=== PATIENT | male | born 1955 | race African-American/Black ===

== ENCOUNTER 2017-01-01 19:10 | Inpatient (IN) | payer BC ==
[~2017-01-01] VITALS: Ht 177.8 cm; Wt 73.0 kg
[2017-01-01 19:10] VITALS: BP_SYST 120
[2017-01-01] MEDS ORDERED: NACL 0.9% 1,000 ML IV SCH ×2 (19:14→23:45)
[2017-01-01] MEDS ORDERED: TACR1CAP PO (19:28)
[2017-01-01] MEDS ORDERED: COR25 PO (19:29)
[2017-01-01] MEDS ORDERED: ACETAMINOPHEN 500 MG TABLET PO ONE (19:30)
[2017-01-01] MEDS ORDERED: PRED5TAB PO (19:30)
[2017-01-01] MEDS ORDERED: MYCO500T PO (19:30)
[2017-01-01] MEDS ORDERED: VALS160T2 PO (19:31)
[2017-01-01] MEDS ORDERED: CALC0.258 PO (19:31)
[2017-01-01] MEDS ORDERED: UBID50TA3 PO (19:31)
[2017-01-01] MEDS ORDERED: FAMO20TA8 PO (19:32)
[2017-01-01] MEDS ORDERED: L.RH1CAP PO (19:32)
[2017-01-01] MEDS ORDERED: INSU100V SUBCUT (19:36)
[2017-01-01] MEDS ORDERED: ASPI81TA2 PO (19:37)
[2017-01-01] MEDS ORDERED: MULT PO (19:39)
[2017-01-01] MEDS ORDERED: ASCO500T20 PO (19:40)
[2017-01-01] MEDS ORDERED: CHOL500052 PO (19:41)
[2017-01-01] MEDS ORDERED: CHOL100053 PO (19:41)
[2017-01-01 19:56] LABS: INR 1.3 (0.80-1.20); PROTHROMBIN TIME 14.3 SECS (9.5-12.5)
[2017-01-01 20:04] LABS: CALCIUM 8.8 mg/dL (8.4-11.0); CHLORIDE 100 mmol/L (98-107); CREATININE 2.03 mg/dL (0.55-1.30); GLUCOSE 151 mg/dL (70-99); SODIUM SERUM 130 mmol/L (136-145); UREA NITROGEN, BLOOD 28 mg/dL (8-21)
[2017-01-01 20:05] LABS: EOSINOPHILS % (AUTO) 0.1 % (0.0-4.0); HEMATOCRIT 27.3 % (36-54); HEMOGLOBIN 8.7 g/dL (14.0-18.0); LYMPHOCYTES # (AUTO) 0.4 K/uL (1.0-5.5); LYMPHOCYTES % (AUTO) 15.5 % (20.5-51.5); MEAN CORPUSCULAR HEMOGLOBIN 27 pg (27-31); MEAN CORPUSCULAR HGB CONC 32 % (32-36); MEAN CORPUSCULAR VOLUME 84 fL (79.0-98.0); MONOCYTES # (AUTO) 0.1 K/uL (0.0-1.0); MONOCYTES % (AUTO) 3.6 % (1.7-9.3); NEUTROPHILS # (AUTO) 2.3 K/uL (1.8-7.7); NEUTROPHILS % (AUTO) 80.8 % (40.0-70.0); PLATELET COUNT (AUTO) 157 K/uL (130-430); RED BLOOD CELL COUNT(AUTO) 3.23 MIL/uL (4.2-6.2); RED CELL DISTRIBUTION WIDTH 18.1 % (9.0-15.0); WHITE BLOOD COUNT (AUTO) 2.8 K/uL (4.8-10.8)
[2017-01-01 20:09] LABS: ALANINE AMINOTRANSFERASE 26 U/L (12-78); ALBUMIN 2.1 g/dL (3.4-4.8); ASPARTATE AMINOTRANSFERASE 31 U/L (10-37); TOTAL BILIRUBIN 0.3 mg/dL (0.0-1.0); TOTAL PROTEIN, SERUM 7.3 g/dL (6.4-8.3)
[2017-01-01 20:15] LABS: GFR AFRICAN AMERICAN 43 mL/min (>90)
[2017-01-01 20:16] LABS: ANION GAP < 3 (5-15)
[2017-01-01] MEDS ORDERED: NS 500 ML IV ONE (21:30)
[2017-01-01] MEDS ORDERED: CALC-886 PO (22:02)
[2017-01-01] MEDS ORDERED: MAGNESIUM PO (22:04)
[2017-01-01] MEDS ORDERED: PROTEIN PO (22:04)
[2017-01-01] MEDS ORDERED: CEPH500C2 PO (22:05)
[2017-01-01] MEDS ORDERED: WARF1TAB2 PO (22:05)
[2017-01-01] MEDS ORDERED: OMEG300C3 PO (22:05)
[2017-01-01] MEDS ORDERED: cefTRIAXone 2 GM VIAL ONE (22:23)
[2017-01-01 23:05] VITALS: BP_SYST 108
[2017-01-01] MEDS ORDERED: ACETAMINOPHEN 325 MG TABLET PO PRN (23:45)
[2017-01-02] MEDS ORDERED: PIPERACILLIN/TAZOBACTAM 3.375 GM/VIAL (ZOSYN) IV ONE (00:11)
[2017-01-02] MEDS: PIPERACILLIN/TAZO 3.375/DEX-IS 50 ML IV SCH ×2 (00:18→05:32)
[2017-01-02 00:58] VITALS: BP_SYST 108
[2017-01-02] MEDS ORDERED: DEXTROSE 50% JECT 50 ML DISP.SYRIN ONE (06:26)
[2017-01-02] MEDS ORDERED: DEXTROSE 50% JECT 50 ML DISP.SYRIN IVP ONE (06:30)
[2017-01-02] MEDS ORDERED: NS 500 ML IV ONE (07:30)
[2017-01-02 08:00] VITALS: BP_SYST 116
[2017-01-02 08:28] LABS: BASOPHILS % (AUTO) 0.5 % (0.0-2.0); EOSINOPHILS % (AUTO) 0.1 % (0.0-4.0); HEMOGLOBIN 8.4 g/dL (14.0-18.0); LYMPHOCYTES # (AUTO) 0.4 K/uL (1.0-5.5); LYMPHOCYTES % (AUTO) 17.6 % (20.5-51.5); MEAN CORPUSCULAR HEMOGLOBIN 27 pg (27-31); MEAN CORPUSCULAR HGB CONC 33 % (32-36); MEAN CORPUSCULAR VOLUME 84 fL (79.0-98.0); MONOCYTES # (AUTO) 0.1 K/uL (0.0-1.0); MONOCYTES % (AUTO) 5.1 % (1.7-9.3); NEUTROPHILS # (AUTO) 1.8 K/uL (1.8-7.7); NEUTROPHILS % (AUTO) 76.7 % (40.0-70.0); PLATELET COUNT (AUTO) 125 K/uL (130-430); RED CELL DISTRIBUTION WIDTH 18.2 % (9.0-15.0); WHITE BLOOD COUNT (AUTO) 2.3 K/uL (4.8-10.8)
[2017-01-02 08:38] LABS: INR 1.4 (0.80-1.20); PROTHROMBIN TIME 15.3 SECS (9.5-12.5)
[2017-01-02 08:44] LABS: ALBUMIN 1.7 g/dL (3.4-4.8); CREATININE 1.93 mg/dL (0.55-1.30); POTASSIUM 4.2 mmol/L (3.5-5.1); TOTAL BILIRUBIN 0.3 mg/dL (0.0-1.0); TOTAL PROTEIN, SERUM 6.3 g/dL (6.4-8.3)
[2017-01-02] MEDS ORDERED: PROTEIN PO SCH (09:00)
[2017-01-02] MEDS ORDERED: MAGNESIUM PO SCH (09:00)
[2017-01-02] MEDS ORDERED: NON-FORMULARY MEDICATION (Omega-3 Fatty Acids (Fish Oil) 300 MG) PO SCH (09:00)
[2017-01-02] MEDS ORDERED: WARFARIN SODIUM 1 MG TABLET PO SCH ×2 (09:00→18:00)
[2017-01-02] MEDS ORDERED: NON-FORMULARY MEDICATION (Ubidecarenone (Coq10) 100 MG) PO SCH (09:00)
[2017-01-02] MEDS ORDERED: LACTOBACILLUS RHAMNOSUS GG 1 CAP CAPSULE PO SCH (09:00)
[2017-01-02] MEDS: PREDNISONE 20 MG TABLET PO SCH (09:08)
[2017-01-02] MEDS: CALCITRIOL 0.25 MCG CAPSULE PO SCH (09:09)
[2017-01-02] MEDS: VALSARTAN 160 MG TABLET (DIOVAN) PO SCH (09:09)
[2017-01-02] MEDS: ASCORBIC ACID 500 MG TABLET PO SCH (09:10)
[2017-01-02] MEDS: FAMOTIDINE 20 MG TABLET PO SCH (09:11)
[2017-01-02] MEDS: CARVEDILOL 25 MG TABLET (COREG) PO SCH ×2 (09:11→20:50)
[2017-01-02] MEDS: MULTIVITAMINS TAB 1 TABLET PO SCH (09:11)
[2017-01-02] MEDS: ASPIRIN 81 MG TAB.CHEW PO SCH (09:11)
[2017-01-02 09:27] LABS: BILIRUBIN,URINE NEGATIVE (NEGATIVE); BLOOD, URINE NEGATIVE (NEGATIVE); CLARITY/URINE CLEAR (CLEAR); COLOR,URINE YELLOW (YELLOW); GLUCOSE,URINE NEGATIVE (NEGATIVE); KETONES,URINE NEGATIVE (NEGATIVE); LEUKOCYTE ESTERASE ,URINE NEGATIVE (NEGATIVE); NITRITE, URINE NEGATIVE (NEGATIVE); PH,URINE 6.5 (5.0-8.0); PROTEIN URINE TRACE (NEGATIVE); UROBILINOGEN,URINE 0.2 (0.2-1.0)
[2017-01-02] MEDS: MYCOPHENOLATE MOFETIL 250 MG CAPSULE PO SCH ×2 (09:29→20:51)
[2017-01-02] MEDS: D5/0.45 NS 1,000 ML IV SCH ×2 (09:33→20:49)
[2017-01-02 12:00] VITALS: BP_SYST 96
[2017-01-02 16:00] VITALS: BP_SYST 94
[2017-01-02] MEDS: TACROLIMUS ANHYDROUS 1 MG CAPSULE (PROGRAF) PO SCH ×2 (17:03→20:50)
[2017-01-02] MEDS: INSULIN REGULAR, HUMAN 100 UNITS/ML, 10 ML VIAL (novoLIN R) SUBCUT PRN ×2 (17:08→20:56)
[2017-01-02 20:00] VITALS: BP_SYST 99
[2017-01-02] MEDS: metroNIDAZOLE 500 MG TABLET PO SCH (20:49)
[2017-01-02] MEDS: DOXYCYCLINE HYCLATE 100 MG CAPSULE PO SCH (20:49)
[2017-01-02] MEDS: CEFEPIME 1 GM in D5W 50 ML IV SCH (20:49)
[2017-01-02 23:42] VITALS: BP_SYST 109
[2017-01-02] MEDS: NACL 0.9% 1,000 ML IV SCH (23:44)
[2017-01-03 04:17] VITALS: BP_SYST 146
[2017-01-03] MEDS: INSULIN REGULAR, HUMAN 100 UNITS/ML, 10 ML VIAL (novoLIN R) SUBCUT PRN ×3 (06:30→17:33)
[2017-01-03 07:15] LABS: HEMOGLOBIN 7.9 g/dL (14.0-18.0); RED CELL DISTRIBUTION WIDTH 18.3 % (9.0-15.0)
[2017-01-03 07:28] LABS: HEMATOCRIT 24.5 % (36-54); MEAN CORPUSCULAR HEMOGLOBIN 27 pg (27-31); MEAN CORPUSCULAR HGB CONC 32 % (32-36); MEAN CORPUSCULAR VOLUME 84 fL (79.0-98.0); PLATELET COUNT (AUTO) 125 K/uL (130-430); RED BLOOD CELL COUNT(AUTO) 2.92 MIL/uL (4.2-6.2); WHITE BLOOD COUNT (AUTO) 2.2 K/uL (4.8-10.8)
[2017-01-03 07:29] LABS: CALCIUM 8.1 mg/dL (8.4-11.0); CREATININE 1.71 mg/dL (0.55-1.30); POTASSIUM 4.3 mmol/L (3.5-5.1)
[2017-01-03 07:32] LABS: INR 1.3 (0.80-1.20); PROTHROMBIN TIME 14.5 SECS (9.5-12.5)
[2017-01-03 08:30] VITALS: BP_SYST 148
[2017-01-03 08:39] LABS: BAND % (MANUAL) 17 % (0-6); BASOPHILS % (MANUAL) 0 % (0-2); EOSINOPHILS % (MANUAL) 1 % (0-7); LYMPHOCYTES % (MANUAL) 17 % (20-46); MONOCYTES % (MANUAL) 4 % (0-11)
[2017-01-03] MEDS: PREDNISONE 20 MG TABLET PO SCH (08:59)
[2017-01-03] MEDS: LACTOBACILLUS RHAMNOSUS GG 1 CAP CAPSULE PO SCH ×2 (09:00→20:48)
[2017-01-03] MEDS: CALCITRIOL 0.25 MCG CAPSULE PO SCH (09:00)
[2017-01-03] MEDS: DOXYCYCLINE HYCLATE 100 MG CAPSULE PO SCH ×2 (09:00→21:15)
[2017-01-03] MEDS: CALCIUM CARBONATE/VITAMIN D3 1 TAB TABLET PO SCH (09:01)
[2017-01-03] MEDS: VALSARTAN 160 MG TABLET (DIOVAN) PO SCH (09:02)
[2017-01-03] MEDS: CHOLECALCIFEROL (VITAMIN D3) 2,000 UNIT TABLET PO SCH ×3 (09:03→20:48)
[2017-01-03] MEDS: FAMOTIDINE 20 MG TABLET PO SCH (09:04)
[2017-01-03] MEDS: metroNIDAZOLE 500 MG TABLET PO SCH ×3 (09:04→20:48)
[2017-01-03] MEDS: CARVEDILOL 25 MG TABLET (COREG) PO SCH ×2 (09:04→20:51)
[2017-01-03] MEDS: MULTIVITAMINS TAB 1 TABLET PO SCH (09:04)
[2017-01-03] MEDS: ASPIRIN 81 MG TAB.CHEW PO SCH (09:04)
[2017-01-03] MEDS: ASCORBIC ACID 500 MG TABLET PO SCH (09:04)
[2017-01-03] MEDS: TACROLIMUS ANHYDROUS 1 MG CAPSULE (PROGRAF) PO SCH ×4 (09:05→20:49)
[2017-01-03] MEDS: MYCOPHENOLATE MOFETIL 250 MG CAPSULE PO SCH ×2 (09:05→20:49)
[2017-01-03] MEDS: CEFEPIME 1 GM in D5W 50 ML IV SCH ×2 (09:06→20:53)
[2017-01-03] MEDS: NACL 0.9% 1,000 ML IV SCH (09:50)
[2017-01-03] MEDS ORDERED: INSULIN ASPART 100 UNITS/ML, 10 ML VIAL SUBCUT ONE (12:15)
[2017-01-03 12:32] VITALS: BP_SYST 139
[2017-01-03 16:16] VITALS: BP_SYST 150
[2017-01-03] MEDS: WARFARIN SODIUM 2 MG TABLET PO SCH (17:34)
[2017-01-03] MEDS: INSULIN ASPART 100 UNITS/ML, 10 ML VIAL (NovoLOG) SUBCUT PRN (20:55)
[2017-01-04 00:03] VITALS: BP_SYST 164
[2017-01-04] MEDS: NACL 0.9% 1,000 ML IV SCH ×3 (01:31→14:52)
[2017-01-04 03:56] VITALS: BP_SYST 168
[2017-01-04] MEDS ORDERED: cloNIDine HCL 0.1 MG TABLET PO PRN (05:00)
[2017-01-04] MEDS: INSULIN ASPART 100 UNITS/ML, 10 ML VIAL SUBCUT SCH ×3 (06:20→17:27)
[2017-01-04] MEDS: INSULIN ASPART 100 UNITS/ML, 10 ML VIAL (NovoLOG) SUBCUT PRN ×4 (06:23→21:17)
[2017-01-04 06:58] LABS: BASOPHILS % (AUTO) 0.2 % (0.0-2.0); EOSINOPHILS % (AUTO) 0.3 % (0.0-4.0); HEMATOCRIT 25.7 % (36-54); HEMOGLOBIN 8.2 g/dL (14.0-18.0); LYMPHOCYTES # (AUTO) 0.5 K/uL (1.0-5.5); LYMPHOCYTES % (AUTO) 20.1 % (20.5-51.5); MEAN CORPUSCULAR HEMOGLOBIN 27 pg (27-31); MEAN CORPUSCULAR HGB CONC 32 % (32-36); MEAN CORPUSCULAR VOLUME 84 fL (79.0-98.0); MONOCYTES # (AUTO) 0.2 K/uL (0.0-1.0); MONOCYTES % (AUTO) 6.8 % (1.7-9.3); NEUTROPHILS % (AUTO) 72.6 % (40.0-70.0); PLATELET COUNT (AUTO) 146 K/uL (130-430); RED BLOOD CELL COUNT(AUTO) 3.06 MIL/uL (4.2-6.2); RED CELL DISTRIBUTION WIDTH 17.8 % (9.0-15.0); WHITE BLOOD COUNT (AUTO) 2.7 K/uL (4.8-10.8)
[2017-01-04 07:15] LABS: CALCIUM 8.6 mg/dL (8.4-11.0); CREATININE 1.38 mg/dL (0.55-1.30); POTASSIUM 4.2 mmol/L (3.5-5.1); THYROID STIMULATING HORMONE 1.87 uIu/mL (0.34-4.82)
[2017-01-04 08:00] VITALS: BP_SYST 122
[2017-01-04 08:01] LABS: IRON (SERUM) 86 mcg/dL (59-158); TOTAL IRON BIND. CAPACITY 94 ug/dL (250-450)
[2017-01-04] MEDS: TACROLIMUS ANHYDROUS 1 MG CAPSULE (PROGRAF) PO SCH ×4 (10:30→21:17)
[2017-01-04] MEDS: CEFEPIME 1 GM in D5W 50 ML IV SCH ×2 (10:30→21:17)
[2017-01-04] MEDS: MYCOPHENOLATE MOFETIL 250 MG CAPSULE PO SCH ×2 (10:30→21:18)
[2017-01-04] MEDS: CHOLECALCIFEROL (VITAMIN D3) 2,000 UNIT TABLET PO SCH ×2 (10:31→21:19)
[2017-01-04] MEDS: VALSARTAN 160 MG TABLET (DIOVAN) PO SCH (10:32)
[2017-01-04] MEDS: metroNIDAZOLE 500 MG TABLET PO SCH ×3 (10:32→21:18)
[2017-01-04] MEDS: LACTOBACILLUS RHAMNOSUS GG 1 CAP CAPSULE PO SCH ×2 (10:32→21:19)
[2017-01-04] MEDS: CARVEDILOL 25 MG TABLET (COREG) PO SCH ×2 (10:33→21:20)
[2017-01-04] MEDS: CALCIUM CARBONATE/VITAMIN D3 1 TAB TABLET PO SCH (10:34)
[2017-01-04] MEDS: MULTIVITAMINS TAB 1 TABLET PO SCH (10:34)
[2017-01-04] MEDS: ASCORBIC ACID 500 MG TABLET PO SCH (10:34)
[2017-01-04] MEDS: ASPIRIN 81 MG TAB.CHEW PO SCH (10:34)
[2017-01-04] MEDS: DOXYCYCLINE HYCLATE 100 MG CAPSULE PO SCH ×2 (10:34→21:19)
[2017-01-04] MEDS: FAMOTIDINE 20 MG TABLET PO SCH (10:35)
[2017-01-04] MEDS: PREDNISONE 20 MG TABLET PO SCH (10:35)
[2017-01-04] MEDS: CALCITRIOL 0.25 MCG CAPSULE PO SCH (11:44)
[2017-01-04 12:16] VITALS: BP_SYST 152
[2017-01-04 16:02] VITALS: BP_SYST 147
[2017-01-04] MEDS: WARFARIN SODIUM 2 MG TABLET PO SCH (17:26)
[2017-01-04 19:45] VITALS: BP_SYST 154
[2017-01-05] MEDS: NACL 0.9% 1,000 ML IV SCH ×3 (00:11→11:29)
[2017-01-05 00:34] VITALS: BP_SYST 139
[2017-01-05 04:00] VITALS: BP_SYST 143
[2017-01-05] MEDS: INSULIN ASPART 100 UNITS/ML, 10 ML VIAL SUBCUT SCH ×3 (06:23→17:00)
[2017-01-05 07:10] LABS: CALCIUM 8.7 mg/dL (8.4-11.0); CREATININE 1.35 mg/dL (0.55-1.30); POTASSIUM 4.5 mmol/L (3.5-5.1)
[2017-01-05 07:12] LABS: INR 1.3 (0.80-1.20); PROTHROMBIN TIME 14.5 SECS (9.5-12.5)
[2017-01-05 07:22] LABS: HEMATOCRIT 25.1 % (36-54); HEMOGLOBIN 8.3 g/dL (14.0-18.0); MEAN CORPUSCULAR HEMOGLOBIN 28 pg (27-31); MEAN CORPUSCULAR HGB CONC 33 % (32-36); MEAN CORPUSCULAR VOLUME 84 fL (79.0-98.0); PLATELET COUNT (AUTO) 135 K/uL (130-430); RED BLOOD CELL COUNT(AUTO) 2.98 MIL/uL (4.2-6.2); RED CELL DISTRIBUTION WIDTH 18.1 % (9.0-15.0); WHITE BLOOD COUNT (AUTO) 2.8 K/uL (4.8-10.8)
[2017-01-05 08:17] LABS: BAND % (MANUAL) 14 % (0-6); BASOPHILS % (MANUAL) 0 % (0-2); EOSINOPHILS % (MANUAL) 0 % (0-7); LYMPHOCYTES % (MANUAL) 29 % (20-46); MONOCYTES % (MANUAL) 4 % (0-11)
[2017-01-05] MEDS: CEFEPIME 1 GM in D5W 50 ML IV SCH (08:21)
[2017-01-05] MEDS: ASPIRIN 81 MG TAB.CHEW PO SCH (08:22)
[2017-01-05] MEDS: ASCORBIC ACID 500 MG TABLET PO SCH (08:22)
[2017-01-05] MEDS: LACTOBACILLUS RHAMNOSUS GG 1 CAP CAPSULE PO SCH (08:22)
[2017-01-05] MEDS: DOXYCYCLINE HYCLATE 100 MG CAPSULE PO SCH (08:22)
[2017-01-05] MEDS: CARVEDILOL 25 MG TABLET (COREG) PO SCH (08:22)
[2017-01-05] MEDS: FAMOTIDINE 20 MG TABLET PO SCH (08:22)
[2017-01-05] MEDS: VALSARTAN 160 MG TABLET (DIOVAN) PO SCH (08:22)
[2017-01-05] MEDS: MYCOPHENOLATE MOFETIL 250 MG CAPSULE PO SCH (08:23)
[2017-01-05] MEDS: MULTIVITAMINS TAB 1 TABLET PO SCH (08:23)
[2017-01-05] MEDS: metroNIDAZOLE 500 MG TABLET PO SCH ×2 (08:23→14:03)
[2017-01-05] MEDS: TACROLIMUS ANHYDROUS 1 MG CAPSULE (PROGRAF) PO SCH ×3 (08:23→17:16)
[2017-01-05] MEDS: PREDNISONE 20 MG TABLET PO SCH (08:23)
[2017-01-05] MEDS: CHOLECALCIFEROL (VITAMIN D3) 2,000 UNIT TABLET PO SCH (08:23)
[2017-01-05] MEDS: CALCIUM CARBONATE/VITAMIN D3 1 TAB TABLET PO SCH (09:21)
[2017-01-05] MEDS: CALCITRIOL 0.25 MCG CAPSULE PO SCH (09:21)
[2017-01-05 09:30] VITALS: BP_SYST 151
[2017-01-05] MEDS: INSULIN ASPART 100 UNITS/ML, 10 ML VIAL (NovoLOG) SUBCUT PRN (11:29)
[2017-01-05 11:48] VITALS: BP_SYST 148
[2017-01-05 15:25] VITALS: BP_SYST 144
[2017-01-05 16:47] VITALS: BP_SYST 144
[2017-01-05] MEDS ORDERED: METR500T PO (16:59)
[2017-01-05] MEDS ORDERED: EPOETIN ALFA 3,000 UNITS/ML VIAL SUBCUT SCH (17:00)
[2017-01-05] MEDS ORDERED: WARFARIN SODIUM 3 MG TABLET PO SCH (18:00)
== END 2017-01-05 18:00 | disposition home or self-care (01) | DRG 371 ==
LOC: SED 19:10 → STU 22:01
PROVIDERS: ADMIT Internal Medicine; ATTEND Internal Medicine
DX: A04.7 Enterocolitis due to Clostridium difficile (principal); E43 Unspecified severe protein-calorie malnutrition; N18.6 End stage renal disease; Z94.0 Kidney transplant status; I12.0 Hypertensive chronic kidney disease with stage 5 chronic kidney disease or end stage renal disease; L97.419 Non-pressure chronic ulcer of right heel and midfoot with unspecified severity; L97.429 Non-pressure chronic ulcer of left heel and midfoot with unspecified severity; L03.116 Cellulitis of left lower limb; L03.115 Cellulitis of right lower limb; D69.6 Thrombocytopenia, unspecified; D64.9 Anemia, unspecified; E11.649 Type 2 diabetes mellitus with hypoglycemia without coma; E11.22 Type 2 diabetes mellitus with diabetic chronic kidney disease; E11.621 Type 2 diabetes mellitus with foot ulcer; K21.9 Gastro-esophageal reflux disease without esophagitis; M72.9 Fibroblastic disorder, unspecified; Z79.899 Other long term (current) drug therapy; Z79.82 Long term (current) use of aspirin; Z79.4 Long term (current) use of insulin; Z68.23 Body mass index [BMI] 23.0-23.9, adult
CPT/HCPCS: 36415; 71010; 80048; 80053; 81003; 82150-TC; 82272; 82607; 82728; 82746; 82962; 83036; 83540-TC; 83550-TC; 83605; 84443-TC; 85007; 85025; 85027; 85610-TC; 85651-TC; 85730-TC; 86140; 86480; 86635; 87040-TC; 87070-TC; 87081; 87230-TC; 93005; 96365; 97116-GP; 97530-GP; 99285; J0692; J0696; J0885; J1815; J2543; J7030; J7040; J7060; J7507; J7512; J7517

== ENCOUNTER 2017-02-20 16:48 | Inpatient (IN) | payer BC ==
[~2017-02-20] VITALS: Ht 180.3 cm; Wt 69.9 kg
[2017-02-20 16:48] VITALS: BP_SYST 107
[~2017-02-20 16:48] MED LIST: ASCO500T20 PO; ASPI81TA2 PO; CALC-886 PO; CALC0.258 PO; CHOL500052 PO; COR25 PO; FAMO20TA8 PO; INSU100V SUBCUT; L.RH1CAP PO; MAGNESIUM PO; METR500T PO; MULT PO; MYCO500T PO; OMEG300C3 PO; PROTEIN PO; TACR1CAP PO; UBID50TA3 PO; VALS160T2 PO; WARF1TAB2 PO
[2017-02-20 17:49] LABS: HEMOGLOBIN 9.2 g/dL (14.0-18.0); MEAN CORPUSCULAR HEMOGLOBIN 28 pg (27-31); MEAN CORPUSCULAR HGB CONC 33 % (32-36); MEAN CORPUSCULAR VOLUME 86 fL (79.0-98.0); RED BLOOD CELL COUNT(AUTO) 3.26 MIL/uL (4.2-6.2); RED CELL DISTRIBUTION WIDTH 18.1 % (9.0-15.0); WHITE BLOOD COUNT (AUTO) 4.7 K/uL (4.8-10.8)
[2017-02-20 18:07] LABS: PLATELET COUNT (AUTO) 62 K/uL (130-430)
[2017-02-20 18:11] LABS: CALCIUM 10.2 mg/dL (8.4-11.0); CREATININE 6.76 mg/dL (0.55-1.30); POTASSIUM 5.3 mmol/L (3.5-5.1)
[2017-02-20 18:13] LABS: INR 1.1 (0.80-1.20); PROTHROMBIN TIME 12.3 SECS (9.5-12.5)
[2017-02-20 18:16] LABS: ALBUMIN 2.5 g/dL (3.4-4.8); TOTAL BILIRUBIN 0.4 mg/dL (0.0-1.0); TOTAL PROTEIN, SERUM 9.2 g/dL (6.4-8.3)
[2017-02-20 18:27] LABS: ATYPICAL LYMPHOCYTES % 0 % (0-0); BAND % (MANUAL) 12 % (0-6); BASOPHILS % (MANUAL) 0 % (0-2); EOSINOPHILS % (MANUAL) 12 % (0-7); LYMPHOCYTES % (MANUAL) 16 % (20-46); MONOCYTES % (MANUAL) 7 % (0-11)
[2017-02-20] MEDS ORDERED: CALCIUM CHLORIDE 1 GM/10ML VIAL (13.6 mEq Ca++/VIAL) IVP ONE (18:30)
[2017-02-20] MEDS ORDERED: DEXTROSE 50% JECT 50 ML DISP.SYRIN IVP ONE (18:30)
[2017-02-20] MEDS ORDERED: SODIUM POLYSTYRENE SULFONATE 15 GM/60 ML UDBTL PO ONE (18:30)
[2017-02-20] MEDS ORDERED: SODIUM BICARBONATE 8.4% JECT 50 MEQ/50 ML SYRINGE IVP ONE (18:30)
[2017-02-20] MEDS ORDERED: INSULIN REGULAR, HUMAN 10 UNITS/0.1 ML INJ IVP ONE (18:30)
[2017-02-20] MEDS ORDERED: NACL 0.9% 1,000 ML IV ONE (18:30)
[2017-02-20] MEDS ORDERED: cefTRIAXone 1 GM IVPB PREMIX 50 ML IV ONE (18:45)
[2017-02-20 19:47] VITALS: BP_SYST 128
[2017-02-20 19:48] VITALS: BP_SYST 128
[2017-02-20] MEDS ORDERED: PROTEIN PO SCH (21:00)
[2017-02-20] MEDS ORDERED: TACROLIMUS ANHYDROUS 1 MG CAPSULE (PROGRAF) PO SCH (21:00)
[2017-02-20] MEDS ORDERED: ONDANSETRON HCL 4 MG/2 ML VIAL IVP PRN (21:00)
[2017-02-20] MEDS ORDERED: NACL 0.9% 1,000 ML IV SCH (21:00)
[2017-02-20] MEDS ORDERED: CHOLECALCIFEROL 5000 UNIT PO SCH (21:00)
[2017-02-20] MEDS ORDERED: metroNIDAZOLE 500 MG TABLET PO SCH (21:00)
[2017-02-20] MEDS ORDERED: NON-FORMULARY MEDICATION (Lactobacillus Rhamnosus Gg (Probiotic) 1 EACH) PO SCH (21:00)
[2017-02-20] MEDS ORDERED: methylPREDNISolone SOD SUCC/PF 62.5 MG/ML VIAL IVP ONE (21:00)
[2017-02-20] MEDS ORDERED: MYCOPHENOLATE MOFETIL 250 MG CAPSULE PO SCH (21:00)
[2017-02-20] MEDS ORDERED: MAGNESIUM PO SCH (21:00)
[2017-02-20] MEDS ORDERED: D5W 1,000 ML IV PRN ×2 (21:21→21:36)
[2017-02-20] MEDS ORDERED: DEXTROSE 50% JECT 50 ML DISP.SYRIN IVP PRN ×4 (21:30→21:45)
[2017-02-20] MEDS ORDERED: GLUCOSE 15 GM GEL (in 37.5 GM TUBE) PO PRN ×4 (21:30→21:45)
[2017-02-20] MEDS ORDERED: DEXTROSE 50% JECT 50 ML DISP.SYRIN ONE (21:32)
[2017-02-20] MEDS ORDERED: TAMSULOSIN HCL 0.4 MG CAP PO ONE (23:00)
[2017-02-21] VITALS (9 sets, daily range): BP systolic 132–182
[2017-02-21 01:59] LABS: BILIRUBIN,URINE NEGATIVE (NEGATIVE); BLOOD, URINE NEGATIVE (NEGATIVE); CLARITY/URINE CLEAR (CLEAR); COLOR,URINE YELLOW (YELLOW); GLUCOSE,URINE 3+ (NEGATIVE); KETONES,URINE NEGATIVE (NEGATIVE); LEUKOCYTE ESTERASE ,URINE NEGATIVE (NEGATIVE); NITRITE, URINE NEGATIVE (NEGATIVE); PH,URINE 5.5 (5.0-8.0); PROTEIN URINE TRACE (NEGATIVE); UROBILINOGEN,URINE 0.2 (0.2-1.0)
[2017-02-21 02:14] LABS: BACTERIA,URINE FEW /HPF (None Seen); MUCUS,URINE None Seen /LPF (None Seen); RBC,URINE 0-3 /HPF (0-3); WBC,URINE 0-3 /HPF (0-3)
[2017-02-21] MEDS: methylPREDNISolone SOD SUCC/PF 62.5 MG/ML VIAL IVP SCH ×3 (05:24→22:40)
[2017-02-21] MEDS: INSULIN REGULAR, HUMAN 100 UNITS/ML, 10 ML VIAL (novoLIN R) SUBCUT PRN ×2 (05:34→11:23)
[2017-02-21 06:26] LABS: BASOPHILS % (AUTO) 0.7 % (0.0-2.0); EOSINOPHILS % (AUTO) 0.1 % (0.0-4.0); HEMATOCRIT 26.1 % (36-54); HEMOGLOBIN 8.5 g/dL (14.0-18.0); LYMPHOCYTES # (AUTO) 0.3 K/uL (1.0-5.5); MEAN CORPUSCULAR HEMOGLOBIN 28 pg (27-31); MEAN CORPUSCULAR HGB CONC 33 % (32-36); MEAN CORPUSCULAR VOLUME 87 fL (79.0-98.0); MONOCYTES # (AUTO) 0.1 K/uL (0.0-1.0); MONOCYTES % (AUTO) 3.9 % (1.7-9.3); NEUTROPHILS # (AUTO) 2.3 K/uL (1.8-7.7); NEUTROPHILS % (AUTO) 84.3 % (40.0-70.0); PLATELET COUNT (AUTO) 61 K/uL (130-430); RED BLOOD CELL COUNT(AUTO) 3.01 MIL/uL (4.2-6.2); RED CELL DISTRIBUTION WIDTH 17.8 % (9.0-15.0); WHITE BLOOD COUNT (AUTO) 2.7 K/uL (4.8-10.8)
[2017-02-21 07:43] LABS: CALCIUM 9.6 mg/dL (8.4-11.0); CREATININE 6.52 mg/dL (0.55-1.30)
[2017-02-21 07:45] LABS: POTASSIUM 6.5 mmol/L (3.5-5.1)
[2017-02-21] MEDS ORDERED: VITAMIN D3 PO SCH (09:00)
[2017-02-21] MEDS ORDERED: [UNRECOGNIZED DRUG - OTHER] PO SCH (09:00)
[2017-02-21] MEDS ORDERED: ETHAMBUTOL HCL 100 MG TABLET PO SCH (09:00)
[2017-02-21] MEDS ORDERED: NON-FORMULARY MEDICATION (Omega-3 Fatty Acids (Fish Oil) 300 MG) PO SCH (09:00)
[2017-02-21] MEDS ORDERED: CALCIUM CARBONATE PO SCH (09:00)
[2017-02-21] MEDS ORDERED: NON-FORMULARY MEDICATION (Ubidecarenone (Coq10) 100 MG) PO SCH (09:00)
[2017-02-21] MEDS: MULTIVITAMINS TAB 1 TABLET PO SCH (09:20)
[2017-02-21] MEDS: FAMOTIDINE 20 MG TABLET PO SCH (09:20)
[2017-02-21] MEDS: ASCORBIC ACID 500 MG TABLET PO SCH (09:20)
[2017-02-21] MEDS: AZITHROMYCIN 250 MG TABLET PO SCH (09:20)
[2017-02-21] MEDS: CALCITRIOL 0.25 MCG CAPSULE PO SCH (09:20)
[2017-02-21] MEDS: ETHAMBUTOL 400 MG PO SCH ×3 (09:29→21:08)
[2017-02-21] MEDS: MYCOPHENOLATE MOFETIL 250 MG CAPSULE PO SCH ×3 (10:30→21:13)
[2017-02-21] MEDS ORDERED: SODIUM POLYSTYRENE SULFONATE 15 GM/60 ML UDBTL PO ONE (10:30)
[2017-02-21] MEDS: TACROLIMUS ANHYDROUS 1 MG CAPSULE (PROGRAF) PO ONE ×2 (11:08→14:16)
[2017-02-21] MEDS: INSULIN ASPART 100 UNITS/ML, 10 ML VIAL (NovoLOG) SUBCUT PRN ×2 (17:03→21:38)
[2017-02-21 20:35] LABS: CALCIUM 9.7 mg/dL (8.4-11.0)
[2017-02-21 20:36] LABS: CREATININE 6.93 mg/dL (0.55-1.30); POTASSIUM 5.8 mmol/L (3.5-5.1)
[2017-02-21] MEDS: CHOLECALCIFEROL (VITAMIN D3) 2,000 UNIT TABLET PO SCH (21:07)
[2017-02-21] MEDS: LACTOBACILLUS RHAMNOSUS GG 1 CAP CAPSULE PO SCH (21:08)
[2017-02-21] MEDS: TACROLIMUS ANHYDROUS 1 MG CAPSULE (PROGRAF) PO SCH (21:08)
[2017-02-22 03:55] VITALS: BP_SYST 125
[2017-02-22] MEDS: methylPREDNISolone SOD SUCC/PF 62.5 MG/ML VIAL IVP SCH ×3 (06:22→21:46)
[2017-02-22] MEDS: INSULIN ASPART 100 UNITS/ML, 10 ML VIAL (NovoLOG) SUBCUT PRN ×4 (06:27→21:49)
[2017-02-22 06:28] LABS: INR 1.2 (0.80-1.20); PROTHROMBIN TIME 12.5 SECS (9.5-12.5)
[2017-02-22 06:36] LABS: ALBUMIN 2.3 g/dL (3.4-4.8); CALCIUM 9.8 mg/dL (8.4-11.0); CREATININE 6.73 mg/dL (0.55-1.30); POTASSIUM 5.4 mmol/L (3.5-5.1); TOTAL BILIRUBIN 0.3 mg/dL (0.0-1.0); TOTAL PROTEIN, SERUM 8.5 g/dL (6.4-8.3)
[2017-02-22 07:17] LABS: HEMATOCRIT 28.2 % (36-54); HEMOGLOBIN 8.9 g/dL (14.0-18.0); MEAN CORPUSCULAR HEMOGLOBIN 27 pg (27-31); MEAN CORPUSCULAR HGB CONC 32 % (32-36); MEAN CORPUSCULAR VOLUME 86 fL (79.0-98.0); PLATELET COUNT (AUTO) 97 K/uL (130-430); RED BLOOD CELL COUNT(AUTO) 3.29 MIL/uL (4.2-6.2); RED CELL DISTRIBUTION WIDTH 17.9 % (9.0-15.0); WHITE BLOOD COUNT (AUTO) 5.1 K/uL (4.8-10.8)
[2017-02-22 08:12] VITALS: BP_SYST 170
[2017-02-22] MEDS: CALCITRIOL 0.25 MCG CAPSULE PO SCH (09:09)
[2017-02-22] MEDS: CHOLECALCIFEROL (VITAMIN D3) 2,000 UNIT TABLET PO SCH ×2 (09:09→21:46)
[2017-02-22] MEDS: ASCORBIC ACID 500 MG TABLET PO SCH (09:10)
[2017-02-22] MEDS: AZITHROMYCIN 250 MG TABLET PO SCH (09:10)
[2017-02-22] MEDS: MULTIVITAMINS TAB 1 TABLET PO SCH (09:10)
[2017-02-22] MEDS: LACTOBACILLUS RHAMNOSUS GG 1 CAP CAPSULE PO SCH ×2 (09:10→21:47)
[2017-02-22] MEDS: FAMOTIDINE 20 MG TABLET PO SCH (09:10)
[2017-02-22] MEDS: MYCOPHENOLATE MOFETIL 250 MG CAPSULE PO SCH ×2 (09:11→21:36)
[2017-02-22] MEDS: TACROLIMUS ANHYDROUS 1 MG CAPSULE (PROGRAF) PO SCH ×2 (09:11→21:37)
[2017-02-22] MEDS: ETHAMBUTOL 400 MG PO SCH ×3 (09:14→21:47)
[2017-02-22 09:43] LABS: BAND % (MANUAL) 12 % (0-6); LYMPHOCYTES % (MANUAL) 2 % (20-46)
[2017-02-22 09:44] LABS: BASOPHILS % (MANUAL) 0 % (0-2); EOSINOPHILS % (MANUAL) 0 % (0-7); METAMYELOCYTES % 1 % (0-0); MONOCYTES % (MANUAL) 8 % (0-11)
[2017-02-22 11:33] VITALS: BP_SYST 175
[2017-02-22] MEDS ORDERED: INSULIN ASPART 100 UNITS/ML, 10 ML VIAL SUBCUT SCH (17:00)
[2017-02-22 20:19] VITALS: BP_SYST 172
== END 2017-02-22 22:40 | disposition short-term general hospital (02) | DRG 698 ==
LOC: SED 16:48 → STU 18:41
PROVIDERS: ADMIT Internal Medicine; ATTEND Internal Medicine
DX: T86.11 Kidney transplant rejection (principal); E43 Unspecified severe protein-calorie malnutrition; N18.6 End stage renal disease; N17.9 Acute kidney failure, unspecified; I12.0 Hypertensive chronic kidney disease with stage 5 chronic kidney disease or end stage renal disease; D61.818 Other pancytopenia; A31.0 Pulmonary mycobacterial infection; E87.1 Hypo-osmolality and hyponatremia; N12 Tubulo-interstitial nephritis, not specified as acute or chronic; R62.7 Adult failure to thrive; D69.6 Thrombocytopenia, unspecified; D64.9 Anemia, unspecified; E87.5 Hyperkalemia; E11.22 Type 2 diabetes mellitus with diabetic chronic kidney disease; E11.649 Type 2 diabetes mellitus with hypoglycemia without coma; Y83.0 Surgical operation with transplant of whole organ as the cause of abnormal reaction of the patient, or of later complication, without mention of misadventure at the time of the procedure; Z79.01 Long term (current) use of anticoagulants; Z79.82 Long term (current) use of aspirin; Z79.899 Other long term (current) drug therapy; Z68.25 Body mass index [BMI] 25.0-25.9, adult; Z87.891 Personal history of nicotine dependence; Y93.89 Activity, other specified; Y92.89 Other specified places as the place of occurrence of the external cause; Y99.8 Other external cause status
CPT/HCPCS: 36415; 71010; 80048; 80053; 81000-TC; 82962; 83605; 83880; 84484; 85007; 85025; 85027; 85610-TC; 85651-TC; 85730-TC; 87040-TC; 87081; 93005; 96365; 96375; 99285; J0696; J1815; J2930; J7030; J7507; J7517; Q0144

== ENCOUNTER 2017-03-22 14:13 | Inpatient (IN) | payer BC ==
[~2017-03-22] VITALS: Ht 177.8 cm; Wt 69.9 kg
[2017-03-22 14:13] VITALS: BP_SYST 144
[2017-03-22 14:46] LABS: HEMOGLOBIN 7.1 g/dL (14.0-18.0); MEAN CORPUSCULAR HEMOGLOBIN 28 pg (27-31); MEAN CORPUSCULAR HGB CONC 33 % (32-36); MEAN CORPUSCULAR VOLUME 86 fL (79.0-98.0); PLATELET COUNT (AUTO) 85 K/uL (130-430); RED BLOOD CELL COUNT(AUTO) 2.51 MIL/uL (4.2-6.2); RED CELL DISTRIBUTION WIDTH 15.3 % (9.0-15.0)
[2017-03-22 14:50] LABS: HEMATOCRIT 21.4 % (36-54)
[2017-03-22 14:53] LABS: CALCIUM 8.5 mg/dL (8.4-11.0); CREATININE 6.51 mg/dL (0.55-1.30); POTASSIUM 4.3 mmol/L (3.5-5.1)
[2017-03-22 15:00] LABS: INR 1.1 (0.80-1.20); PROTHROMBIN TIME 12.3 SECS (9.5-12.5)
[2017-03-22 15:13] LABS: ALBUMIN 2.4 g/dL (3.4-4.8); TOTAL BILIRUBIN 0.3 mg/dL (0.0-1.0); TOTAL PROTEIN, SERUM 7.3 g/dL (6.4-8.3)
[2017-03-22] MEDS ORDERED: NIFE-2 PO (15:21)
[2017-03-22 15:27] LABS: BAND % (MANUAL) 5 % (0-6); BASOPHILS % (MANUAL) 0 % (0-2); EOSINOPHILS % (MANUAL) 0 % (0-7); LYMPHOCYTES % (MANUAL) 12 % (20-46); MONOCYTES % (MANUAL) 1 % (0-11)
[2017-03-22] MEDS ORDERED: PIPERACILLIN/TAZO 3.375 GM in NS 50 ML IV ONE (15:45)
[2017-03-22] MEDS ORDERED: PIPERACILLIN/TAZOBACTAM 3.375 GM/VIAL (ZOSYN) IV ONE (16:07)
[2017-03-22 16:29] VITALS: BP_SYST 139
[2017-03-22] MEDS ORDERED: AZIT500T3 PO (17:21)
[2017-03-22] MEDS ORDERED: MYC150 PO (17:21)
[2017-03-22] MEDS ORDERED: [UNRECOGNIZED DRUG - CODE] PO (17:21)
[2017-03-22] MEDS ORDERED: SODI325T PO (17:21)
[2017-03-22] MEDS ORDERED: PRED10TA PO (17:21)
[2017-03-22] MEDS ORDERED: [UNRECOGNIZED DRUG - OTHER] PO (17:23)
[2017-03-22] MEDS ORDERED: NACL 0.9% 1,000 ML IV SCH (18:30)
[2017-03-22 19:00] VITALS: BP_SYST 149
[2017-03-22 20:00] VITALS: BP_SYST 149
[2017-03-22] MEDS: LACTOBACILLUS RHAMNOSUS GG 1 CAP CAPSULE PO SCH (20:59)
[2017-03-22] MEDS: CARVEDILOL 25 MG TABLET (COREG) PO SCH (20:59)
[2017-03-22] MEDS: TACROLIMUS ANHYDROUS 1 MG CAPSULE (PROGRAF) PO SCH (21:00)
[2017-03-22] MEDS: ETHAMBUTOL 400 MG PO SCH (21:00)
[2017-03-22] MEDS ORDERED: SODIUM BICARBONATE 325 MG TABLET PO SCH (21:00)
[2017-03-22] MEDS: INSULIN REGULAR, HUMAN 100 UNITS/ML, 10 ML VIAL (novoLIN R) SUBCUT PRN (21:03)
[2017-03-22] MEDS ORDERED: INSULIN REGULAR, HUMAN 100 UNITS/ML, 10 ML VIAL SUBCUT ONE (21:45)
[2017-03-22 22:07] LABS: BILIRUBIN,URINE NEGATIVE (NEGATIVE); BLOOD, URINE NEGATIVE (NEGATIVE); CLARITY/URINE CLEAR (CLEAR); COLOR,URINE YELLOW (YELLOW); GLUCOSE,URINE 3+ (NEGATIVE); KETONES,URINE NEGATIVE (NEGATIVE); LEUKOCYTE ESTERASE ,URINE NEGATIVE (NEGATIVE); NITRITE, URINE NEGATIVE (NEGATIVE); PROTEIN URINE TRACE (NEGATIVE); UROBILINOGEN,URINE 0.2 (0.2-1.0)
[2017-03-22 22:16] LABS: BACTERIA,URINE FEW /HPF (None Seen); MUCUS,URINE None Seen /LPF (None Seen); RBC,URINE 0-3 /HPF (0-3); WBC,URINE NONE SEEN /HPF (0-3)
[2017-03-23 01:14] VITALS: BP_SYST 132
[2017-03-23] MEDS: INSULIN REGULAR, HUMAN 100 UNITS/ML, 10 ML VIAL (novoLIN R) SUBCUT PRN ×4 (07:02→21:41)
[2017-03-23 07:45] VITALS: BP_SYST 149
[2017-03-23] MEDS: NIFEDIPINE 30 MG TAB.ER.24 PO SCH (08:45)
[2017-03-23] MEDS: FAMOTIDINE 20 MG TABLET PO SCH (08:46)
[2017-03-23] MEDS: CHOLECALCIFEROL (VITAMIN D3) 2,000 UNIT TABLET PO SCH (08:46)
[2017-03-23] MEDS: CARVEDILOL 25 MG TABLET (COREG) PO SCH ×2 (08:46→21:37)
[2017-03-23] MEDS: ASCORBIC ACID 500 MG TABLET PO SCH (08:46)
[2017-03-23] MEDS: ETHAMBUTOL 400 MG PO SCH ×2 (08:46→14:43)
[2017-03-23] MEDS: AZITHROMYCIN 250 MG TABLET PO SCH (08:46)
[2017-03-23] MEDS: LACTOBACILLUS RHAMNOSUS GG 1 CAP CAPSULE PO SCH ×2 (08:47→21:36)
[2017-03-23] MEDS: TACROLIMUS ANHYDROUS 1 MG CAPSULE (PROGRAF) PO SCH ×2 (08:47→16:45)
[2017-03-23] MEDS: CALCITRIOL 0.25 MCG CAPSULE PO SCH (09:14)
[2017-03-23 10:30] VITALS: BP_SYST 142
[2017-03-23 11:47] LABS: HEMOGLOBIN 9.5 g/dL (14.0-18.0); LYMPHOCYTES # (AUTO) 0.3 K/uL (1.0-5.5); MONOCYTES # (AUTO) 0.2 K/uL (0.0-1.0); NEUTROPHILS # (AUTO) 1.5 K/uL (1.8-7.7)
[2017-03-23 11:49] LABS: CALCIUM 8.4 mg/dL (8.4-11.0); CREATININE 6.6 mg/dL (0.55-1.30); POTASSIUM 4.3 mmol/L (3.5-5.1)
[2017-03-23 11:55] LABS: BASOPHILS % (AUTO) 2.4 % (0.0-2.0); EOSINOPHILS % (AUTO) 1.1 % (0.0-4.0); HEMATOCRIT 28.4 % (36-54); LYMPHOCYTES % (AUTO) 15.2 % (20.5-51.5); MEAN CORPUSCULAR HEMOGLOBIN 28 pg (27-31); MEAN CORPUSCULAR HGB CONC 34 % (32-36); MEAN CORPUSCULAR VOLUME 84 fL (79.0-98.0); MONOCYTES % (AUTO) 9.7 % (1.7-9.3); NEUTROPHILS % (AUTO) 71.6 % (40.0-70.0); RED BLOOD CELL COUNT(AUTO) 3.36 MIL/uL (4.2-6.2); RED CELL DISTRIBUTION WIDTH 15.2 % (9.0-15.0)
[2017-03-23 12:08] LABS: IRON (SERUM) 61 mcg/dL (59-158); TOTAL IRON BIND. CAPACITY 113 ug/dL (250-450)
[2017-03-23 12:18] VITALS: BP_SYST 115
[2017-03-23 13:09] LABS: RETICULOCYTE COUNT 0.7 % (0.5-1.5)
[2017-03-23 13:20] LABS: PLATELET COUNT (AUTO) 62 K/uL (130-430)
[2017-03-23 16:53] VITALS: BP_SYST 130
[2017-03-23 20:05] VITALS: BP_SYST 127
[2017-03-24 00:28] VITALS: BP_SYST 121
[2017-03-24 03:12] VITALS: BP_SYST 119
[2017-03-24 06:55] LABS: BASOPHILS % (AUTO) 0.3 % (0.0-2.0); EOSINOPHILS % (AUTO) 0.2 % (0.0-4.0); HEMATOCRIT 31.2 % (36-54); HEMOGLOBIN 10.5 g/dL (14.0-18.0); LYMPHOCYTES # (AUTO) 0.7 K/uL (1.0-5.5); LYMPHOCYTES % (AUTO) 18.6 % (20.5-51.5); MEAN CORPUSCULAR HEMOGLOBIN 29 pg (27-31); MEAN CORPUSCULAR HGB CONC 34 % (32-36); MEAN CORPUSCULAR VOLUME 85 fL (79.0-98.0); MONOCYTES # (AUTO) 0.4 K/uL (0.0-1.0); MONOCYTES % (AUTO) 11.4 % (1.7-9.3); NEUTROPHILS # (AUTO) 2.4 K/uL (1.8-7.7); NEUTROPHILS % (AUTO) 69.5 % (40.0-70.0); RED BLOOD CELL COUNT(AUTO) 3.67 MIL/uL (4.2-6.2); RED CELL DISTRIBUTION WIDTH 15.1 % (9.0-15.0); WHITE BLOOD COUNT (AUTO) 3.5 K/uL (4.8-10.8)
[2017-03-24 07:40] LABS: PLATELET COUNT (AUTO) 69 K/uL (130-430)
[2017-03-24 08:00] VITALS: BP_SYST 125
[2017-03-24] MEDS: TACROLIMUS ANHYDROUS 1 MG CAPSULE (PROGRAF) PO SCH ×2 (09:00→17:02)
[2017-03-24] MEDS: LACTOBACILLUS RHAMNOSUS GG 1 CAP CAPSULE PO SCH ×2 (09:01→21:45)
[2017-03-24] MEDS: NIFEDIPINE 30 MG TAB.ER.24 PO SCH (09:01)
[2017-03-24] MEDS: ETHAMBUTOL 400 MG PO SCH ×3 (09:02→21:45)
[2017-03-24] MEDS: AZITHROMYCIN 250 MG TABLET PO SCH (09:02)
[2017-03-24] MEDS: FAMOTIDINE 20 MG TABLET PO SCH (09:02)
[2017-03-24] MEDS: CHOLECALCIFEROL (VITAMIN D3) 2,000 UNIT TABLET PO SCH (09:02)
[2017-03-24] MEDS: CARVEDILOL 25 MG TABLET (COREG) PO SCH ×2 (09:02→21:46)
[2017-03-24] MEDS: CALCITRIOL 0.25 MCG CAPSULE PO SCH (09:05)
[2017-03-24] MEDS: ASCORBIC ACID 500 MG TABLET PO SCH (09:05)
[2017-03-24] MEDS: INSULIN REGULAR, HUMAN 100 UNITS/ML, 10 ML VIAL (novoLIN R) SUBCUT PRN (11:42)
[2017-03-24 11:43] VITALS: BP_SYST 118
[2017-03-24] MEDS ORDERED: SODIUM BICARBONATE 650 MG TABLET PO ONE (12:15)
[2017-03-24 16:23] VITALS: BP_SYST 118
[2017-03-24 20:00] VITALS: BP_SYST 134
[2017-03-24] MEDS: SODIUM BICARBONATE 650 MG TABLET PO SCH (21:45)
[2017-03-25 03:09] VITALS: BP_SYST 119
[2017-03-25 07:11] LABS: BASOPHILS % (AUTO) 0.5 % (0.0-2.0); EOSINOPHILS % (AUTO) 0.6 % (0.0-4.0); HEMATOCRIT 29.5 % (36-54); HEMOGLOBIN 9.7 g/dL (14.0-18.0); LYMPHOCYTES # (AUTO) 0.5 K/uL (1.0-5.5); LYMPHOCYTES % (AUTO) 18.3 % (20.5-51.5); MEAN CORPUSCULAR HEMOGLOBIN 28 pg (27-31); MEAN CORPUSCULAR HGB CONC 33 % (32-36); MEAN CORPUSCULAR VOLUME 86 fL (79.0-98.0); MONOCYTES # (AUTO) 0.4 K/uL (0.0-1.0); MONOCYTES % (AUTO) 13.1 % (1.7-9.3); NEUTROPHILS # (AUTO) 1.8 K/uL (1.8-7.7); NEUTROPHILS % (AUTO) 67.5 % (40.0-70.0); RED BLOOD CELL COUNT(AUTO) 3.43 MIL/uL (4.2-6.2); WHITE BLOOD COUNT (AUTO) 2.7 K/uL (4.8-10.8)
[2017-03-25 07:21] LABS: ALBUMIN 2.2 g/dL (3.4-4.8); CALCIUM 8.9 mg/dL (8.4-11.0); CREATININE 6.95 mg/dL (0.55-1.30); POTASSIUM 5.1 mmol/L (3.5-5.1); TOTAL BILIRUBIN 0.4 mg/dL (0.0-1.0); TOTAL PROTEIN, SERUM 7.1 g/dL (6.4-8.3)
[2017-03-25 08:02] VITALS: BP_SYST 140
[2017-03-25 08:13] LABS: PLATELET COUNT (AUTO) 58 K/uL (130-430)
[2017-03-25] MEDS: ETHAMBUTOL 400 MG PO SCH ×3 (08:20→21:54)
[2017-03-25] MEDS: TACROLIMUS ANHYDROUS 1 MG CAPSULE (PROGRAF) PO SCH ×2 (08:31→17:40)
[2017-03-25] MEDS: SODIUM BICARBONATE 650 MG TABLET PO SCH ×2 (08:32→21:55)
[2017-03-25] MEDS: CHOLECALCIFEROL (VITAMIN D3) 2,000 UNIT TABLET PO SCH (08:32)
[2017-03-25] MEDS: ASCORBIC ACID 500 MG TABLET PO SCH (08:33)
[2017-03-25] MEDS: AZITHROMYCIN 250 MG TABLET PO SCH (08:33)
[2017-03-25] MEDS: NIFEDIPINE 30 MG TAB.ER.24 PO SCH (08:33)
[2017-03-25] MEDS: FAMOTIDINE 20 MG TABLET PO SCH (08:33)
[2017-03-25] MEDS: LACTOBACILLUS RHAMNOSUS GG 1 CAP CAPSULE PO SCH ×2 (08:33→21:54)
[2017-03-25] MEDS: CARVEDILOL 25 MG TABLET (COREG) PO SCH ×2 (08:34→21:53)
[2017-03-25] MEDS: CALCITRIOL 0.25 MCG CAPSULE PO SCH (08:35)
[2017-03-25] MEDS: INSULIN REGULAR, HUMAN 100 UNITS/ML, 10 ML VIAL (novoLIN R) SUBCUT PRN ×3 (11:02→21:52)
[2017-03-25 12:00] VITALS: BP_SYST 113
[2017-03-25 17:09] VITALS: BP_SYST 110
[2017-03-25 19:00] VITALS: BP_SYST 117
[2017-03-25 20:00] VITALS: BP_SYST 117
[2017-03-25] MEDS: MEGESTROL ACETATE 400 MG/10 ML UDC PO SCH (21:54)
[2017-03-26] VITALS (7 sets, daily range): BP systolic 101–122
[2017-03-26 08:20] LABS: HEMATOCRIT 28.7 % (36-54); HEMOGLOBIN 9.3 g/dL (14.0-18.0); MEAN CORPUSCULAR HEMOGLOBIN 28 pg (27-31); MEAN CORPUSCULAR HGB CONC 33 % (32-36); MEAN CORPUSCULAR VOLUME 85 fL (79.0-98.0); PLATELET COUNT (AUTO) 83 K/uL (130-430); RED BLOOD CELL COUNT(AUTO) 3.38 MIL/uL (4.2-6.2); RED CELL DISTRIBUTION WIDTH 14.7 % (9.0-15.0); WHITE BLOOD COUNT (AUTO) 2.5 K/uL (4.8-10.8)
[2017-03-26] MEDS: CHOLECALCIFEROL (VITAMIN D3) 2,000 UNIT TABLET PO SCH (09:20)
[2017-03-26] MEDS: CARVEDILOL 25 MG TABLET (COREG) PO SCH ×2 (09:21→21:00)
[2017-03-26] MEDS: NIFEDIPINE 30 MG TAB.ER.24 PO SCH (09:21)
[2017-03-26] MEDS: ASCORBIC ACID 500 MG TABLET PO SCH (09:21)
[2017-03-26] MEDS: AZITHROMYCIN 250 MG TABLET PO SCH (09:21)
[2017-03-26] MEDS: SODIUM BICARBONATE 650 MG TABLET PO SCH ×2 (09:21→21:10)
[2017-03-26] MEDS: ETHAMBUTOL 400 MG PO SCH ×3 (09:22→21:09)
[2017-03-26] MEDS: LACTOBACILLUS RHAMNOSUS GG 1 CAP CAPSULE PO SCH ×2 (09:22→21:09)
[2017-03-26] MEDS: MEGESTROL ACETATE 400 MG/10 ML UDC PO SCH ×2 (09:22→21:09)
[2017-03-26] MEDS: FAMOTIDINE 20 MG TABLET PO SCH (09:22)
[2017-03-26] MEDS: CALCITRIOL 0.25 MCG CAPSULE PO SCH (09:22)
[2017-03-26] MEDS: TACROLIMUS ANHYDROUS 1 MG CAPSULE (PROGRAF) PO SCH ×2 (09:24→16:39)
[2017-03-26 10:08] LABS: BAND % (MANUAL) 15 % (0-6); BASOPHILS % (MANUAL) 0 % (0-2); EOSINOPHILS % (MANUAL) 3 % (0-7); LYMPHOCYTES % (MANUAL) 23 % (20-46); MONOCYTES % (MANUAL) 7 % (0-11)
[2017-03-26] MEDS: INSULIN REGULAR, HUMAN 100 UNITS/ML, 10 ML VIAL (novoLIN R) SUBCUT PRN ×3 (12:22→21:16)
[2017-03-27 00:10] VITALS: BP_SYST 130
[2017-03-27 03:23] VITALS: BP_SYST 129
[2017-03-27] MEDS: INSULIN REGULAR, HUMAN 100 UNITS/ML, 10 ML VIAL (novoLIN R) SUBCUT PRN ×3 (06:49→21:16)
[2017-03-27 07:19] LABS: LYMPHOCYTES # (AUTO) 0.4 K/uL (1.0-5.5); MEAN CORPUSCULAR VOLUME 86 fL (79.0-98.0); MONOCYTES # (AUTO) 0.4 K/uL (0.0-1.0); NEUTROPHILS # (AUTO) 1.7 K/uL (1.8-7.7); NEUTROPHILS % (AUTO) 65.3 % (40.0-70.0); WHITE BLOOD COUNT (AUTO) 2.5 K/uL (4.8-10.8)
[2017-03-27 07:34] LABS: BASOPHILS % (AUTO) 0.8 % (0.0-2.0); EOSINOPHILS % (AUTO) 0.9 % (0.0-4.0); HEMATOCRIT 27.6 % (36-54); LYMPHOCYTES % (AUTO) 16.7 % (20.5-51.5); MEAN CORPUSCULAR HEMOGLOBIN 28 pg (27-31); MEAN CORPUSCULAR HGB CONC 33 % (32-36); MONOCYTES % (AUTO) 16.3 % (1.7-9.3); RED BLOOD CELL COUNT(AUTO) 3.22 MIL/uL (4.2-6.2); RED CELL DISTRIBUTION WIDTH 14.3 % (9.0-15.0)
[2017-03-27 07:42] LABS: CALCIUM 9.2 mg/dL (8.4-11.0); POTASSIUM 5.4 mmol/L (3.5-5.1); TOTAL BILIRUBIN 0.3 mg/dL (0.0-1.0); TOTAL PROTEIN, SERUM 6.9 g/dL (6.4-8.3)
[2017-03-27 08:12] VITALS: BP_SYST 148
[2017-03-27 08:13] LABS: CREATININE 8.38 mg/dL (0.55-1.30)
[2017-03-27 08:30] LABS: PLATELET COUNT (AUTO) 87 K/uL (130-430)
[2017-03-27] MEDS: MEGESTROL ACETATE 400 MG/10 ML UDC PO SCH ×2 (10:03→21:12)
[2017-03-27] MEDS: AZITHROMYCIN 250 MG TABLET PO SCH (10:04)
[2017-03-27] MEDS: SODIUM BICARBONATE 650 MG TABLET PO SCH ×2 (10:04→21:12)
[2017-03-27] MEDS: TACROLIMUS ANHYDROUS 1 MG CAPSULE (PROGRAF) PO SCH ×2 (10:04→17:44)
[2017-03-27] MEDS: ETHAMBUTOL 400 MG PO SCH ×3 (10:04→21:12)
[2017-03-27] MEDS: ASCORBIC ACID 500 MG TABLET PO SCH (10:04)
[2017-03-27] MEDS: CALCITRIOL 0.25 MCG CAPSULE PO SCH (10:04)
[2017-03-27] MEDS: LACTOBACILLUS RHAMNOSUS GG 1 CAP CAPSULE PO SCH ×2 (10:04→21:12)
[2017-03-27] MEDS: FAMOTIDINE 20 MG TABLET PO SCH (10:05)
[2017-03-27] MEDS: CHOLECALCIFEROL (VITAMIN D3) 2,000 UNIT TABLET PO SCH (10:05)
[2017-03-27] MEDS: NIFEDIPINE 30 MG TAB.ER.24 PO SCH (10:06)
[2017-03-27] MEDS: CARVEDILOL 25 MG TABLET (COREG) PO SCH ×2 (10:06→21:00)
[2017-03-27 12:00] VITALS: BP_SYST 149
[2017-03-27 16:37] VITALS: BP_SYST 119
[2017-03-27 19:30] VITALS: BP_SYST 104
[2017-03-28 00:42] VITALS: BP_SYST 112
[2017-03-28 03:49] VITALS: BP_SYST 115
[2017-03-28 05:17] LABS: FOLATE (FOLIC ACID) 6.3 ng/mL (>3.0)
[2017-03-28 06:35] LABS: HEMATOCRIT 27.8 % (36-54); HEMOGLOBIN 9.5 g/dL (14.0-18.0); MEAN CORPUSCULAR HEMOGLOBIN 29 pg (27-31); MEAN CORPUSCULAR HGB CONC 34 % (32-36); MEAN CORPUSCULAR VOLUME 85 fL (79.0-98.0); PLATELET COUNT (AUTO) 131 K/uL (130-430); RED BLOOD CELL COUNT(AUTO) 3.29 MIL/uL (4.2-6.2); RED CELL DISTRIBUTION WIDTH 14.7 % (9.0-15.0); WHITE BLOOD COUNT (AUTO) 2.4 K/uL (4.8-10.8)
[2017-03-28 06:41] LABS: CALCIUM 9.1 mg/dL (8.4-11.0); POTASSIUM 5.4 mmol/L (3.5-5.1)
[2017-03-28 07:07] LABS: CREATININE 8.47 mg/dL (0.55-1.30)
[2017-03-28 08:00] LABS: BAND % (MANUAL) 11 % (0-6); BASOPHILS % (MANUAL) 0 % (0-2); EOSINOPHILS % (MANUAL) 0 % (0-7); LYMPHOCYTES % (MANUAL) 27 % (20-46); MONOCYTES % (MANUAL) 9 % (0-11)
[2017-03-28 08:08] VITALS: BP_SYST 119
[2017-03-28] MEDS: MEGESTROL ACETATE 400 MG/10 ML UDC PO SCH (08:09)
[2017-03-28] MEDS: ETHAMBUTOL 400 MG PO SCH ×2 (08:10→14:09)
[2017-03-28] MEDS: LACTOBACILLUS RHAMNOSUS GG 1 CAP CAPSULE PO SCH (08:10)
[2017-03-28] MEDS: SODIUM BICARBONATE 650 MG TABLET PO SCH (08:10)
[2017-03-28] MEDS: TACROLIMUS ANHYDROUS 1 MG CAPSULE (PROGRAF) PO SCH (08:10)
[2017-03-28] MEDS: CHOLECALCIFEROL (VITAMIN D3) 2,000 UNIT TABLET PO SCH (08:10)
[2017-03-28] MEDS: NIFEDIPINE 30 MG TAB.ER.24 PO SCH (08:11)
[2017-03-28] MEDS: FAMOTIDINE 20 MG TABLET PO SCH (08:11)
[2017-03-28] MEDS: AZITHROMYCIN 250 MG TABLET PO SCH (08:11)
[2017-03-28] MEDS: ASCORBIC ACID 500 MG TABLET PO SCH (08:11)
[2017-03-28] MEDS: CARVEDILOL 25 MG TABLET (COREG) PO SCH (08:12)
[2017-03-28] MEDS ORDERED: SODIUM POLYSTYRENE SULFONATE 15 GM/60 ML UDBTL PO ONE (08:15)
[2017-03-28] MEDS: CALCITRIOL 0.25 MCG CAPSULE PO SCH (08:22)
[2017-03-28] MEDS ORDERED: ACETAMINOPHEN 325 MG TABLET PO ONE (10:00)
[2017-03-28] MEDS ORDERED: KETOROLAC TROMETHAMINE 10 MG TABLET (TORADOL) PO ONE (12:00)
[2017-03-28 12:13] VITALS: BP_SYST 100
[2017-03-28 13:34] LABS: BILIRUBIN,URINE NEGATIVE (NEGATIVE); BLOOD, URINE NEGATIVE (NEGATIVE); CLARITY/URINE CLEAR (CLEAR); COLOR,URINE YELLOW (YELLOW); GLUCOSE,URINE NEGATIVE (NEGATIVE); KETONES,URINE NEGATIVE (NEGATIVE); LEUKOCYTE ESTERASE ,URINE NEGATIVE (NEGATIVE); NITRITE, URINE NEGATIVE (NEGATIVE); PROTEIN URINE 2+ (NEGATIVE); UROBILINOGEN,URINE 0.2 (0.2-1.0)
[2017-03-28 13:41] LABS: BACTERIA,URINE FEW /HPF (None Seen); MUCUS,URINE None Seen /LPF (None Seen); RBC,URINE 0-3 /HPF (0-3); WBC,URINE 0-3 /HPF (0-3)
[2017-03-28 15:57] VITALS: BP_SYST 105
[2017-03-28 16:46] VITALS: BP_SYST 106
== END 2017-03-28 16:30 | disposition home health service (06) | DRG 867 ==
LOC: SED 14:13 → STU 16:10 → SMU 03-25 15:13
PROVIDERS: ADMIT Internal Medicine; ATTEND Internal Medicine
PROC: 30233N1 Transfusion of Nonautologous Red Blood Cells into Peripheral Vein, Percutaneous Approach (ICD-10-PCS; principal; 2017-03-23)
DX: A31.2 Disseminated mycobacterium avium-intracellulare complex (DMAC) (principal); A41.9 Sepsis, unspecified organism; E43 Unspecified severe protein-calorie malnutrition; N18.6 End stage renal disease; N17.9 Acute kidney failure, unspecified; D61.818 Other pancytopenia; T86.11 Kidney transplant rejection; E87.5 Hyperkalemia; I12.9 Hypertensive chronic kidney disease with stage 1 through stage 4 chronic kidney disease, or unspecified chronic kidney disease; E11.22 Type 2 diabetes mellitus with diabetic chronic kidney disease; D89.9 Disorder involving the immune mechanism, unspecified; E11.51 Type 2 diabetes mellitus with diabetic peripheral angiopathy without gangrene; D63.8 Anemia in other chronic diseases classified elsewhere; Y83.0 Surgical operation with transplant of whole organ as the cause of abnormal reaction of the patient, or of later complication, without mention of misadventure at the time of the procedure; Y92.89 Other specified places as the place of occurrence of the external cause; Y93.89 Activity, other specified; Y99.8 Other external cause status; Z68.22 Body mass index [BMI] 22.0-22.9, adult; Z87.891 Personal history of nicotine dependence; Z79.899 Other long term (current) drug therapy; Z79.2 Long term (current) use of antibiotics; Z79.52 Long term (current) use of systemic steroids; Z86.718 Personal history of other venous thrombosis and embolism
CPT/HCPCS: 36415; 71010; 80048; 80053; 81000-TC; 82150-TC; 82272; 82607; 82728; 82746; 82962; 83540-TC; 83550-TC; 83605; 83690-TC; 84484; 85007; 85025; 85027; 85044-TC; 85610-TC; 85730-TC; 86886; 86900; 86901; 86920; 86945-TC; 87040-TC; 87230-TC; 93005; 96365; 96379; 97110-GP; 97116-GP; 97530-GP; 99285; J1815; J2543; J7040; J7507; P9021; Q0144

== ENCOUNTER 2017-03-29 10:57 | Inpatient (IN) | payer BC ==
[~2017-03-29] VITALS: Ht 180.3 cm; Wt 66.5 kg
[~2017-03-29 10:57] MED LIST changes: -ASPI81TA2 PO; +AZIT500T3 PO; -METR500T PO; -MULT PO; +MYC150 PO; -MYCO500T PO; +NIFE-2 PO; -OMEG300C3 PO; +PRED10TA PO; +SODI325T PO; -VALS160T2 PO; -WARF1TAB2 PO; +[UNRECOGNIZED DRUG - CODE] PO; +[UNRECOGNIZED DRUG - OTHER] PO
[2017-03-29 11:00] VITALS: BP_SYST 126
[2017-03-29] MEDS ORDERED: NACL 0.9% 1,000 ML IV SCH (11:01)
[2017-03-29] MEDS ORDERED: ACETAMINOPHEN 325 MG TABLET PO ONE (11:15)
[2017-03-29] MEDS ORDERED: PIPERACILLIN/TAZO 3.38 GM in D5W 50 ML IV ONE (11:15)
[2017-03-29] MEDS ORDERED: VANCOMYCIN HCL 1,000 MG in D5W 250 ML IV ONE (11:15)
[2017-03-29] MEDS ORDERED: VANCOMYCIN HCL 1000 MG/VIAL IV ONE (11:17)
[2017-03-29] MEDS ORDERED: PIPERACILLIN/TAZOBACTAM 3.375 GM/VIAL (ZOSYN) IV ONE (11:18)
[2017-03-29 11:37] LABS: HEMATOCRIT 26.5 % (36-54); HEMOGLOBIN 8.9 g/dL (14.0-18.0); MEAN CORPUSCULAR HEMOGLOBIN 28 pg (27-31); MEAN CORPUSCULAR HGB CONC 33 % (32-36); MEAN CORPUSCULAR VOLUME 85 fL (79.0-98.0); PLATELET COUNT (AUTO) 106 K/uL (130-430); RED BLOOD CELL COUNT(AUTO) 3.13 MIL/uL (4.2-6.2); RED CELL DISTRIBUTION WIDTH 14.6 % (9.0-15.0)
[2017-03-29 11:39] LABS: POTASSIUM 5.7 mmol/L (3.5-5.1)
[2017-03-29 11:40] LABS: WHITE BLOOD COUNT (AUTO) 1.7 K/uL (4.8-10.8)
[2017-03-29 11:41] LABS: INR 1.2 (0.80-1.20); PROTHROMBIN TIME 13.5 SECS (9.5-12.5)
[2017-03-29 11:44] LABS: CREATININE 9.98 mg/dL (0.55-1.30)
[2017-03-29 11:47] LABS: TOTAL BILIRUBIN 0.5 mg/dL (0.0-1.0)
[2017-03-29 11:48] LABS: TOTAL PROTEIN, SERUM 6.8 g/dL (6.4-8.3)
[2017-03-29 12:05] LABS: BASOPHILS % (MANUAL) 0 % (0-2); EOSINOPHILS % (MANUAL) 0 % (0-7); LYMPHOCYTES % (MANUAL) 26 % (20-46); MONOCYTES % (MANUAL) 7 % (0-11)
[2017-03-29 12:27] LABS: BILIRUBIN,URINE NEGATIVE (NEGATIVE); BLOOD, URINE NEGATIVE (NEGATIVE); CLARITY/URINE CLEAR (CLEAR); COLOR,URINE YELLOW (YELLOW); GLUCOSE,URINE NEGATIVE (NEGATIVE); KETONES,URINE NEGATIVE (NEGATIVE); LEUKOCYTE ESTERASE ,URINE NEGATIVE (NEGATIVE); NITRITE, URINE NEGATIVE (NEGATIVE); PROTEIN URINE 2+ (NEGATIVE); UROBILINOGEN,URINE 0.2 (0.2-1.0)
[2017-03-29] MEDS ORDERED: SODIUM POLYSTYRENE SULFONATE 15 GM/60 ML UDBTL RC ONE (12:30)
[2017-03-29] MEDS ORDERED: CALCIUM GLUCONATE 1 GM/10 ML VIAL IVP ONE (12:30)
[2017-03-29 12:31] LABS: BACTERIA,URINE FEW /HPF (None Seen); RBC,URINE 0-3 /HPF (0-3); URINE AMORPHOUS URATE 1+ /HPF (None Seen); WBC,URINE 0-3 /HPF (0-3)
[2017-03-29 13:35] VITALS: BP_SYST 101
[2017-03-29] MEDS: ETHAMBUTOL 400 MG PO SCH ×2 (15:38→22:04)
[2017-03-29 16:43] VITALS: BP_SYST 115
[2017-03-29] MEDS ORDERED: NS 500 ML IV ONE (17:00)
[2017-03-29] MEDS: NACL 0.9% 1,000 ML IV SCH (18:11)
[2017-03-29] MEDS: ACETAMINOPHEN 325 MG TABLET PO PRN (18:17)
[2017-03-29] MEDS: MEROPENEM 500 MG in NS 50 ML IV SCH (18:22)
[2017-03-29] MEDS: MICAFUNGIN SODIUM 100 MG in NS 100 ML IV SCH (19:27)
[2017-03-29 20:50] VITALS: BP_SYST 125
[2017-03-29 21:00] VITALS: BP_SYST 125
[2017-03-29] MEDS ORDERED: MAGNESIUM PO SCH (21:00)
[2017-03-29] MEDS ORDERED: CHOLECALCIFEROL 5000 UNIT PO SCH (21:00)
[2017-03-29] MEDS ORDERED: PROTEIN PO SCH (21:00)
[2017-03-29] MEDS: CARVEDILOL 25 MG TABLET (COREG) PO SCH (22:04)
[2017-03-29] MEDS: SODIUM BICARBONATE 325 MG TABLET PO SCH (22:05)
[2017-03-29] MEDS: TACROLIMUS ANHYDROUS 1 MG CAPSULE (PROGRAF) PO SCH (22:05)
[2017-03-30] VITALS (8 sets, daily range): BP systolic 112–153
[2017-03-30] MEDS: NACL 0.9% 1,000 ML IV SCH ×2 (00:24→08:54)
[2017-03-30 05:19] LABS: HEPATITIS A AB, IgM Negative (Negative); HEPATITIS B CORE AB, IgM Negative (Negative); HEPATITIS B SURFACE AG Negative (Negative)
[2017-03-30] MEDS: ACETAMINOPHEN 325 MG TABLET PO PRN (05:27)
[2017-03-30] MEDS: MEROPENEM 500 MG in NS 50 ML IV SCH ×2 (05:28→16:44)
[2017-03-30] MEDS: INSULIN REGULAR, HUMAN 100 UNITS/ML, 10 ML VIAL (novoLIN R) SUBCUT PRN ×4 (06:36→21:36)
[2017-03-30 07:07] LABS: BASOPHILS % (AUTO) 0.3 % (0.0-2.0); EOSINOPHILS % (AUTO) 0.7 % (0.0-4.0); HEMATOCRIT 24.7 % (36-54); HEMOGLOBIN 8.2 g/dL (14.0-18.0); LYMPHOCYTES # (AUTO) 0.1 K/uL (1.0-5.5); LYMPHOCYTES % (AUTO) 12.1 % (20.5-51.5); MEAN CORPUSCULAR HEMOGLOBIN 28 pg (27-31); MEAN CORPUSCULAR HGB CONC 33 % (32-36); MEAN CORPUSCULAR VOLUME 85 fL (79.0-98.0); MONOCYTES # (AUTO) 0.1 K/uL (0.0-1.0); MONOCYTES % (AUTO) 8.3 % (1.7-9.3); NEUTROPHILS % (AUTO) 78.6 % (40.0-70.0); PLATELET COUNT (AUTO) 74 K/uL (130-430); RED BLOOD CELL COUNT(AUTO) 2.92 MIL/uL (4.2-6.2); RED CELL DISTRIBUTION WIDTH 14.9 % (9.0-15.0)
[2017-03-30 07:18] LABS: CALCIUM 8.6 mg/dL (8.4-11.0); PHOSPHORUS 8.6 mg/dL (2.7-4.5); POTASSIUM 5.3 mmol/L (3.5-5.1)
[2017-03-30 07:23] LABS: CREATININE 9.85 mg/dL (0.55-1.30)
[2017-03-30 07:25] LABS: WHITE BLOOD COUNT (AUTO) 1.2 K/uL (4.8-10.8)
[2017-03-30 07:34] LABS: INR 1.3 (0.80-1.20)
[2017-03-30] MEDS: LACTOBACILLUS RHAMNOSUS GG 1 CAP CAPSULE PO SCH (08:51)
[2017-03-30] MEDS: PREDNISONE 10 MG TABLET PO SCH (08:51)
[2017-03-30] MEDS: FAMOTIDINE 20 MG TABLET PO SCH (08:51)
[2017-03-30] MEDS: ASCORBIC ACID 500 MG TABLET PO SCH (08:51)
[2017-03-30] MEDS: AZITHROMYCIN 250 MG TABLET PO SCH (08:51)
[2017-03-30] MEDS: TACROLIMUS ANHYDROUS 1 MG CAPSULE (PROGRAF) PO SCH (08:52)
[2017-03-30] MEDS: ETHAMBUTOL 400 MG PO SCH ×3 (08:52→21:24)
[2017-03-30] MEDS: CALCITRIOL 0.25 MCG CAPSULE PO SCH (08:52)
[2017-03-30] MEDS: SODIUM BICARBONATE 325 MG TABLET PO SCH ×2 (08:52→21:24)
[2017-03-30] MEDS: NIFEDIPINE 30 MG TAB.ER.24 PO SCH (08:53)
[2017-03-30] MEDS: CARVEDILOL 25 MG TABLET (COREG) PO SCH ×2 (08:54→21:25)
[2017-03-30] MEDS ORDERED: [UNRECOGNIZED DRUG - OTHER] PO SCH (09:00)
[2017-03-30] MEDS ORDERED: NON-FORMULARY MEDICATION (Ubidecarenone (Coq10) 100 MG) PO SCH (09:00)
[2017-03-30] MEDS ORDERED: NON-FORMULARY MEDICATION (Lactobacillus Rhamnosus Gg (Probiotic) 1 EACH) PO SCH (09:00)
[2017-03-30] MEDS ORDERED: CALCIUM CARBONATE/VITAMIN D3 1 TAB TABLET PO SCH (09:00)
[2017-03-30] MEDS ORDERED: HEPARIN SODIUM,PORCINE 5000 UNITS/ML VIAL ONE ×2 (10:58→11:20)
[2017-03-30] MEDS: SEVELAMER HCL 800 MG TABLET PO SCH ×2 (12:00→17:29)
[2017-03-30] MEDS: EPOETIN ALFA 3,000 UNITS/ML VIAL SUBCUT SCH ×2 (16:45→19:23)
[2017-03-30] MEDS: FILGRASTIM 480 MCG/VIAL SUBCUT SCH ×2 (16:45→19:24)
[2017-03-30] MEDS: MICAFUNGIN SODIUM 100 MG in NS 100 ML IV SCH (19:24)
[2017-03-31 04:27] VITALS: BP_SYST 116
[2017-03-31] MEDS: MEROPENEM 500 MG in NS 50 ML IV SCH ×2 (05:40→17:24)
[2017-03-31 07:07] LABS: BASOPHILS % (AUTO) 0.3 % (0.0-2.0); EOSINOPHILS % (AUTO) 0.2 % (0.0-4.0); HEMOGLOBIN 8.3 g/dL (14.0-18.0); LYMPHOCYTES # (AUTO) 0.2 K/uL (1.0-5.5); LYMPHOCYTES % (AUTO) 8.7 % (20.5-51.5); MEAN CORPUSCULAR HEMOGLOBIN 28 pg (27-31); MEAN CORPUSCULAR HGB CONC 33 % (32-36); MEAN CORPUSCULAR VOLUME 85 fL (79.0-98.0); MONOCYTES # (AUTO) 0.1 K/uL (0.0-1.0); MONOCYTES % (AUTO) 4.6 % (1.7-9.3); NEUTROPHILS # (AUTO) 1.7 K/uL (1.8-7.7); NEUTROPHILS % (AUTO) 86.2 % (40.0-70.0); PLATELET COUNT (AUTO) 80 K/uL (130-430); RED BLOOD CELL COUNT(AUTO) 2.94 MIL/uL (4.2-6.2)
[2017-03-31 07:14] LABS: CALCIUM 8.8 mg/dL (8.4-11.0); CREATININE 5.83 mg/dL (0.55-1.30); POTASSIUM 3.7 mmol/L (3.5-5.1)
[2017-03-31 08:00] VITALS: BP_SYST 129
[2017-03-31] MEDS: CALCITRIOL 0.25 MCG CAPSULE PO SCH (08:09)
[2017-03-31] MEDS: LACTOBACILLUS RHAMNOSUS GG 1 CAP CAPSULE PO SCH (08:09)
[2017-03-31] MEDS: ETHAMBUTOL 400 MG PO SCH ×3 (08:09→22:47)
[2017-03-31] MEDS: AZITHROMYCIN 250 MG TABLET PO SCH (08:10)
[2017-03-31] MEDS: PREDNISONE 10 MG TABLET PO SCH (08:10)
[2017-03-31] MEDS: SEVELAMER HCL 800 MG TABLET PO SCH ×3 (08:10→17:22)
[2017-03-31] MEDS: FAMOTIDINE 20 MG TABLET PO SCH (08:10)
[2017-03-31] MEDS: ASCORBIC ACID 500 MG TABLET PO SCH (08:10)
[2017-03-31] MEDS: NIFEDIPINE 30 MG TAB.ER.24 PO SCH (08:10)
[2017-03-31] MEDS: SODIUM BICARBONATE 325 MG TABLET PO SCH ×2 (08:11→22:47)
[2017-03-31] MEDS: ACETAMINOPHEN 325 MG TABLET PO PRN (08:11)
[2017-03-31] MEDS: CARVEDILOL 25 MG TABLET (COREG) PO SCH ×2 (08:12→22:48)
[2017-03-31] MEDS: INSULIN REGULAR, HUMAN 100 UNITS/ML, 10 ML VIAL (novoLIN R) SUBCUT PRN ×3 (11:36→22:55)
[2017-03-31 12:34] VITALS: BP_SYST 116
[2017-03-31 16:12] VITALS: BP_SYST 113
[2017-03-31] MEDS: FILGRASTIM 480 MCG/VIAL SUBCUT SCH (17:23)
[2017-03-31] MEDS: MICAFUNGIN SODIUM 100 MG in NS 100 ML IV SCH (18:11)
[2017-03-31 20:00] VITALS: BP_SYST 126
[2017-04-01 00:24] VITALS: BP_SYST 125
[2017-04-01] MEDS ORDERED: DIPHENHYDRAMINE HCL 50 MG CAPSULE PO ONE (03:00)
[2017-04-01 04:10] VITALS: BP_SYST 134
[2017-04-01] MEDS: ACETAMINOPHEN 325 MG TABLET PO PRN ×2 (04:11→11:06)
[2017-04-01] MEDS: INSULIN REGULAR, HUMAN 100 UNITS/ML, 10 ML VIAL (novoLIN R) SUBCUT PRN ×2 (06:13→21:49)
[2017-04-01 07:04] LABS: HEMATOCRIT 24.7 % (36-54); HEMOGLOBIN 8.2 g/dL (14.0-18.0); MEAN CORPUSCULAR HEMOGLOBIN 28 pg (27-31); MEAN CORPUSCULAR HGB CONC 33 % (32-36); MEAN CORPUSCULAR VOLUME 85 fL (79.0-98.0); PLATELET COUNT (AUTO) 68 K/uL (130-430); RED BLOOD CELL COUNT(AUTO) 2.92 MIL/uL (4.2-6.2); RED CELL DISTRIBUTION WIDTH 14.7 % (9.0-15.0)
[2017-04-01 07:06] LABS: CALCIUM 9.3 mg/dL (8.4-11.0); CREATININE 4.76 mg/dL (0.55-1.30); POTASSIUM 3.4 mmol/L (3.5-5.1)
[2017-04-01 07:55] LABS: WHITE BLOOD COUNT (AUTO) 2.5 K/uL (4.8-10.8)
[2017-04-01 08:13] VITALS: BP_SYST 111
[2017-04-01] MEDS: SODIUM BICARBONATE 325 MG TABLET PO SCH (09:09)
[2017-04-01] MEDS: LACTOBACILLUS RHAMNOSUS GG 1 CAP CAPSULE PO SCH (09:10)
[2017-04-01] MEDS: AZITHROMYCIN 250 MG TABLET PO SCH (09:10)
[2017-04-01] MEDS: SEVELAMER HCL 800 MG TABLET PO SCH ×3 (09:10→17:38)
[2017-04-01] MEDS: CARVEDILOL 25 MG TABLET (COREG) PO SCH ×2 (09:10→21:00)
[2017-04-01] MEDS: PREDNISONE 10 MG TABLET PO SCH (09:11)
[2017-04-01] MEDS: CALCITRIOL 0.25 MCG CAPSULE PO SCH (09:11)
[2017-04-01] MEDS: FAMOTIDINE 20 MG TABLET PO SCH (09:11)
[2017-04-01] MEDS: ASCORBIC ACID 500 MG TABLET PO SCH (09:11)
[2017-04-01] MEDS: NIFEDIPINE 30 MG TAB.ER.24 PO SCH (09:13)
[2017-04-01] MEDS: ETHAMBUTOL 400 MG PO SCH (09:14)
[2017-04-01 10:31] LABS: ATYPICAL LYMPHOCYTES % 0 % (0-0); BAND % (MANUAL) 14 % (0-6); BASOPHILS % (MANUAL) 0 % (0-2); EOSINOPHILS % (MANUAL) 2 % (0-7); LYMPHOCYTES % (MANUAL) 10 % (20-46); MONOCYTES % (MANUAL) 10 % (0-11)
[2017-04-01 13:14] VITALS: BP_SYST 130
[2017-04-01] MEDS: MICAFUNGIN SODIUM 100 MG in NS 100 ML IV SCH (17:37)
[2017-04-01] MEDS: FILGRASTIM 480 MCG/VIAL SUBCUT SCH (17:38)
[2017-04-01 18:43] VITALS: BP_SYST 102
[2017-04-01 19:22] VITALS: BP_SYST 107
[2017-04-01] MEDS: DIPHENHYDRAMINE HCL/ZINC ACET 28.3 GM CREAM.GM. TP SCH (21:00)
[2017-04-01] MEDS: CEFEPIME 1 GM in D5W 50 ML IV SCH (21:39)
[2017-04-02] VITALS (7 sets, daily range): BP systolic 97–131
[2017-04-02] MEDS: INSULIN REGULAR, HUMAN 100 UNITS/ML, 10 ML VIAL (novoLIN R) SUBCUT PRN ×3 (06:11→21:11)
[2017-04-02] MEDS: ACETAMINOPHEN 325 MG TABLET PO PRN ×2 (06:15→13:48)
[2017-04-02 07:20] LABS: CALCIUM 10.1 mg/dL (8.4-11.0); CREATININE 6.01 mg/dL (0.55-1.30); POTASSIUM 4.3 mmol/L (3.5-5.1)
[2017-04-02 07:28] LABS: HEMATOCRIT 26.8 % (36-54); HEMOGLOBIN 8.9 g/dL (14.0-18.0); MEAN CORPUSCULAR HEMOGLOBIN 28 pg (27-31); MEAN CORPUSCULAR HGB CONC 33 % (32-36); MEAN CORPUSCULAR VOLUME 85 fL (79.0-98.0); PLATELET COUNT (AUTO) 62 K/uL (130-430); RED BLOOD CELL COUNT(AUTO) 3.17 MIL/uL (4.2-6.2); RED CELL DISTRIBUTION WIDTH 14.7 % (9.0-15.0)
[2017-04-02 07:31] LABS: WHITE BLOOD COUNT (AUTO) 2.9 K/uL (4.8-10.8)
[2017-04-02] MEDS: PREDNISONE 10 MG TABLET PO SCH (09:08)
[2017-04-02] MEDS: SEVELAMER HCL 800 MG TABLET PO SCH ×3 (09:08→17:09)
[2017-04-02] MEDS: AZITHROMYCIN 250 MG TABLET PO SCH (09:08)
[2017-04-02] MEDS: FAMOTIDINE 20 MG TABLET PO SCH (09:08)
[2017-04-02] MEDS: LACTOBACILLUS RHAMNOSUS GG 1 CAP CAPSULE PO SCH (09:09)
[2017-04-02] MEDS: ASCORBIC ACID 500 MG TABLET PO SCH (09:09)
[2017-04-02] MEDS: CEFEPIME 1 GM in D5W 50 ML IV SCH ×2 (09:26→21:07)
[2017-04-02] MEDS: DIPHENHYDRAMINE HCL/ZINC ACET 28.3 GM CREAM.GM. TP SCH ×3 (09:27→21:07)
[2017-04-02 10:54] LABS: BAND % (MANUAL) 10 % (0-6)
[2017-04-02 10:55] LABS: ATYPICAL LYMPHOCYTES % 0 % (0-0); BASOPHILS % (MANUAL) 0 % (0-2); EOSINOPHILS % (MANUAL) 2 % (0-7); LYMPHOCYTES % (MANUAL) 18 % (20-46); METAMYELOCYTES % 2 % (0-0); MONOCYTES % (MANUAL) 10 % (0-11); MYELOCYTES % 2 % (0-0)
[2017-04-02] MEDS: CARVEDILOL 25 MG TABLET (COREG) PO SCH ×2 (13:40→21:00)
[2017-04-02] MEDS: NIFEDIPINE 30 MG TAB.ER.24 PO SCH (13:40)
[2017-04-02] MEDS: CALCITRIOL 0.25 MCG CAPSULE PO SCH (13:48)
[2017-04-02] MEDS: EPOETIN ALFA 3,000 UNITS/ML VIAL SUBCUT SCH (17:16)
[2017-04-02] MEDS: MICAFUNGIN SODIUM 100 MG in NS 100 ML IV SCH (17:16)
[2017-04-02 20:58] LABS: HEPATITIS B CORE AB, TOTAL Positive (NEGATIVE)
[2017-04-02] MEDS: TACROLIMUS ANHYDROUS 1 MG CAPSULE (PROGRAF) PO SCH (21:07)
[2017-04-02] MEDS: methylPREDNISolone SOD SUCC 40 MG/ML VIAL IVP SCH (21:07)
[2017-04-02] MEDS: metroNIDAZOLE 250 mg/NS 50 ML IV SCH (22:42)
[2017-04-03 00:01] VITALS: BP_SYST 111
[2017-04-03 04:00] VITALS: BP_SYST 115
[2017-04-03] MEDS: metroNIDAZOLE 250 mg/NS 50 ML IV SCH ×3 (06:04→22:40)
[2017-04-03] MEDS: INSULIN REGULAR, HUMAN 100 UNITS/ML, 10 ML VIAL (novoLIN R) SUBCUT PRN ×4 (06:08→20:41)
[2017-04-03 06:45] LABS: CALCIUM 10.5 mg/dL (8.4-11.0); CREATININE 5.12 mg/dL (0.55-1.30); POTASSIUM 3.9 mmol/L (3.5-5.1)
[2017-04-03] MEDS: SEVELAMER HCL 800 MG TABLET PO SCH ×3 (08:18→17:10)
[2017-04-03] MEDS: ASCORBIC ACID 500 MG TABLET PO SCH (08:18)
[2017-04-03] MEDS: methylPREDNISolone SOD SUCC 40 MG/ML VIAL IVP SCH ×2 (08:18→21:41)
[2017-04-03] MEDS: CALCITRIOL 0.25 MCG CAPSULE PO SCH (08:18)
[2017-04-03] MEDS: LACTOBACILLUS RHAMNOSUS GG 1 CAP CAPSULE PO SCH (08:18)
[2017-04-03] MEDS: FAMOTIDINE 20 MG TABLET PO SCH (08:19)
[2017-04-03] MEDS: AZITHROMYCIN 250 MG TABLET PO SCH (08:19)
[2017-04-03] MEDS: DIPHENHYDRAMINE HCL/ZINC ACET 28.3 GM CREAM.GM. TP SCH ×3 (08:19→20:36)
[2017-04-03] MEDS: CEFEPIME 1 GM in D5W 50 ML IV SCH ×2 (08:19→21:41)
[2017-04-03] MEDS: NIFEDIPINE 30 MG TAB.ER.24 PO SCH (08:20)
[2017-04-03] MEDS: TACROLIMUS ANHYDROUS 1 MG CAPSULE (PROGRAF) PO SCH ×2 (08:20→20:37)
[2017-04-03] MEDS: CARVEDILOL 25 MG TABLET (COREG) PO SCH ×2 (08:21→20:36)
[2017-04-03 09:35] LABS: HEMATOCRIT 27.5 % (36-54); MEAN CORPUSCULAR HEMOGLOBIN 28 pg (27-31); MEAN CORPUSCULAR HGB CONC 33 % (32-36); MEAN CORPUSCULAR VOLUME 85 fL (79.0-98.0); RED BLOOD CELL COUNT(AUTO) 3.25 MIL/uL (4.2-6.2); RED CELL DISTRIBUTION WIDTH 15.2 % (9.0-15.0); WHITE BLOOD COUNT (AUTO) 3.4 K/uL (4.8-10.8)
[2017-04-03 10:15] LABS: PLATELET COUNT (AUTO) 39 K/uL (130-430)
[2017-04-03 11:58] LABS: ATYPICAL LYMPHOCYTES % 4 % (0-0); BAND % (MANUAL) 17 % (0-6); BASOPHILS % (MANUAL) 0 % (0-2); EOSINOPHILS % (MANUAL) 1 % (0-7); LYMPHOCYTES % (MANUAL) 13 % (20-46); MONOCYTES % (MANUAL) 6 % (0-11)
[2017-04-03 11:59] LABS: MYELOCYTES % 1 % (0-0)
[2017-04-03 13:49] VITALS: BP_SYST 129
[2017-04-03] MEDS: MICAFUNGIN SODIUM 100 MG in NS 100 ML IV SCH (17:10)
[2017-04-03 17:19] VITALS: BP_SYST 162
[2017-04-03 19:35] VITALS: BP_SYST 130
[2017-04-03 20:00] VITALS: BP_SYST 177
[2017-04-04] VITALS (7 sets, daily range): BP systolic 143–177
[2017-04-04] MEDS: metroNIDAZOLE 250 mg/NS 50 ML IV SCH (05:22)
[2017-04-04] MEDS: INSULIN REGULAR, HUMAN 100 UNITS/ML, 10 ML VIAL (novoLIN R) SUBCUT PRN ×4 (06:12→23:17)
[2017-04-04 07:17] LABS: BASOPHILS % (AUTO) 0.5 % (0.0-2.0); EOSINOPHILS % (AUTO) 1.2 % (0.0-4.0); HEMOGLOBIN 8.9 g/dL (14.0-18.0); LYMPHOCYTES # (AUTO) 0.4 K/uL (1.0-5.5); LYMPHOCYTES % (AUTO) 12.5 % (20.5-51.5); MEAN CORPUSCULAR HEMOGLOBIN 28 pg (27-31); MEAN CORPUSCULAR HGB CONC 33 % (32-36); MEAN CORPUSCULAR VOLUME 85 fL (79.0-98.0); MONOCYTES # (AUTO) 0.2 K/uL (0.0-1.0); MONOCYTES % (AUTO) 7.5 % (1.7-9.3); NEUTROPHILS # (AUTO) 2.5 K/uL (1.8-7.7); RED BLOOD CELL COUNT(AUTO) 3.16 MIL/uL (4.2-6.2); RED CELL DISTRIBUTION WIDTH 14.9 % (9.0-15.0); WHITE BLOOD COUNT (AUTO) 3.1 K/uL (4.8-10.8)
[2017-04-04 07:39] LABS: PLATELET COUNT (AUTO) 39 K/uL (130-430)
[2017-04-04 07:40] LABS: NEUTROPHILS % (AUTO) 78.3 % (40.0-70.0)
[2017-04-04] MEDS: CARVEDILOL 25 MG TABLET (COREG) PO SCH ×2 (09:00→23:09)
[2017-04-04] MEDS: NIFEDIPINE 30 MG TAB.ER.24 PO SCH (09:00)
[2017-04-04] MEDS: LACTOBACILLUS RHAMNOSUS GG 1 CAP CAPSULE PO SCH (09:18)
[2017-04-04] MEDS: ASCORBIC ACID 500 MG TABLET PO SCH (09:18)
[2017-04-04] MEDS: FAMOTIDINE 20 MG TABLET PO SCH (09:18)
[2017-04-04] MEDS: SEVELAMER HCL 800 MG TABLET PO SCH ×3 (09:18→18:56)
[2017-04-04] MEDS: methylPREDNISolone SOD SUCC 40 MG/ML VIAL IVP SCH ×2 (09:18→23:14)
[2017-04-04] MEDS: CALCITRIOL 0.25 MCG CAPSULE PO SCH (09:19)
[2017-04-04] MEDS: TACROLIMUS ANHYDROUS 1 MG CAPSULE (PROGRAF) PO SCH ×2 (09:19→23:10)
[2017-04-04] MEDS: CEFEPIME 1 GM in D5W 50 ML IV SCH (09:19)
[2017-04-04] MEDS: DIPHENHYDRAMINE HCL/ZINC ACET 28.3 GM CREAM.GM. TP SCH ×3 (09:19→21:00)
[2017-04-04] MEDS ORDERED: AZITHROMYCIN 500 MG in NS 250 ML IV SCH (12:00)
[2017-04-04] MEDS: EPOETIN ALFA 3,000 UNITS/ML VIAL SUBCUT SCH (16:12)
[2017-04-04] MEDS: ACETAMINOPHEN 325 MG TABLET PO PRN (17:11)
[2017-04-04] MEDS ORDERED: DIPHENHYDRAMINE HCL 25 MG CAPSULE PO PRN (18:15)
[2017-04-04] MEDS ORDERED: DIPHENHYDRAMINE HCL 25 MG CAPSULE ONE (18:29)
[2017-04-05 06:00] VITALS: BP_SYST 184
[2017-04-05] MEDS: INSULIN REGULAR, HUMAN 100 UNITS/ML, 10 ML VIAL (novoLIN R) SUBCUT PRN ×2 (06:41→21:36)
[2017-04-05 07:57] LABS: BASOPHILS % (AUTO) 0.8 % (0.0-2.0); EOSINOPHILS % (AUTO) 0.1 % (0.0-4.0); HEMATOCRIT 28.5 % (36-54); LYMPHOCYTES # (AUTO) 0.3 K/uL (1.0-5.5); LYMPHOCYTES % (AUTO) 11.9 % (20.5-51.5); MEAN CORPUSCULAR HEMOGLOBIN 27 pg (27-31); MEAN CORPUSCULAR HGB CONC 32 % (32-36); MEAN CORPUSCULAR VOLUME 86 fL (79.0-98.0); MONOCYTES # (AUTO) 0.3 K/uL (0.0-1.0); MONOCYTES % (AUTO) 9.3 % (1.7-9.3); NEUTROPHILS # (AUTO) 2.2 K/uL (1.8-7.7); RED BLOOD CELL COUNT(AUTO) 3.31 MIL/uL (4.2-6.2); RED CELL DISTRIBUTION WIDTH 15.4 % (9.0-15.0); WHITE BLOOD COUNT (AUTO) 2.8 K/uL (4.8-10.8)
[2017-04-05 08:00] VITALS: BP_SYST 178
[2017-04-05] MEDS: SEVELAMER HCL 800 MG TABLET PO SCH ×3 (08:00→17:21)
[2017-04-05 08:23] LABS: PLATELET COUNT (AUTO) 32 K/uL (130-430)
[2017-04-05] MEDS: CARVEDILOL 25 MG TABLET (COREG) PO SCH ×3 (08:42→21:33)
[2017-04-05] MEDS: FAMOTIDINE 20 MG TABLET PO SCH (08:42)
[2017-04-05] MEDS: LACTOBACILLUS RHAMNOSUS GG 1 CAP CAPSULE PO SCH (08:42)
[2017-04-05] MEDS: CALCITRIOL 0.25 MCG CAPSULE PO SCH (08:43)
[2017-04-05] MEDS: NIFEDIPINE 30 MG TAB.ER.24 PO SCH ×2 (08:43→11:16)
[2017-04-05] MEDS: TACROLIMUS ANHYDROUS 1 MG CAPSULE (PROGRAF) PO SCH ×2 (08:43→21:33)
[2017-04-05] MEDS: ASCORBIC ACID 500 MG TABLET PO SCH (08:43)
[2017-04-05] MEDS: AZITHROMYCIN 250 MG TABLET PO SCH (08:43)
[2017-04-05] MEDS: methylPREDNISolone SOD SUCC 40 MG/ML VIAL IVP SCH ×2 (08:53→21:54)
[2017-04-05] MEDS: DIPHENHYDRAMINE HCL/ZINC ACET 28.3 GM CREAM.GM. TP SCH ×3 (08:55→21:33)
[2017-04-05 11:30] LABS: INR 1.2 (0.80-1.20); PROTHROMBIN TIME 13.3 SECS (9.5-12.5)
[2017-04-05 11:50] LABS: NEUTROPHILS % (AUTO) 77.9 % (40.0-70.0)
[2017-04-05 12:02] VITALS: BP_SYST 177
[2017-04-05] MEDS: 0.45% NACL 1,000 ML IV SCH (15:30)
[2017-04-05 16:04] VITALS: BP_SYST 194
[2017-04-05 18:47] LABS: BILIRUBIN,URINE NEGATIVE (NEGATIVE); CLARITY/URINE CLEAR (CLEAR); COLOR,URINE YELLOW (YELLOW); GLUCOSE,URINE 2+ (NEGATIVE); KETONES,URINE NEGATIVE (NEGATIVE); LEUKOCYTE ESTERASE ,URINE NEGATIVE (NEGATIVE); NITRITE, URINE NEGATIVE (NEGATIVE); PROTEIN URINE 2+ (NEGATIVE); UROBILINOGEN,URINE 0.2 (0.2-1.0)
[2017-04-05 18:56] LABS: BLOOD, URINE TRACE (NEGATIVE)
[2017-04-05 18:57] LABS: BACTERIA,URINE FEW /HPF (None Seen); RBC,URINE 0-3 /HPF (0-3); WBC,URINE NONE SEEN /HPF (0-3)
[2017-04-05 18:58] LABS: MUCUS,URINE None Seen /LPF (None Seen)
[2017-04-05 19:35] VITALS: BP_SYST 186
[2017-04-05 23:40] VITALS: BP_SYST 186
[2017-04-06] VITALS (7 sets, daily range): BP systolic 118–180
[2017-04-06] MEDS: INSULIN REGULAR, HUMAN 100 UNITS/ML, 10 ML VIAL (novoLIN R) SUBCUT PRN ×3 (06:29→16:36)
[2017-04-06] MEDS: NIFEDIPINE 30 MG TAB.ER.24 PO SCH (06:55)
[2017-04-06 07:21] LABS: CALCIUM 9.7 mg/dL (8.4-11.0); CREATININE 5.57 mg/dL (0.55-1.30); PHOSPHORUS 6.4 mg/dL (2.7-4.5); POTASSIUM 3.9 mmol/L (3.5-5.1)
[2017-04-06] MEDS: SEVELAMER HCL 800 MG TABLET PO SCH ×3 (08:00→18:06)
[2017-04-06 08:07] LABS: BASOPHILS % (AUTO) 0.3 % (0.0-2.0); EOSINOPHILS % (AUTO) 0.1 % (0.0-4.0); HEMATOCRIT 27.1 % (36-54); HEMOGLOBIN 8.9 g/dL (14.0-18.0); LYMPHOCYTES # (AUTO) 0.5 K/uL (1.0-5.5); LYMPHOCYTES % (AUTO) 17.4 % (20.5-51.5); MEAN CORPUSCULAR HEMOGLOBIN 28 pg (27-31); MEAN CORPUSCULAR HGB CONC 33 % (32-36); MEAN CORPUSCULAR VOLUME 85 fL (79.0-98.0); MONOCYTES # (AUTO) 0.3 K/uL (0.0-1.0); MONOCYTES % (AUTO) 9.2 % (1.7-9.3); NEUTROPHILS # (AUTO) 2.3 K/uL (1.8-7.7); PLATELET COUNT (AUTO) 56 K/uL (130-430); RED BLOOD CELL COUNT(AUTO) 3.19 MIL/uL (4.2-6.2); RED CELL DISTRIBUTION WIDTH 15.4 % (9.0-15.0); WHITE BLOOD COUNT (AUTO) 3.1 K/uL (4.8-10.8)
[2017-04-06] MEDS: DIPHENHYDRAMINE HCL/ZINC ACET 28.3 GM CREAM.GM. TP SCH ×3 (09:00→23:59)
[2017-04-06] MEDS ORDERED: hydrALAZINE HCL 20 MG/ML VIAL IVP ONE (10:00)
[2017-04-06] MEDS: CARVEDILOL 25 MG TABLET (COREG) PO SCH ×2 (11:15→23:58)
[2017-04-06] MEDS: CALCITRIOL 0.25 MCG CAPSULE PO SCH (11:15)
[2017-04-06] MEDS: TACROLIMUS ANHYDROUS 1 MG CAPSULE (PROGRAF) PO SCH ×2 (11:15→23:57)
[2017-04-06] MEDS: LACTOBACILLUS RHAMNOSUS GG 1 CAP CAPSULE PO SCH (11:16)
[2017-04-06] MEDS: AZITHROMYCIN 250 MG TABLET PO SCH (11:16)
[2017-04-06] MEDS: ASCORBIC ACID 500 MG TABLET PO SCH (11:16)
[2017-04-06] MEDS: FAMOTIDINE 20 MG TABLET PO SCH (11:16)
[2017-04-06] MEDS: methylPREDNISolone SOD SUCC 40 MG/ML VIAL IVP SCH ×2 (12:08→21:14)
[2017-04-06] MEDS ORDERED: COMMUNICATION ORDER XX ONE (15:15)
[2017-04-06] MEDS ORDERED: ALTEPLASE 2 MG VIAL MC ONE (15:30)
[2017-04-06] MEDS: 0.45% NACL 1,000 ML IV SCH (18:06)
[2017-04-06] MEDS: EPOETIN ALFA 3,000 UNITS/ML VIAL SUBCUT SCH (18:06)
[2017-04-06] MEDS ORDERED: TEMAZEPAM 15 MG CAPSULE PO PRN (22:30)
[2017-04-07] VITALS: BP_SYST 141
[2017-04-07 05:10] VITALS: BP_SYST 153
[2017-04-07] MEDS: INSULIN REGULAR, HUMAN 100 UNITS/ML, 10 ML VIAL (novoLIN R) SUBCUT PRN ×4 (05:39→22:31)
[2017-04-07 07:41] LABS: BASOPHILS % (AUTO) 0.1 % (0.0-2.0); HEMATOCRIT 26.9 % (36-54); MONOCYTES # (AUTO) 0.2 K/uL (0.0-1.0); WHITE BLOOD COUNT (AUTO) 3.1 K/uL (4.8-10.8)
[2017-04-07 07:42] VITALS: BP_SYST 146
[2017-04-07 07:43] LABS: CALCIUM 8.5 mg/dL (8.4-11.0); CREATININE 3.32 mg/dL (0.55-1.30); POTASSIUM 3.2 mmol/L (3.5-5.1)
[2017-04-07 08:23] LABS: EOSINOPHILS % (AUTO) 0.2 % (0.0-4.0); HEMOGLOBIN 8.9 g/dL (14.0-18.0); LYMPHOCYTES # (AUTO) 0.5 K/uL (1.0-5.5); LYMPHOCYTES % (AUTO) 17.6 % (20.5-51.5); MEAN CORPUSCULAR HEMOGLOBIN 28 pg (27-31); MEAN CORPUSCULAR HGB CONC 33 % (32-36); MEAN CORPUSCULAR VOLUME 83 fL (79.0-98.0); MONOCYTES % (AUTO) 5.6 % (1.7-9.3); NEUTROPHILS # (AUTO) 2.4 K/uL (1.8-7.7); NEUTROPHILS % (AUTO) 76.5 % (40.0-70.0); PLATELET COUNT (AUTO) 59 K/uL (130-430); RED BLOOD CELL COUNT(AUTO) 3.24 MIL/uL (4.2-6.2); RED CELL DISTRIBUTION WIDTH 15.4 % (9.0-15.0)
[2017-04-07] MEDS: ASCORBIC ACID 500 MG TABLET PO SCH (08:53)
[2017-04-07] MEDS: CALCITRIOL 0.25 MCG CAPSULE PO SCH (08:53)
[2017-04-07] MEDS: SEVELAMER HCL 800 MG TABLET PO SCH ×3 (08:53→17:24)
[2017-04-07] MEDS: FAMOTIDINE 20 MG TABLET PO SCH (08:53)
[2017-04-07] MEDS: LACTOBACILLUS RHAMNOSUS GG 1 CAP CAPSULE PO SCH (08:54)
[2017-04-07] MEDS: TACROLIMUS ANHYDROUS 1 MG CAPSULE (PROGRAF) PO SCH ×2 (08:55→22:08)
[2017-04-07] MEDS: NIFEDIPINE 30 MG TAB.ER.24 PO SCH (08:56)
[2017-04-07] MEDS: methylPREDNISolone SOD SUCC 40 MG/ML VIAL IVP SCH ×2 (08:57→22:08)
[2017-04-07] MEDS: CARVEDILOL 25 MG TABLET (COREG) PO SCH ×2 (08:59→22:19)
[2017-04-07] MEDS: AZITHROMYCIN 250 MG TABLET PO SCH (09:00)
[2017-04-07] MEDS: DIPHENHYDRAMINE HCL/ZINC ACET 28.3 GM CREAM.GM. TP SCH ×3 (09:00→22:27)
[2017-04-07] MEDS ORDERED: POTASSIUM CHLORIDE 20 MEQ TAB.PRT.SR PO ONE (11:15)
[2017-04-07 12:41] VITALS: BP_SYST 93
[2017-04-07] MEDS: 0.45% NACL 1,000 ML IV SCH (14:48)
[2017-04-07 16:53] VITALS: BP_SYST 98
[2017-04-07 20:47] VITALS: BP_SYST 144
[2017-04-08 00:09] VITALS: BP_SYST 149
[2017-04-08 04:00] VITALS: BP_SYST 150
[2017-04-08] MEDS: 0.45% NACL 1,000 ML IV SCH (06:29)
[2017-04-08] MEDS: INSULIN REGULAR, HUMAN 100 UNITS/ML, 10 ML VIAL (novoLIN R) SUBCUT PRN ×2 (06:39→12:34)
[2017-04-08 08:17] LABS: CREATININE 4.37 mg/dL (0.55-1.30); POTASSIUM 3.7 mmol/L (3.5-5.1)
[2017-04-08] MEDS: CARVEDILOL 25 MG TABLET (COREG) PO SCH ×2 (09:00→20:24)
[2017-04-08] MEDS: NIFEDIPINE 30 MG TAB.ER.24 PO SCH (09:00)
[2017-04-08] MEDS: methylPREDNISolone SOD SUCC 40 MG/ML VIAL IVP SCH ×2 (10:45→20:24)
[2017-04-08] MEDS: CALCITRIOL 0.25 MCG CAPSULE PO SCH (10:46)
[2017-04-08] MEDS: ASCORBIC ACID 500 MG TABLET PO SCH (10:46)
[2017-04-08] MEDS: AZITHROMYCIN 250 MG TABLET PO SCH (10:46)
[2017-04-08] MEDS: LACTOBACILLUS RHAMNOSUS GG 1 CAP CAPSULE PO SCH (10:46)
[2017-04-08] MEDS: FAMOTIDINE 20 MG TABLET PO SCH (10:46)
[2017-04-08] MEDS: DIPHENHYDRAMINE HCL/ZINC ACET 28.3 GM CREAM.GM. TP SCH ×2 (10:48→17:53)
[2017-04-08] MEDS: TACROLIMUS ANHYDROUS 1 MG CAPSULE (PROGRAF) PO SCH (10:48)
[2017-04-08] MEDS: SEVELAMER HCL 800 MG TABLET PO SCH ×3 (11:57→17:56)
[2017-04-08 12:16] VITALS: BP_SYST 178
[2017-04-08] MEDS ORDERED: HEPARIN SODIUM, PORCINE 10,000 UNITS/ 10 ML VIAL IV ONE (13:45)
[2017-04-08 16:00] VITALS: BP_SYST 141
[2017-04-08] MEDS ORDERED: INSULIN ASPART 100 UNITS/ML, 10 ML VIAL SUBCUT SCH (17:00)
[2017-04-08] MEDS ORDERED: INSULIN ASPART 100 UNITS/ML, 10 ML VIAL (NovoLOG) SUBCUT PRN (17:00)
[2017-04-08 19:54] VITALS: BP_SYST 173
[2017-04-08 20:00] VITALS: BP_SYST 173
[2017-04-09 12:07] LABS: TACROLIMUS (FK506) 4.2 ng/mL (2.0-20.0)
== END 2017-04-08 21:30 | disposition home health service (06) | DRG 698 ==
LOC: SED 10:57 → STU 12:37
PROVIDERS: ADMIT Internal Medicine; ATTEND Internal Medicine
PROC: 02HV33Z Insertion of Infusion Device into Superior Vena Cava, Percutaneous Approach (ICD-10-PCS; principal; 2017-03-30)
PROC: B548ZZA Ultrasonography of Superior Vena Cava, Guidance (ICD-10-PCS; 2017-03-30)
PROC: 5A1D60Z (ICD-10-PCS; 2017-03-30)
DX: T86.12 Kidney transplant failure (principal); N18.6 End stage renal disease; G93.49 Other encephalopathy; N17.9 Acute kidney failure, unspecified; D61.818 Other pancytopenia; B37.0 Candidal stomatitis; N39.0 Urinary tract infection, site not specified; L97.409 Non-pressure chronic ulcer of unspecified heel and midfoot with unspecified severity; I12.0 Hypertensive chronic kidney disease with stage 5 chronic kidney disease or end stage renal disease; A31.2 Disseminated mycobacterium avium-intracellulare complex (DMAC); E87.1 Hypo-osmolality and hyponatremia; E87.6 Hypokalemia; E87.5 Hyperkalemia; D63.8 Anemia in other chronic diseases classified elsewhere; E11.22 Type 2 diabetes mellitus with diabetic chronic kidney disease; Y83.0 Surgical operation with transplant of whole organ as the cause of abnormal reaction of the patient, or of later complication, without mention of misadventure at the time of the procedure; Z79.899 Other long term (current) drug therapy; Z79.2 Long term (current) use of antibiotics; Z79.52 Long term (current) use of systemic steroids; Y92.89 Other specified places as the place of occurrence of the external cause; Y93.89 Activity, other specified; Y99.8 Other external cause status
CPT/HCPCS: 36415; 71010; 76937; 80048; 80053; 80074; 80197; 81000-TC; 82962; 83605; 83735-TC; 84100-TC; 84484; 85007; 85025; 85027; 85610-TC; 85730-TC; 86480; 86704; 86706; 87040-TC; 87081; 87086; 87340; 90935; 90937; 93005; 96365; 96367; 96375; 97110-GP; 97116-GP; 97530-GP; 99285; C1751; J0360; J0456; J0610; J0692; J0885; J1030; J1442; J1644; J1815; J2185; J2248; J2543; J2997; J3370; J3490; J7030; J7050; J7060; J7507; J7512; Q0144; Q0163

== ENCOUNTER 2017-04-11 23:34 | Emergency (ER) | payer BC ==
[~2017-04-11] VITALS: Ht 177.8 cm; Wt 74.8 kg
[2017-04-11 23:36] VITALS: BP_SYST 145
[2017-04-11] MEDS ORDERED: NACL 0.9% 1,000 ML IV ONE (23:45)
[2017-04-12 00:20] LABS: HEMATOCRIT 26.9 % (36-54); HEMOGLOBIN 8.7 g/dL (14.0-18.0); MEAN CORPUSCULAR HEMOGLOBIN 28 pg (27-31); MEAN CORPUSCULAR HGB CONC 32 % (32-36); MEAN CORPUSCULAR VOLUME 87 fL (79.0-98.0); PLATELET COUNT (AUTO) 81 K/uL (130-430); RED BLOOD CELL COUNT(AUTO) 3.08 MIL/uL (4.2-6.2); RED CELL DISTRIBUTION WIDTH 16.4 % (9.0-15.0); WHITE BLOOD COUNT (AUTO) 6.8 K/uL (4.8-10.8)
[2017-04-12 00:30] LABS: CALCIUM 8.1 mg/dL (8.4-11.0); CREATININE 4.71 mg/dL (0.55-1.30); POTASSIUM 3.5 mmol/L (3.5-5.1)
[2017-04-12 00:35] LABS: ALBUMIN 2.1 g/dL (3.4-4.8); TOTAL BILIRUBIN 0.8 mg/dL (0.0-1.0); TOTAL PROTEIN, SERUM 6.8 g/dL (6.4-8.3)
[2017-04-12 01:29] LABS: BAND % (MANUAL) 11 % (0-6); BASOPHILS % (MANUAL) 0 % (0-2); EOSINOPHILS % (MANUAL) 0 % (0-7); LYMPHOCYTES % (MANUAL) 3 % (20-46); MONOCYTES % (MANUAL) 2 % (0-11)
[2017-04-12 01:30] LABS: METAMYELOCYTES % 1 % (0-0)
[2017-04-12] MEDS ORDERED: cefTRIAXone 1 GM VIAL IM ONE (02:15)
[2017-04-12 02:35] VITALS: BP_SYST 162
== END 2017-04-12 02:35 | disposition home or self-care (01) ==
LOC: SED 23:34
DX: R62.7 Adult failure to thrive (principal); I12.0 Hypertensive chronic kidney disease with stage 5 chronic kidney disease or end stage renal disease; E11.22 Type 2 diabetes mellitus with diabetic chronic kidney disease; N18.6 End stage renal disease; Z99.2 Dependence on renal dialysis; Z94.0 Kidney transplant status; Z79.4 Long term (current) use of insulin; Z79.899 Other long term (current) drug therapy
CPT/HCPCS: 36415; 71010; 80053; 83605; 85007; 85027; 87040-TC; 93005; 99285

== ENCOUNTER 2017-04-29 01:06 | Inpatient (IN) | payer BC ==
[~2017-04-29] VITALS: Ht 177.8 cm; Wt 68.0 kg
[2017-04-29 01:10] VITALS: BP_SYST 131
[2017-04-29] MEDS ORDERED: NACL 0.9% 1,000 ML IV ONE (02:30)
[2017-04-29 02:59] LABS: HEMATOCRIT 30.4 % (36-54)
[2017-04-29 03:12] LABS: HEMOGLOBIN 9.9 g/dL (14.0-18.0); MEAN CORPUSCULAR HEMOGLOBIN 28 pg (27-31); MEAN CORPUSCULAR HGB CONC 33 % (32-36); MEAN CORPUSCULAR VOLUME 87 fL (79.0-98.0); PLATELET COUNT (AUTO) 73 K/uL (130-430); RED BLOOD CELL COUNT(AUTO) 3.51 MIL/uL (4.2-6.2); RED CELL DISTRIBUTION WIDTH 16.8 % (9.0-15.0); WHITE BLOOD COUNT (AUTO) 7.3 K/uL (4.8-10.8)
[2017-04-29 03:17] LABS: CALCIUM 11.7 mg/dL (8.4-11.0); CREATININE 6.09 mg/dL (0.55-1.30); POTASSIUM 4.3 mmol/L (3.5-5.1)
[2017-04-29 03:21] LABS: ALBUMIN 1.8 g/dL (3.4-4.8); TOTAL BILIRUBIN 0.7 mg/dL (0.0-1.0); TOTAL PROTEIN, SERUM 6.7 g/dL (6.4-8.3)
[2017-04-29 03:22] LABS: INR 1.3 (0.80-1.20); PROTHROMBIN TIME 13.8 SECS (9.5-12.5)
[2017-04-29] MEDS ORDERED: INSULIN REGULAR, HUMAN 10 UNITS/0.1 ML INJ SUBCUT ONE (03:30)
[2017-04-29] MEDS ORDERED: LORazepam 2 MG/ML VIAL (FOR ER USE) IM ONE (04:15)
[2017-04-29 04:23] LABS: BAND % (MANUAL) 21 % (0-6); BASOPHILS % (MANUAL) 0 % (0-2); EOSINOPHILS % (MANUAL) 0 % (0-7); LYMPHOCYTES % (MANUAL) 5 % (20-46); MONOCYTES % (MANUAL) 5 % (0-11)
[2017-04-29] MEDS ORDERED: CALC215T2 PO (04:28)
[2017-04-29] MEDS ORDERED: INSU100I24 SQ (04:28)
[2017-04-29] MEDS ORDERED: VITD2000 PO (04:28)
[2017-04-29] MEDS ORDERED: INSU100V9 SUBCUT (04:28)
[2017-04-29] MEDS ORDERED: L.RH1CAP PO (04:28)
[2017-04-29] MEDS ORDERED: KETAMINE HCL 500 MG/10 ML VIAL IM ONE (04:45)
[2017-04-29] MEDS ORDERED: ONDANSETRON HCL 4 MG/2 ML VIAL IM ONE (04:45)
[2017-04-29] MEDS ORDERED: NS 500 ML IV ONE (05:30)
[2017-04-29 06:42] LABS: HEMATOCRIT 30.1 % (36-54); HEMOGLOBIN 9.5 g/dL (14.0-18.0); MEAN CORPUSCULAR HEMOGLOBIN 28 pg (27-31); MEAN CORPUSCULAR HGB CONC 32 % (32-36); MEAN CORPUSCULAR VOLUME 87 fL (79.0-98.0); PLATELET COUNT (AUTO) 75 K/uL (130-430); RED BLOOD CELL COUNT(AUTO) 3.44 MIL/uL (4.2-6.2); RED CELL DISTRIBUTION WIDTH 16.9 % (9.0-15.0)
[2017-04-29 06:47] LABS: POTASSIUM 4.4 mmol/L (3.5-5.1)
[2017-04-29 06:48] LABS: CALCIUM 11.7 mg/dL (8.4-11.0)
[2017-04-29 06:54] LABS: BAND % (MANUAL) 17 % (0-6); BASOPHILS % (MANUAL) 0 % (0-2); EOSINOPHILS % (MANUAL) 0 % (0-7); LYMPHOCYTES % (MANUAL) 7 % (20-46); MONOCYTES % (MANUAL) 6 % (0-11)
[2017-04-29 07:25] VITALS: BP_SYST 137
[2017-04-29 07:44] VITALS: BP_SYST 137
[2017-04-29] MEDS ORDERED: INSULIN REGULAR, HUMAN 100 UNITS/ML, 10 ML VIAL (novoLIN R) SUBCUT PRN (08:15)
[2017-04-29] MEDS ORDERED: DEXTROSE 50%-WATER 50 ML DISP.SYRIN IVP PRN ×2 (08:30)
[2017-04-29] MEDS ORDERED: GLUCOSE 15 GM GEL (in 37.5 GM TUBE) PO PRN ×2 (08:30)
[2017-04-29] MEDS: TACROLIMUS ANHYDROUS 1 MG CAPSULE (PROGRAF) PO SCH ×4 (09:00→21:00)
[2017-04-29] MEDS: NIFEDIPINE 30 MG TAB.ER.24 PO SCH (09:00)
[2017-04-29] MEDS: LACTOBACILLUS RHAMNOSUS GG 1 CAP CAPSULE PO SCH (09:00)
[2017-04-29] MEDS: ASCORBIC ACID 500 MG TABLET PO SCH (09:00)
[2017-04-29] MEDS: AZITHROMYCIN 250 MG TABLET PO SCH (09:00)
[2017-04-29] MEDS: FAMOTIDINE 20 MG TABLET PO SCH (09:00)
[2017-04-29] MEDS ORDERED: MAGNESIUM PO SCH (09:00)
[2017-04-29] MEDS: ETHAMBUTOL 400 MG PO SCH ×3 (09:00→21:00)
[2017-04-29] MEDS ORDERED: PROTEIN PO SCH (09:00)
[2017-04-29] MEDS ORDERED: PREDNISONE 5 MG TABLET PO SCH (09:00)
[2017-04-29] MEDS: NACL 0.9% 1,000 ML IV SCH ×2 (11:19→22:48)
[2017-04-29] MEDS ORDERED: AMIKACIN SULFATE 1,000 MG in D5W 100 ML IV SCH (12:30)
[2017-04-29 14:55] VITALS: BP_SYST 141
[2017-04-29] MEDS: SODIUM BICARBONATE 325 MG TABLET PO SCH ×2 (15:00→21:00)
[2017-04-29] MEDS ORDERED: HYDROCORTISONE SOD SUCC 100 MG/2 ML VIAL IVP ONE (16:30)
[2017-04-29] MEDS ORDERED: AMIKACIN SULFATE 1,000 MG in D5W 100 ML IV PRN (17:00)
[2017-04-29 17:14] VITALS: BP_SYST 160
[2017-04-29] MEDS: INSULIN ASPART 100 UNITS/ML, 10 ML VIAL (NovoLOG) SUBCUT PRN ×2 (18:37→22:56)
[2017-04-29 20:00] VITALS: BP_SYST 178
[2017-04-29] MEDS ORDERED: INSULIN DEGLUDEC 100 UNIT SQ SCH (21:00)
[2017-04-29] MEDS: HYDROCORTISONE SOD SUCC 100 MG/2 ML VIAL IVP SCH (22:49)
[2017-04-29] MEDS: HEPARIN SODIUM,PORCINE 5000 UNITS/ML VIAL SUBCUT SCH (22:58)
[2017-04-30 01:01] VITALS: BP_SYST 134
[2017-04-30 04:00] VITALS: BP_SYST 142
[2017-04-30 06:04] LABS: BASOPHILS % (AUTO) 0.2 % (0.0-2.0); EOSINOPHILS % (AUTO) 0.7 % (0.0-4.0); HEMATOCRIT 26.4 % (36-54); HEMOGLOBIN 8.8 g/dL (14.0-18.0); LYMPHOCYTES # (AUTO) 0.2 K/uL (1.0-5.5); LYMPHOCYTES % (AUTO) 7.1 % (20.5-51.5); MEAN CORPUSCULAR HEMOGLOBIN 29 pg (27-31); MEAN CORPUSCULAR HGB CONC 33 % (32-36); MEAN CORPUSCULAR VOLUME 87 fL (79.0-98.0); MONOCYTES # (AUTO) 0.2 K/uL (0.0-1.0); MONOCYTES % (AUTO) 6.9 % (1.7-9.3); NEUTROPHILS % (AUTO) 85.1 % (40.0-70.0); RED BLOOD CELL COUNT(AUTO) 3.04 MIL/uL (4.2-6.2); RED CELL DISTRIBUTION WIDTH 16.5 % (9.0-15.0); WHITE BLOOD COUNT (AUTO) 3.4 K/uL (4.8-10.8)
[2017-04-30 06:05] LABS: CALCIUM 10.2 mg/dL (8.4-11.0); CREATININE 3.9 mg/dL (0.55-1.30); POTASSIUM 3.4 mmol/L (3.5-5.1)
[2017-04-30] MEDS: HYDROCORTISONE SOD SUCC 100 MG/2 ML VIAL IVP SCH ×3 (06:49→17:00)
[2017-04-30 08:09] VITALS: BP_SYST 157
[2017-04-30] MEDS ORDERED: EPOETIN ALFA 3,000 UNITS/ML VIAL SUBCUT SCH (09:00)
[2017-04-30] MEDS: VITAMIN B COMPLEX 1 CAP/TAB PO SCH (09:26)
[2017-04-30] MEDS: LACTOBACILLUS RHAMNOSUS GG 1 CAP CAPSULE PO SCH (09:26)
[2017-04-30] MEDS: FAMOTIDINE 20 MG TABLET PO SCH (09:26)
[2017-04-30] MEDS: AZITHROMYCIN 250 MG TABLET PO SCH (09:26)
[2017-04-30] MEDS: ASCORBIC ACID 500 MG TABLET PO SCH (09:26)
[2017-04-30] MEDS: NIFEDIPINE 30 MG TAB.ER.24 PO SCH (09:26)
[2017-04-30] MEDS: ETHAMBUTOL 400 MG PO SCH ×3 (09:27→22:23)
[2017-04-30] MEDS: TACROLIMUS ANHYDROUS 1 MG CAPSULE (PROGRAF) PO SCH ×4 (09:30→22:26)
[2017-04-30] MEDS: SODIUM BICARBONATE 325 MG TABLET PO SCH ×3 (09:32→22:23)
[2017-04-30] MEDS: HEPARIN SODIUM,PORCINE 5000 UNITS/ML VIAL SUBCUT SCH ×2 (09:35→22:30)
[2017-04-30 10:09] LABS: PLATELET COUNT (AUTO) 63 K/uL (130-430)
[2017-04-30 12:50] VITALS: BP_SYST 155
[2017-04-30] MEDS: NACL 0.9% 1,000 ML IV SCH (13:42)
[2017-04-30 16:40] VITALS: BP_SYST 145
[2017-04-30] MEDS: INSULIN ASPART 100 UNITS/ML, 10 ML VIAL (NovoLOG) SUBCUT PRN ×2 (17:12→22:20)
[2017-05-01 00:47] VITALS: BP_SYST 136
[2017-05-01] MEDS: NACL 0.9% 1,000 ML IV SCH (03:12)
[2017-05-01 04:14] VITALS: BP_SYST 119
[2017-05-01] MEDS: HYDROCORTISONE SOD SUCC 100 MG/2 ML VIAL IVP SCH ×2 (06:25→17:01)
[2017-05-01 07:56] VITALS: BP_SYST 160
[2017-05-01 08:25] LABS: HEMATOCRIT 26.5 % (36-54); HEMOGLOBIN 8.7 g/dL (14.0-18.0); MEAN CORPUSCULAR HEMOGLOBIN 28 pg (27-31); MEAN CORPUSCULAR HGB CONC 33 % (32-36); MEAN CORPUSCULAR VOLUME 87 fL (79.0-98.0); PLATELET COUNT (AUTO) 80 K/uL (130-430); RED BLOOD CELL COUNT(AUTO) 3.06 MIL/uL (4.2-6.2)
[2017-05-01 08:37] LABS: WHITE BLOOD COUNT (AUTO) 3.5 K/uL (4.8-10.8)
[2017-05-01 08:39] LABS: CALCIUM 10.7 mg/dL (8.4-11.0); CREATININE 5.07 mg/dL (0.55-1.30)
[2017-05-01 08:46] LABS: POTASSIUM 2.9 mmol/L (3.5-5.1)
[2017-05-01] MEDS: NIFEDIPINE 30 MG TAB.ER.24 PO SCH ×2 (09:00→22:06)
[2017-05-01] MEDS: VITAMIN B COMPLEX 1 CAP/TAB PO SCH (09:23)
[2017-05-01] MEDS: FAMOTIDINE 20 MG TABLET PO SCH (09:23)
[2017-05-01] MEDS: ASCORBIC ACID 500 MG TABLET PO SCH (09:23)
[2017-05-01] MEDS: ETHAMBUTOL 400 MG PO SCH ×3 (09:23→21:42)
[2017-05-01] MEDS: AZITHROMYCIN 250 MG TABLET PO SCH (09:23)
[2017-05-01] MEDS: LACTOBACILLUS RHAMNOSUS GG 1 CAP CAPSULE PO SCH (09:24)
[2017-05-01] MEDS: SODIUM BICARBONATE 325 MG TABLET PO SCH ×3 (09:31→21:00)
[2017-05-01] MEDS: TACROLIMUS ANHYDROUS 1 MG CAPSULE (PROGRAF) PO SCH ×4 (09:31→21:44)
[2017-05-01] MEDS: HEPARIN SODIUM,PORCINE 5000 UNITS/ML VIAL SUBCUT SCH ×2 (09:35→21:42)
[2017-05-01] MEDS ORDERED: KCL 40 mEq in 100 mL (PREMIX) 100 ML IV ONE (09:45)
[2017-05-01 10:34] LABS: BAND % (MANUAL) 2 % (0-6)
[2017-05-01 10:35] LABS: ATYPICAL LYMPHOCYTES % 0 % (0-0); BASOPHILS % (MANUAL) 0 % (0-2); EOSINOPHILS % (MANUAL) 0 % (0-7); LYMPHOCYTES % (MANUAL) 10 % (20-46); MONOCYTES % (MANUAL) 10 % (0-11)
[2017-05-01 11:44] LABS: PTH, INTACT 26 pg/mL (15-65)
[2017-05-01 12:04] VITALS: BP_SYST 169
[2017-05-01 16:25] VITALS: BP_SYST 194
[2017-05-01] MEDS ORDERED: EPOETIN ALFA 4,000 UNITS/ML VIAL SUBCUT SCH (17:00)
[2017-05-01] MEDS: INSULIN ASPART 100 UNITS/ML, 10 ML VIAL (NovoLOG) SUBCUT PRN ×2 (17:00→22:27)
[2017-05-01 20:00] VITALS: BP_SYST 171
[2017-05-01] MEDS ORDERED: AMIKACIN SULFATE 1000 MG/4 ML VIAL ONE (21:43)
[2017-05-02 00:07] VITALS: BP_SYST 168
[2017-05-02 01:16] VITALS: BP_SYST 158
[2017-05-02] MEDS: NACL 0.9% 1,000 ML IV SCH ×2 (01:34→14:14)
[2017-05-02 04:46] VITALS: BP_SYST 174
[2017-05-02] MEDS: HYDROCORTISONE SOD SUCC 100 MG/2 ML VIAL IVP SCH ×2 (05:55→17:12)
[2017-05-02 07:46] LABS: BASOPHILS % (AUTO) 0.3 % (0.0-2.0); EOSINOPHILS % (AUTO) 1.1 % (0.0-4.0); HEMATOCRIT 29.8 % (36-54); HEMOGLOBIN 9.7 g/dL (14.0-18.0); LYMPHOCYTES # (AUTO) 0.3 K/uL (1.0-5.5); LYMPHOCYTES % (AUTO) 9.4 % (20.5-51.5); MEAN CORPUSCULAR HEMOGLOBIN 28 pg (27-31); MEAN CORPUSCULAR HGB CONC 33 % (32-36); MEAN CORPUSCULAR VOLUME 87 fL (79.0-98.0); MONOCYTES # (AUTO) 0.3 K/uL (0.0-1.0); MONOCYTES % (AUTO) 9.3 % (1.7-9.3); NEUTROPHILS # (AUTO) 2.6 K/uL (1.8-7.7); NEUTROPHILS % (AUTO) 79.9 % (40.0-70.0); RED BLOOD CELL COUNT(AUTO) 3.42 MIL/uL (4.2-6.2); RED CELL DISTRIBUTION WIDTH 17.4 % (9.0-15.0); WHITE BLOOD COUNT (AUTO) 3.2 K/uL (4.8-10.8)
[2017-05-02 08:08] LABS: CALCIUM 9.7 mg/dL (8.4-11.0); CREATININE 3.68 mg/dL (0.55-1.30); POTASSIUM 3.1 mmol/L (3.5-5.1)
[2017-05-02 09:00] VITALS: BP_SYST 152
[2017-05-02] MEDS ORDERED: NIFEDIPINE 90 MG TABLET.SA (PROCARDIA XL 90 MG) PO SCH (09:00)
[2017-05-02] MEDS: VITAMIN B COMPLEX 1 CAP/TAB PO SCH (09:36)
[2017-05-02] MEDS: ETHAMBUTOL 400 MG PO SCH ×2 (09:37→14:08)
[2017-05-02] MEDS: ASCORBIC ACID 500 MG TABLET PO SCH (09:37)
[2017-05-02] MEDS: AZITHROMYCIN 250 MG TABLET PO SCH (09:37)
[2017-05-02] MEDS: FAMOTIDINE 20 MG TABLET PO SCH (09:37)
[2017-05-02] MEDS: LACTOBACILLUS RHAMNOSUS GG 1 CAP CAPSULE PO SCH (09:37)
[2017-05-02] MEDS: SODIUM BICARBONATE 325 MG TABLET PO SCH ×2 (09:38→14:08)
[2017-05-02] MEDS: TACROLIMUS ANHYDROUS 1 MG CAPSULE (PROGRAF) PO SCH ×3 (09:38→17:13)
[2017-05-02] MEDS: HEPARIN SODIUM,PORCINE 5000 UNITS/ML VIAL SUBCUT SCH (09:41)
[2017-05-02 10:40] LABS: PLATELET COUNT (AUTO) 87 K/uL (130-430)
[2017-05-02 16:10] VITALS: BP_SYST 155
[2017-05-02 18:17] VITALS: BP_SYST 155
[2017-05-04 05:23] LABS: PTH RELATED PEPTIDE <1.1 pmol/L (.)
== END 2017-05-02 19:10 | DRG 637 ==
LOC: SED 01:06 → STU 06:59 → SMU 05-01 11:29
PROVIDERS: ADMIT Internal Medicine; ATTEND Internal Medicine
PROC: 5A1D60Z (ICD-10-PCS; principal; 2017-05-01)
DX: E11.65 Type 2 diabetes mellitus with hyperglycemia (principal); N18.6 End stage renal disease; G93.41 Metabolic encephalopathy; E43 Unspecified severe protein-calorie malnutrition; J15.8 Pneumonia due to other specified bacteria; I12.0 Hypertensive chronic kidney disease with stage 5 chronic kidney disease or end stage renal disease; A31.2 Disseminated mycobacterium avium-intracellulare complex (DMAC); L97.429 Non-pressure chronic ulcer of left heel and midfoot with unspecified severity; L97.419 Non-pressure chronic ulcer of right heel and midfoot with unspecified severity; T86.11 Kidney transplant rejection; D63.1 Anemia in chronic kidney disease; D70.9 Neutropenia, unspecified; F39 Unspecified mood [affective] disorder; D75.9 Disease of blood and blood-forming organs, unspecified; E11.22 Type 2 diabetes mellitus with diabetic chronic kidney disease; E87.5 Hyperkalemia; E86.0 Dehydration; D69.6 Thrombocytopenia, unspecified; E11.621 Type 2 diabetes mellitus with foot ulcer; E83.52 Hypercalcemia; E11.42 Type 2 diabetes mellitus with diabetic polyneuropathy; Y83.0 Surgical operation with transplant of whole organ as the cause of abnormal reaction of the patient, or of later complication, without mention of misadventure at the time of the procedure; Z99.2 Dependence on renal dialysis; Z79.899 Other long term (current) drug therapy; Z79.52 Long term (current) use of systemic steroids; Z91.19 Patient's noncompliance with other medical treatment and regimen; Z68.21 Body mass index [BMI] 21.0-21.9, adult
CPT/HCPCS: 36415; 70450-TC; 71010; 80048; 80053; 82306; 82310-TC; 82607; 82962; 83519; 83921; 83970; 84443-TC; 85007; 85025; 85027; 85610-TC; 85730-TC; 87081; 90935; 90937; 96372; 97110-GP; 97116-GP; 97530-GP; 99291; C1751; J0278; J0885; J1644; J1720; J1815; J2060; J2405; J3480; J7030; J7060; J7507; Q0144

== ENCOUNTER 2017-06-08 15:13 | Inpatient (IN) | payer BC, OTHER ==
[~2017-06-08] VITALS: Ht 180.3 cm; Wt 56.8 kg
[~2017-06-08 15:13] MED LIST changes: -CALC-886 PO; +CALC215T2 PO; -CHOL500052 PO; +INSU100I24 SQ; +INSU100V9 SUBCUT; -UBID50TA3 PO; +VITD2000 PO
[2017-06-08 15:26] VITALS: BP_SYST 89
--- NOTE | 2017-06-08 15:44 | NUR ---
Placed in room 06. Placed on cardiac rn, blood pressure machine and pulse oximeter. To gown for exam. Side rails up.
--- NOTE | 2017-06-08 15:50 | NUR ---
PT PRESENTS TO ED FROM HOME C/O GEN.WEAKNESS. PT H/O ESRD,DM,HTN AND IS AMBULATED. PT HAS NO ACUTE RESP DISTRESS NOTED. INITIAL ASSESS SLIGHT BRADYCARDIA. PT'S HR IMPROVED AFTER MONITOR ON GURNEY.WILL CONTINUE TO MONITOR. PT DENIES CP OR SOB.
--- NOTE | 2017-06-08 16:00 | NUR ---
ER at bedside examining patient.
[2017-06-08 16:09] LABS: BASOPHILS % (AUTO) 0.7 % (0.0-2.0); EOSINOPHILS % (AUTO) 1.1 % (0.0-4.0); HEMATOCRIT 28.3 % (36-54); HEMOGLOBIN 9.1 g/dL (14.0-18.0); LYMPHOCYTES # (AUTO) 0.4 K/uL (1.0-5.5); LYMPHOCYTES % (AUTO) 9.1 % (20.5-51.5); MEAN CORPUSCULAR HEMOGLOBIN 28 pg (27-31); MEAN CORPUSCULAR HGB CONC 32 % (32-36); MEAN CORPUSCULAR VOLUME 88 fL (79.0-98.0); MONOCYTES # (AUTO) 0.3 K/uL (0.0-1.0); MONOCYTES % (AUTO) 5.8 % (1.7-9.3); NEUTROPHILS # (AUTO) 3.7 K/uL (1.8-7.7); NEUTROPHILS % (AUTO) 83.3 % (40.0-70.0); RED BLOOD CELL COUNT(AUTO) 3.22 MIL/uL (4.2-6.2); WHITE BLOOD COUNT (AUTO) 4.4 K/uL (4.8-10.8)
--- NOTE | 2017-06-08 16:30 | NUR ---
# 24 gauge angiocath placed to RH. Use of asceptic technique. Opsite placed over site. Blood return noted. Blood for lab drawn from Flushed with 10 cc of normal saline. No evidence of infiltration noted. Patient tolerated well.
[2017-06-08 16:36] LABS: INR 1.2 (0.80-1.20)
[2017-06-08 16:47] LABS: PLATELET COUNT (AUTO) 57 K/uL (130-430)
--- NOTE | 2017-06-08 17:00 | NUR ---
CONTINUINING TO MONITOR NO ACUTE DISTRESS NOTED.
[2017-06-08 17:02] LABS: CALCIUM 10.3 mg/dL (8.4-11.0); CREATININE 6.69 mg/dL (0.55-1.30); POTASSIUM 4.5 mmol/L (3.5-5.1)
[2017-06-08 17:07] LABS: ALBUMIN 1.8 g/dL (3.4-4.8); TOTAL BILIRUBIN 0.4 mg/dL (0.0-1.0)
--- NOTE | 2017-06-08 17:40 | NUR ---
Patient will be admitted to care of . Admitted to TELEMETRY unit. Will go to room 101A. Belongings list completed. Summary report printed. Report will be given at bedside.
--- NOTE | 2017-06-08 17:50 | NUR ---
ADMISSION NOTE Received patient from ER via juni, received report from connie GARCIA. Patient admitted with diagnosis of elevated troponin. Patient oriented to hospital routine, call light, toileting and safety-patient verbalized understanding.
--- NOTE | 2017-06-08 17:55 | NUR ---
Note undone in EDM - 06/08/17 at 2007 by MATTI PT PRESENTS TO ED FROM HOME C/O GEN.WEAKNESS. PT H/O ESRD,DM,HTN AND IS AMBULATED. PT HAS NO ACUTE RESP DISTRESS NOTED. INITIAL ASSESS SLIGHT BRADYCARDIA. PT'S HR IMPROVED AFTER MONITOR ON GUAJIT.WILL CONTINUE TO MONITOR. PT DENIES CP OR SOB.
[2017-06-08 18:00] VITALS: BP_SYST 137
[2017-06-08] MEDS ORDERED: FLU VACC QS 2017-18(36MOS+)/PF 0.5 ML/SYR SYRINGE I.M. PRN (18:15)
--- NOTE | 2017-06-08 18:59 | NUR ---
1800- PT IN BED AWAKE, SLIGHTLY DROWSY, REFUSING TO ANSWER QUESTION BUT AT BEDSIDE. REFUSED TO CHECK HIS O2 SAT. HAS BOWEL MOVEMENT, CLEANED AND MAKE COMFORTABLE IN BED. ORIENTED TO CALL LIGHT USE. 1810- PICTURE TAKEN ON THE RIGHT HEEL. TRIED TO MEASURE WOUNDS BUT PT IS REFUSING. COVERED WITH FOAM DRESSING. 1830- IN BED, DINNER TRAY AT BEDSIDE. TRYING TO FEED PT. PT AND REFUSES FLU SHOT AT THIS TIME. ALL NEEDS MEET. WILL ENDORSE
--- NOTE | 2017-06-08 19:10 | NUR ---
PM Notes Patient on bed awake, alert with confusion and verbally responsive noted. No sign of respiratory distress and no complain of pain noted. Saline Lock on right hand gauge 24 is intact with no sign of infiltration noted. Will continue to monitor. Call light within reach.
[2017-06-08] MEDS ORDERED: INSULIN DEGLUDEC 100 UNIT SQ SCH (21:00)
[2017-06-08] MEDS ORDERED: INSULIN GLARGINE 100 UNITS/ML 10 ML VIAL SUBCUT SCH (21:00)
[2017-06-08] MEDS ORDERED: INSULIN ASPART 100 UNITS/ML, 10 ML VIAL (NovoLOG) SUBCUT PRN (21:45)
--- NOTE | 2017-06-08 22:05 | NUR ---
Rounds Notes Patient on bed sleeping noted. No sign of respiratory distress and no complain of pain or discomfort noted. Will continue to monitor. Call light within reach.
[2017-06-08] MEDS: CARVEDILOL 25 MG TABLET (COREG) PO SCH (23:25)
[2017-06-09] VITALS (7 sets, daily range): BP systolic 108–163
[2017-06-09] MEDS ORDERED: hydrALAZINE HCL 25 MG TABLET PO PRN
--- NOTE | 2017-06-09 00:12 | NUR ---
Rounds Notes Patient on bed sleeping covered with blanket noted. No sign of respiratory distress and no complain of pain or discomfort noted. Will continue to monitor. Call light within reach.
--- NOTE | 2017-06-09 02:06 | NUR ---
Rounds Notes Patient on bed sleeping covered with blankets noted. No sign of respiratory distress and no complain of pain or discomfort noted. Will continue to monitor. Call light within reach.
--- NOTE | 2017-06-09 04:01 | NUR ---
Rounds Notes Patient on bed sleeping noted. No sign of respiratory distress and no complain of pain noted. Will continue to monitor. Call light within reach.
--- NOTE | 2017-06-09 05:28 | NUR ---
paged paged for Dr Munguia, dialed . s/w Geno.
--- NOTE | 2017-06-09 05:51 | NUR ---
Consultation(s) Paged Reason for consultation: Cardio Was consult called: Yes Person who was notified: [place] Consulting Physician: Dr Dominguez; Dr Raya is on-call Fish And Wildlife Warden Fish And Wildlife Warden Specialty: Cardiology Ordered By: Dr Munguia Reason for consultation: Renal Was consult called: Yes Person who was notified: [place] Consulting Physician: Dr Bansal; Dr Goode is on-call Fish And Wildlife Warden Fish And Wildlife Warden Specialty: Nephrology Ordered By: Dr Munguia
[2017-06-09] MEDS: INSULIN ASPART 100 UNITS/ML, 10 ML VIAL (NovoLOG) SUBCUT SCH ×3 (06:27→21:15)
[2017-06-09] MEDS: TACROLIMUS ANHYDROUS 1 MG CAPSULE (PROGRAF) PO SCH (06:29)
--- NOTE | 2017-06-09 06:30 | NUR ---
Closing Notes Patient on bed awake, alert and verbally responsive with no sign of respiratory distress and no complain of pain noted. No s/sx. of hypo/hyperglycemia noted. All needs attended by staff. Call light within reach.
[2017-06-09 08:51] LABS: CALCIUM 9.6 mg/dL (8.4-11.0); CREATININE 7.17 mg/dL (0.55-1.30); POTASSIUM 4.7 mmol/L (3.5-5.1)
[2017-06-09] MEDS ORDERED: LACTOBACILLUS RHAMNOSUS GG PO SCH (09:00)
[2017-06-09] MEDS ORDERED: PREDNISONE 10 MG TABLET PO SCH (09:00)
[2017-06-09] MEDS ORDERED: SODIUM BICARBONATE 325 MG TABLET PO SCH (09:00)
[2017-06-09] MEDS: VITAMIN B COMPLEX 1 CAP/TAB PO SCH (09:00)
[2017-06-09] MEDS ORDERED: NIFEDIPINE 30 MG TAB.ER.24 PO SCH (09:00)
[2017-06-09] MEDS ORDERED: COMMUNICATION ORDER XX ONE (09:00)
[2017-06-09] MEDS ORDERED: MAGNESIUM OXIDE 400 MG TABLET PO SCH (09:00)
[2017-06-09] MEDS ORDERED: TACROLIMUS ANHYDROUS 1 MG CAPSULE (PROGRAF) PO SCH (09:00)
[2017-06-09] MEDS ORDERED: ETHAMBUTOL 400 MG PO SCH (09:00)
[2017-06-09] MEDS ORDERED: FAMOTIDINE 20 MG TABLET PO SCH (09:00)
[2017-06-09] MEDS ORDERED: ASCORBIC ACID 500 MG TABLET PO SCH (09:00)
[2017-06-09] MEDS ORDERED: CALCITRIOL 0.25 MCG CAPSULE PO SCH (09:00)
[2017-06-09] MEDS: PREDNISONE 20 MG TABLET PO SCH (11:25)
[2017-06-09] MEDS: MEGESTROL ACETATE 40 MG TABLET PO SCH (11:26)
[2017-06-09] MEDS: CHOLECALCIFEROL (VITAMIN D3) 2,000 UNIT TABLET PO SCH ×2 (11:26→21:17)
[2017-06-09] MEDS: CARVEDILOL 25 MG TABLET (COREG) PO SCH ×2 (11:27→21:40)
--- NOTE | 2017-06-09 14:20 | NUR ---
refuse morning vitals 0900am
[2017-06-09] MEDS: ACETAMINOPHEN 325 MG TABLET PO PRN ×3 (15:51→17:32)
--- NOTE | 2017-06-09 19:30 | NUR ---
paged paged for Dr Munguia, dialed . s/w Sebastian.
[2017-06-09] MEDS ORDERED: HYDROcodone/ACETAMIN 5-325 MG TAB (NORCO/ VICODIN) PO ONE (19:45)
[2017-06-09] MEDS ORDERED: LORazepam 1 MG TABLET PO ONE (19:45)
--- NOTE | 2017-06-09 20:00 | NUR ---
PM Notes Received patient on bed awake, alert with confusion, unable to stay still and verbally responsive on Hemodialysis at this time with Dialysis nurse at bedside monitoring the patient noted. No sign of respiratory distress and complained of generalized body pain, paged Dr. Munguia for pain medication and anxiety medication, waiting for call back. Will continue to monitor. Call light within reach.
[2017-06-09] MEDS ORDERED: HYDROcodone/ACETAMIN 5-325 MG TAB (NORCO/ VICODIN) ONE (20:06)
[2017-06-09] MEDS ORDERED: LORazepam 1 MG TABLET ONE (20:07)
--- NOTE | 2017-06-09 20:08 | NUR ---
New Order Dr. Munguia called back and spoke to him. Reported the condition of the patient complaining of generalized body pain and unable to stay still while on Dialysis. Told Dr. Munguia that the patient has an order of pain and anxiety medication prior to dialysis. Dr. Munguia will input the order.
--- NOTE | 2017-06-09 20:47 | NUR ---
Pt. alert,confused, uncooperative,call light in reach, pt. c/o of gereralized pain, refused pt. care and to be reposition,very poor appetite, he likes nepro but solid food, pt on HD at this time, pt made aware of it. MD aware of pt very poor appetite.
[2017-06-09] MEDS: TACROLIMUS ANHYDROUS 0.5 MG CAPSULE (PROGRAF) PO SCH (21:17)
[2017-06-09] MEDS: cloNIDine HCL 0.1 MG TABLET PO PRN (21:41)
--- NOTE | 2017-06-09 22:10 | NUR ---
Rounds Notes Patient on bed, sleeping and covered him with blanket. No sign of respiratory distress and no sign of pain or discomfort noted. Will continue to monitor. Call light within reach.
[2017-06-10] VITALS (7 sets, daily range): BP systolic 91–158
--- NOTE | 2017-06-10 00:12 | NUR ---
Rounds Notes Patient on bed, sleeping noted. No sign of respiratory distress and no complain of pain noted. Elevated right heel with 1 pillow. Will continue to monitor. Call light within reach.
--- NOTE | 2017-06-10 02:06 | NUR ---
Rounds Notes Patient still sleeping noted. No sign of respiratory distress and no complain of pain noted. Will continue to monitor. Call light within reach.
[2017-06-10] MEDS: ACETAMINOPHEN 325 MG TABLET PO PRN (03:14)
--- NOTE | 2017-06-10 04:08 | NUR ---
Rounds Notes Patient on bed sleeping noted. No sign of respiratory distress and no complain of pain noted. Will continue to monitor. Call light within reach.
[2017-06-10] MEDS: TACROLIMUS ANHYDROUS 1 MG CAPSULE (PROGRAF) PO SCH ×2 (06:26→06:32)
[2017-06-10] MEDS: INSULIN ASPART 100 UNITS/ML, 10 ML VIAL (NovoLOG) SUBCUT SCH ×4 (06:30→21:25)
--- NOTE | 2017-06-10 06:47 | NUR ---
Closing Notes Patient on bed, awake, alert with confusion and verbally responsive noted. No sign of respiratory distress and no complain of pain notes. All needs attended and met by staff. Call light within reach.
--- NOTE | 2017-06-10 07:20 | NUR ---
INITIAL NOTE RECEIVED PATIENT FROM [employer] JOINTER NURSE, PATIENT RESTING IN BED, NO SIGNS OF DISTRESS NOTED, BREATHING IS EVEN AND UNLABORED, ASSESSMENT COMPLETE, PATIENT HAS IV IN RIGHT HAND, SALINE LOCK FLUSHES WELL, PATIENT HAS PERM-A-CATH ON RIGHT UPPER CHEST FOR DIALYSIS ACCESS, PER [employer] JOINTER NURSE, PATIENT HAD DIALYSIS LAST NIGHT 2.1 L REMOVED, WOUND NOTED ON RIGHT HEEL, DRESSING DRY AND INTACT, CALL [place] LEFT NEXT TO PATIENT'S HAND, BED IN LOWEST POSITION, SIDE RAILS UP, BED ALARM ON, FALL PRECAUTIONS IN PLACE, WILL CONTINUE TO MONITOR.
[2017-06-10 07:31] LABS: CALCIUM 9.9 mg/dL (8.4-11.0); CREATININE 5.48 mg/dL (0.55-1.30); POTASSIUM 3.9 mmol/L (3.5-5.1)
[2017-06-10 07:46] LABS: HEMOGLOBIN 8.9 g/dL (14.0-18.0); MEAN CORPUSCULAR HEMOGLOBIN 28 pg (27-31); MEAN CORPUSCULAR HGB CONC 33 % (32-36); PLATELET COUNT (AUTO) 66 K/uL (130-430); RED BLOOD CELL COUNT(AUTO) 3.12 MIL/uL (4.2-6.2); RED CELL DISTRIBUTION WIDTH 17.1 % (9.0-15.0); WHITE BLOOD COUNT (AUTO) 3.7 K/uL (4.8-10.8)
[2017-06-10 07:49] LABS: TOTAL IRON BIND. CAPACITY 79 ug/dL (250-450)
[2017-06-10] MEDS: PREDNISONE 20 MG TABLET PO SCH (08:11)
[2017-06-10] MEDS: CHOLECALCIFEROL (VITAMIN D3) 2,000 UNIT TABLET PO SCH ×2 (08:11→21:18)
[2017-06-10] MEDS: MEGESTROL ACETATE 40 MG TABLET PO SCH (08:11)
[2017-06-10] MEDS: VITAMIN B COMPLEX 1 CAP/TAB PO SCH (08:11)
[2017-06-10] MEDS: CARVEDILOL 25 MG TABLET (COREG) PO SCH ×2 (08:12→21:19)
[2017-06-10] MEDS: HYDROcodone/ACETAMIN 5-325 MG TAB (NORCO/ VICODIN) PO SCH (08:13)
--- NOTE | 2017-06-10 08:16 | NUR ---
MEDICATIONS PATIENT RECEIVED MORNING MEDICATIONS, PATIENT TOLERATED WELL, NO OTHER NEEDS AT THIS TIME, WILL CONTINUE TO MONITOR, FALL PRECAUTIONS IN PLACE, WILL CONTINUE TO MONITOR.
--- NOTE | 2017-06-10 08:25 | NUR ---
Nutrition Update Mark Scale 11 noted. Pt admitted for Elevated Troponin Diet: Regular diet BMI: 18 kg/m2 RD to follow per nutrition care standards.
[2017-06-10 08:29] LABS: MEAN CORPUSCULAR VOLUME 86 fL (79.0-98.0)
--- NOTE | 2017-06-10 09:20 | NUR ---
RN ROUNDS PATIENT RESTING IN BED, CURRENTLY GETTING 2D ECHO, PATIENT IN STABLE CONDITION, WILL CONTINUE TO MONITOR, FALL PRECAUTIONS IN PLACE.
[2017-06-10 11:25] LABS: BAND % (MANUAL) 15 % (0-6)
[2017-06-10 11:26] LABS: ATYPICAL LYMPHOCYTES % 0 % (0-0); BASOPHILS % (MANUAL) 0 % (0-2); EOSINOPHILS % (MANUAL) 2 % (0-7); LYMPHOCYTES % (MANUAL) 14 % (20-46); MONOCYTES % (MANUAL) 10 % (0-11)
--- NOTE | 2017-06-10 11:30 | NUR ---
RN ROUNDS PATIENT LYING IN BED, AT BESIDE, INFORMED THAT HOME MEDICATION COENZYME 100MG IS NEEDED FOR PATIENT TO HAVE IN HOSPITAL, STATED SHE WILL BRING IN MEDICATION LATER TODAY, NO OTHER NEEDS AT THIS TIME, FALL PRECAUTIONS IN PLACE, WILL CONTINUE TO MONITOR.
--- NOTE | 2017-06-10 12:47 | NUR ---
RN ROUNDS PATIENT RESTING IN BED, PATIENT JUST FINISHED LUNCH 80% FINISHED, NO SIGNS OF DISTRESS NOTED, WILL CONTINUE TO MONITOR PATIENT, FALL PRECAUTIONS IN PLACE.
--- NOTE | 2017-06-10 14:27 | NUR ---
RN ROUNDS PATIENT SITTING IN BED, SON AT BEDSIDE, NO COMPLAINTS OF PAIN OR DISCOMFORT, WILL CONTINUE TO MONITOR, FALL PRECAUTIONS IN PLACE
--- NOTE | 2017-06-10 15:09 | NUR ---
Dietitian Recommendation Recommend continuing Renal Fluid Restriction 1000ml Cardiac Mechanical Soft w/ Novasource Renal BID per MD orders. Oral supplement will provide 950 kcal and 43 gm Protein daily. Please see Nutrition Assessment for details.
--- NOTE | 2017-06-10 16:22 | NUR ---
RN ROUNDS PATIENT IN STABLE CONDITION, AT BEDSIDE, NO SIGNS OF DISTRESS NOTED, WILL CONTINUE TO MONITOR PATIENT, FALL PRECAUTIONS IN PLACE.
--- NOTE | 2017-06-10 17:35 | NUR ---
ACCUCHECK PATIENT REFUSED ACCUCHECK, WHEN ATTEMPTING TO CHECK SUGAR PATIENT GETS AGGRESSIVE, IS AT BEDSIDE, STATED WE SHOULD NOT TRY NOW BECAUSE PATIENT GETS VERY AGITATED, WILL CONTINUE TO MONITOR, FALL PRECAUTIONS IN PLACE.
[2017-06-10] MEDS ORDERED: LORazepam 1 MG TABLET PO SCH (18:00)
--- NOTE | 2017-06-10 18:44 | NUR ---
CLOSING NOTE PATIENT IS RESTING IN BED, AT BEDSIDE, PATIENT STATED HE WAS HAVING PAIN, CALLED AND HE ORDERED FOR PATIENT TO HAVE TYLENOL 650MG Q6H FOR PAIN, WILL INPUT ORDER, PATIENT IN STABLE CONDITION, NO SIGNS OF DISTRESS NOTED, BREATHING IS EVEN AND UNLABORED, ALL NEEDS MET, WILL ENDORSE PATIENT TO VIDEO NETWORK ENGINEER NURSE, BED IN LOWEST POSITION, SIDE RAILS UP, FALL PRECAUTIONS IN PLACE
[2017-06-10] MEDS ORDERED: ACETAMINOPHEN 650 MG/20.3 ML UDC PO PRN (18:45)
--- NOTE | 2017-06-10 19:26 | NUR ---
WOUND EVALUATION: Wound Consult received from Dr. Munguia. Thank you, Dr. Munguia, for the consult. Patient received in a [place] Bed with an IsoFlex STERLING mattress (low air-loss therapy initiated) awake, drowsy, does not attempt to communicate verbally, but tries to turn onto his back during assessment. Patient is unable to turn in bed independently. Mark Score is a 13. 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 Recent labs: WBC 3.7, RBC 3.12, hemoglobin 8.9, hematocrit 27.0, platelets 66, BUN 31, creatinine 5.48, GFR 14, glucose 170, PT 13.0, PTT 21.7. Intrinsic factors that delay wound healing: Diabetes Mellitus, severe Protein Malnutrition, Chronic Anemia, Chronic Encephalopathy. Extrinsic factors that delay wound healing: Decreased mobility. Microbiology: MRSA Screen results negative. Wound Assessment: 1) Right Medial Posterior Heel: Acute on chronic pressure ulcer of prior unknown stage, present on admission. Wound bed is 60% dull red tissue, 25% brown slough, 15% yellow slough. No odor, scant yellow purulent drainage. Gifty-wound pink and macerated. Measures 3.0 cm x 3.7 cm. Recommend: Cleanse wound with normal saline. Put moisture barrier cream onto periwound. Apply Venelex ointment onto wound bed. Cover with foam dressing. Wrap with Joanna wrap and secure with tape. 2) Left Medial Posterior Heel: [place] and brown discoloration, present on admission. No odor, no drainage. Gifty-wound intact. Tissue is soft. Measures 3.5 cm x 1.5 cm. Recommend: Elevate, offload and float bilateral heels with pillows lengthwise at all times. Also recommend: Reposition patient side to side only every 2 hours with pillow support, and off-load pressure areas with pillows for pressure re-distribution. Offload, elevate and float bilateral heels with Heelift Boots (Cut boots to allow heels to float freely within boots). Perform skin care and monitor skin integrity Q shift. Use moisture barrier cream on buttocks and other moisture susceptible areas QID and as needed for soiling. Maintain patient on a low air-loss mattress.
--- NOTE | 2017-06-10 19:59 | NUR ---
initial notes: pt is resting. no sign of distress. pt wakes up when seen by wound care nurse becky. wound assessment done and reposition pt. pt is confused. came in and at bedside. explained to plan of care. she verbalized understanding. stefany light in reach. lowest bed position. bed alarm on. will monitor.
[2017-06-10] MEDS: BALSAM PERU/CASTOR OIL 60 GM OINT...G. TP SCH (20:00)
[2017-06-10] MEDS ORDERED: BALSAM PERU/CASTOR OIL 60 GM OINT...G. TP PRN (20:00)
[2017-06-10] MEDS: TACROLIMUS ANHYDROUS 0.5 MG CAPSULE (PROGRAF) PO SCH (21:19)
--- NOTE | 2017-06-10 22:18 | NUR ---
notes: pt is awake. confused. no distress. wound dressing done to right heel and float both heel to pillow. reposition. call light in reach. bed alarm on. will monitor.
--- NOTE | 2017-06-11 00:31 | NUR ---
NOTES: PT IS TRANSFERRED TO BED WITH AIR MATTRESS. TOLERATE WELL. POSITION. CALL LIGHT IN REACH. BED ALARM ON. WILL MONITOR.
--- NOTE | 2017-06-11 02:03 | NUR ---
NOTES: SLEEPING. NO PAIN. NO SOB. REPOSITION. KEFT HEEL FLOAT ON PILLOW. SIDE RAILS UP. WILL MONITOR.
[2017-06-11 04:09] VITALS: BP_SYST 147
--- NOTE | 2017-06-11 04:29 | NUR ---
NOTES: PT IS VERY CONFUSED AND SHOUTING. TRY TO GET OUT OF BED. SECURITY CAME IN AND CALM THE PT. PT IS ALSO SOILED WITH BM. CLEAN, CHANGE CHUX AND GOWN. REPOSITION. BED ALARM IS ON. SIDE RAILS UP. WILL MONITOR.
[2017-06-11 06:12] LABS: BILIRUBIN,URINE NEGATIVE (NEGATIVE); CLARITY/URINE CLEAR (CLEAR); COLOR,URINE YELLOW (YELLOW); GLUCOSE,URINE 1+ (NEGATIVE); KETONES,URINE NEGATIVE (NEGATIVE); LEUKOCYTE ESTERASE ,URINE NEGATIVE (NEGATIVE); NITRITE, URINE NEGATIVE (NEGATIVE); PROTEIN URINE 2+ (NEGATIVE); UROBILINOGEN,URINE 0.2 (0.2-1.0)
[2017-06-11 06:13] LABS: BLOOD, URINE TRACE (NEGATIVE)
[2017-06-11 06:17] LABS: BACTERIA,URINE RARE /HPF (None Seen); MUCUS,URINE None Seen /LPF (None Seen); RBC,URINE 0-3 /HPF (0-3); WBC,URINE 0-3 /HPF (0-3)
[2017-06-11] MEDS: TACROLIMUS ANHYDROUS 1 MG CAPSULE (PROGRAF) PO SCH (06:20)
[2017-06-11] MEDS: INSULIN ASPART 100 UNITS/ML, 10 ML VIAL (NovoLOG) SUBCUT SCH ×4 (06:22→21:15)
--- NOTE | 2017-06-11 06:40 | NUR ---
CLOSING: pt is awake, alert. confused. no pain. pt agree for blood sugar check-265, covered with schedule novolog. pt took his am medication. needs attended. call light in reach. side rails up. lowest bed position. bed alarm on. will given bedside report to am rn.
[2017-06-11 07:49] LABS: EOSINOPHILS % (AUTO) 1.1 % (0.0-4.0); HEMATOCRIT 23.1 % (36-54); HEMOGLOBIN 7.4 g/dL (14.0-18.0); LYMPHOCYTES # (AUTO) 0.6 K/uL (1.0-5.5); MEAN CORPUSCULAR HEMOGLOBIN 28 pg (27-31); MEAN CORPUSCULAR HGB CONC 32 % (32-36); MEAN CORPUSCULAR VOLUME 87 fL (79.0-98.0); MONOCYTES # (AUTO) 0.3 K/uL (0.0-1.0); MONOCYTES % (AUTO) 7.8 % (1.7-9.3); NEUTROPHILS # (AUTO) 3.2 K/uL (1.8-7.7); PLATELET COUNT (AUTO) 91 K/uL (130-430); RED BLOOD CELL COUNT(AUTO) 2.67 MIL/uL (4.2-6.2); RED CELL DISTRIBUTION WIDTH 17.1 % (9.0-15.0); WHITE BLOOD COUNT (AUTO) 4.1 K/uL (4.8-10.8)
[2017-06-11 07:57] LABS: CALCIUM 10.6 mg/dL (8.4-11.0); CREATININE 7.07 mg/dL (0.55-1.30); POTASSIUM 4.1 mmol/L (3.5-5.1)
[2017-06-11 08:00] VITALS: BP_SYST 142
--- NOTE | 2017-06-11 08:00 | NUR ---
A/OX2, WITH PERIODS OF CONFUSION AND AGITATION. IV IN RIGHT HAND, SALINE LOCK , #24. PATIENT HAS PERM-A-CATH ON RIGHT UPPER CHEST FOR DIALYSIS ACCESS, WOUND NOTED ON RIGHT HEEL, DRESSING DRY AND INTACT. INSTRUCTED PATIENT NUT THREADER LIGHT, WHICH IS I PLACE, FOR NEEDS, BED LOCKED AT THE IN LOWEST POSITION, SIDE RAILS UP X3, BED ALARM ON, FALL PRECAUTIONS IN PLACE, WILL CONTINUE TO MONITOR.
--- NOTE | 2017-06-11 08:09 | NUR ---
Nutrition Note Nutrition Consult (Wound) received 06/10/171947. Pt was seen and assessed by RD on 06/10/17. Please refer to Nutrition Assessment for details.
[2017-06-11 08:13] LABS: NEUTROPHILS % (AUTO) 76.1 % (40.0-70.0)
[2017-06-11] MEDS: BALSAM PERU/CASTOR OIL 60 GM OINT...G. TP SCH (09:00)
[2017-06-11] MEDS: COENZYME Q10 PO SCH (09:00)
[2017-06-11] MEDS: CHOLECALCIFEROL (VITAMIN D3) 2,000 UNIT TABLET PO SCH ×2 (09:14→20:55)
[2017-06-11] MEDS: MEGESTROL ACETATE 40 MG TABLET PO SCH (09:17)
[2017-06-11] MEDS: VITAMIN B COMPLEX 1 CAP/TAB PO SCH (09:17)
[2017-06-11] MEDS: PREDNISONE 20 MG TABLET PO SCH (09:17)
--- NOTE | 2017-06-11 10:25 | NUR ---
PAGE CALLED FOR DR. SANCHEZ. SPOKE TO DEMIAN, DIALED [phone].
--- NOTE | 2017-06-11 10:48 | NUR ---
2ND PAGE CALLED FOR DR. SANCHEZ (DR. CHANEL IS PIT SLAGMAN). SPOKE TO DEMIAN, DIALED [phone].
[2017-06-11 11:23] VITALS: BP_SYST 131
--- NOTE | 2017-06-11 12:03 | NUR ---
DC Planning: Received call from Estelita, dialysis nurse to let me know that after pt. dc from [facility] the pt. will go to [facility] in [place] # [phone], address [address] The chair time is on MWF at 1:30pm to 5 pm. Estelita will notify Ashley, pt's spouse.
[2017-06-11] MEDS: CARVEDILOL 25 MG TABLET (COREG) PO SCH ×2 (13:53→20:56)
--- NOTE | 2017-06-11 14:28 | NUR ---
IV #22 IS STARTED AT LEFT FA, #22, SL. IV SITE INTACT AND PATENT.
--- NOTE | 2017-06-11 15:18 | NUR ---
PHYSICAL THERAPY CO-SIGN The Physical Therapy Progress Notes documented by Pipe Line Inspector have been reviewed. I CONCUR W/RECRUITING TEAM LEAD NOTE; CONT PER TX PLAN Reviewed/Co-Signed by: Sharon Thomas PT Documentation Done by: JOSE SMITH RECRUITING TEAM LEAD Addendum: 06/11/17 at 1518 by Sharon Thomas PT Amended: Links added.
--- NOTE | 2017-06-11 17:32 | NUR ---
PATIENT BLOOD SUGAR 195. 2 UNITS OF NOVOLOG WILL BE GIVEN PER SLIDING SCALE.
--- NOTE | 2017-06-11 18:38 | NUR ---
PATIENT'S BEING FED BY WITH SUPERVISION OF RN. NO SIGNS OF ACUTE DISTRESS NOTED.
[2017-06-11 20:00] VITALS: BP_SYST 155
--- NOTE | 2017-06-11 20:00 | NUR ---
Initial Note Received awake, alert and oriented with periods of confusion. No SOB noted. Denies any n/v at this time. Sinus Rhythm on monitor. Permacath right chest intact and dry. Right heel dressing clean and intact. Elevated heels. Bedrest. Repositioned. Call light within reach. Kept clean, dry and comfortable.
[2017-06-11] MEDS: TACROLIMUS ANHYDROUS 0.5 MG CAPSULE (PROGRAF) PO SCH (20:56)
[2017-06-11] MEDS: ACETAMINOPHEN 325 MG TABLET PO PRN (20:57)
--- NOTE | 2017-06-11 21:00 | NUR ---
RN Note Due meds given along with pain medication as requested. Tolerated meds and food well. Lenin at the bedside. Needs attended. Kept warm and comfortable.
--- NOTE | 2017-06-11 21:35 | NUR ---
RN Note-Blood Sugar Paged Dr. Munguia around 2131 and he called back. Notified him of patient's blood sugar of 410 and 434, Sliding scale coverage given. No signs and symptoms of hyperglycemia. Awake, alert and oriented. Lenin at the bedside. He's eating enchilada bought by his currently. Patient also said that he's been eating a lot today. MD aware and no further orders made. Charge nurse aware.
--- NOTE | 2017-06-11 22:00 | NUR ---
RN Note Awake and alert. No complaints at this time. Kept warm.
[2017-06-11] MEDS: cloNIDine HCL 0.1 MG TABLET PO PRN (23:26)
[2017-06-12] VITALS (7 sets, daily range): BP systolic 126–177
--- NOTE | 2017-06-12 | NUR ---
RN Note Sleeping at this time. No distress noted.
--- NOTE | 2017-06-12 02:00 | NUR ---
RN Note Patient sleeping comfortably in bed. Arousable. Repositioned. No SOB noted.
--- NOTE | 2017-06-12 06:02 | NUR ---
End Note Afebrile. Hypertensive all night. Medicated for HTN twice all night. No complain of SOB or n/v throughout the night. Medicated for mild pain one time last night. Repositioned. Permacath in place. Last dialysis was Saturday with 2L output. Blood sugar last night was [address] Munguia was aware with no orders given. Sinus Rhythm on monitor. Needs attended. Kept warm and comfortable.
[2017-06-12] MEDS: TACROLIMUS ANHYDROUS 1 MG CAPSULE (PROGRAF) PO SCH (06:12)
[2017-06-12] MEDS: INSULIN ASPART 100 UNITS/ML, 10 ML VIAL (NovoLOG) SUBCUT SCH ×4 (06:23→21:00)
--- NOTE | 2017-06-12 07:00 | NUR ---
Dialysis nurse Dialysis nurse Estelita called and asked if there's an order for HD today. No HD order for the patient for today. Will endorse to AM shift. Estelita's number is [phone]. Endorsed.
--- NOTE | 2017-06-12 07:30 | NUR ---
AM ROUNDS: PATIENT AWAKE DURING ROUNDS. BEDSIDE REPORT GIVEN BY NIGHT NURSE KERRY. CALL LIGHT WITH IN REACH. BED AT LOWEST POSITION AND LOCKED. CONTINUE TO MONITOR.
--- NOTE | 2017-06-12 07:46 | NUR ---
CONSULT HEMATOLOGY ANEMIA DR BAINS [phone] S/W LEAH LAU @ 2200
[2017-06-12] MEDS ORDERED: LORazepam 1 MG TABLET PO SCH (09:00)
[2017-06-12] MEDS: COENZYME Q10 PO SCH (09:00)
[2017-06-12] MEDS: CARVEDILOL 25 MG TABLET (COREG) PO SCH ×2 (09:00→20:42)
[2017-06-12] MEDS: VITAMIN B COMPLEX 1 CAP/TAB PO SCH ×2 (09:00→13:37)
[2017-06-12 09:15] LABS: CALCIUM 11.5 mg/dL (8.4-11.0); POTASSIUM 3.2 mmol/L (3.5-5.1)
[2017-06-12 09:21] LABS: BASOPHILS # (AUTO) 0.1 K/uL (0.0-0.2); BASOPHILS % (AUTO) 1.7 % (0.0-2.0); EOSINOPHILS # (AUTO) 0.1 K/uL (0.0-0.4); EOSINOPHILS % (AUTO) 1.8 % (0.0-4.0); HEMATOCRIT 25.5 % (36-54); HEMOGLOBIN 8.4 g/dL (14.0-18.0); LYMPHOCYTES # (AUTO) 0.4 K/uL (1.0-5.5); LYMPHOCYTES % (AUTO) 9.2 % (20.5-51.5); MEAN CORPUSCULAR HEMOGLOBIN 29 pg (27-31); MEAN CORPUSCULAR HGB CONC 33 % (32-36); MEAN CORPUSCULAR VOLUME 87 fL (79.0-98.0); MONOCYTES # (AUTO) 0.2 K/uL (0.0-1.0); MONOCYTES % (AUTO) 4.1 % (1.7-9.3); NEUTROPHILS # (AUTO) 3.5 K/uL (1.8-7.7); NEUTROPHILS % (AUTO) 83.2 % (40.0-70.0); PLATELET COUNT (AUTO) 116 K/uL (130-430); RED BLOOD CELL COUNT(AUTO) 2.93 MIL/uL (4.2-6.2); WHITE BLOOD COUNT (AUTO) 4.3 K/uL (4.8-10.8)
[2017-06-12 09:35] LABS: CREATININE 8.13 mg/dL (0.55-1.30)
[2017-06-12] MEDS: CHOLECALCIFEROL (VITAMIN D3) 2,000 UNIT TABLET PO SCH ×2 (09:49→20:43)
[2017-06-12] MEDS: MEGESTROL ACETATE 40 MG TABLET PO SCH (09:49)
[2017-06-12] MEDS: PREDNISONE 20 MG TABLET PO SCH (09:49)
[2017-06-12] MEDS: HYDROcodone/ACETAMIN 5-325 MG TAB (NORCO/ VICODIN) PO SCH (09:50)
--- NOTE | 2017-06-12 10:01 | NUR ---
AMRIK ROUNDS: PATIENT SEEN BY DR BAINS AND WILL REVIEW ABOUT THE TRANSFUSION,LATEST HGB=8.4.
--- NOTE | 2017-06-12 10:10 | NUR ---
DISCHARGE PLANNING Faxed SNF referral to [phone] Per CM note family preference. Will follow up. Addendum: 06/12/17 at 1254 by Nona Mueller DP Spoke with [facility] liaison [phone] confirmed faxed referral was received, patient accepted and currently pending insurance auth. Once auth has been received will give bed assignment. CM was updated.
--- NOTE | 2017-06-12 10:31 | NUR ---
PAGED: SPOKE WITH DR RUTH AND RELAYED LATEST HGB=8.4,WITH ORDERS CANCELLED TRANSFUSION FOR TODAY.
--- NOTE | 2017-06-12 12:00 | NUR ---
PT NOTES CHART REVIEWED AND CLEARED FOR PT BY RN. PATIENT IN SEMIFOWLER POSITION RESTING. UPON ENTERING PATIENT APPEARS CONFUSED STATING, "I'M MIDDLE OF DIALYSIS" PER PATIENT. DESPITE ATTEMPTS TO REORIENT PATIENT AND INTRODUCING SELF, PATIENT DECLINES PARTICIPATION IN THERAPY, WILL FOLLOW UP PATIENT AT LATER TIME. (1040AM). RETURNED TO PATIENTS ROOM ABOUT 1 HOUR LATER, PATIENT IN SEMIFOWLER POSITION RESTING WITH RN AT BEDSIDE ATTEMPTING TO TAKE PATIENTS BLOOD SUGAR READING. PATIENT APPEARS IRRITABLE AT THIS TIME AND ATTEMPTING TO GET OOB. DESPITE MUCH ATTEMPTS/EDUCATION/MOTIVATION, PATIENT IS DECLINING PARTICIPATION IN THERAPY AT THIS TIME. LEFT IN CARE OF RN AND KITCHEN LEAD. WILL FOLLOW UP PATIENT TOMORROW IF POSSIBLE. PVEx2 Addendum: 06/12/17 at 1339 by Elidia Chaudhry PT PHYSICAL THERAPY CO-SIGN The Physical Therapy Progress Notes documented by Patient Relations Director have been reviewed. Reviewed/Co-Signed by: Elidia Chaudhry, MIKO Documentation Done by: Gab Adkins, LUCI
--- NOTE | 2017-06-12 12:27 | NUR ---
TRANSFER ROOM: PATIENT GETTING OUT OF BED AND OUT OF HAND ,TRANSFERRED TO ANOTHER ROOM CLOSE TO NURSING STATION.FOR SAFETY REASONS. CAME AND AWARE. CALL LIGHT WITH IN REACH.BED AT LOWEST POSITION AND LOCKED.
--- NOTE | 2017-06-12 12:31 | NUR ---
PAGED: CALLED DR RUTH C/O SID HURTADO.
--- NOTE | 2017-06-12 12:45 | NUR ---
RN NOTES: PATIENT FINALLY AGREED TO HAVE HEMODIALYSIS WITH AGREEABLE WELL.
--- NOTE | 2017-06-12 12:50 | NUR ---
HEMODIALYSIS: HEMODIALYSIS STARTED BY KAYKAY FROM [facility].
[2017-06-12] MEDS ORDERED: COMMUNICATION ORDER XX ONE (13:00)
[2017-06-12] MEDS: LORazepam 1 MG TABLET PO SCH (13:36)
--- NOTE | 2017-06-12 14:56 | NUR ---
ROUNDS: HEMODIALYSIS ON GOING. AT BEDSIDE. STABLE.
[2017-06-12] MEDS ORDERED: POTASSIUM CHLORIDE 20 MEQ TAB.PRT.SR PO ONE (15:45)
--- NOTE | 2017-06-12 15:56 | NUR ---
WOUND RE-EVALUATION: Patient received in a [place] Bed with an IsoFlex STERLING mattress with low air-loss therapy, awake, cooperative (agitated earlier, tried to hit [facility]). Patient is unable to turn in bed independently. Mark Score is a 15. Intrinsic factors that delay wound healing: Diabetes Mellitus, severe Protein Malnutrition, Chronic Anemia, Chronic Encephalopathy. Extrinsic factors that delay wound healing: Decreased mobility. Wound Assessment: 1) Right Medial Posterior Heel: Acute on chronic pressure ulcer of prior unknown stage, present on admission. Wound bed is 90% dull red tissue, 10% brown tissue. No odor, no drainage. Gifty-wound pink and macerated. Measures 2.0 cm x 3.7 cm. Recommend continue: Cleanse wound with normal saline. Put moisture barrier cream onto periwound. Apply Venelex ointment onto wound bed. Cover with foam dressing. Wrap with Joanna wrap and secure with tape. 2) Left Medial Posterior Heel: [place] and brown discoloration, present on admission. No odor, no drainage. Gifty-wound intact. Tissue is soft. Measures 3.5 cm x 1.5 cm. Recommend continue: Elevate, offload and float bilateral heels with pillows lengthwise at all times. Also recommend continue: Reposition patient side to side only every 2 hours with pillow support, and off-load pressure areas with pillows for pressure re-distribution. Offload, elevate and float bilateral heels with Heelift Boots (Cut boots to allow heels to float freely within boots) or pillows. Perform skin care and monitor skin integrity Q shift. Use moisture barrier cream on buttocks and other moisture susceptible areas QID and as needed for soiling. Maintain patient on a low air-loss mattress.
--- NOTE | 2017-06-12 15:56 | NUR ---
WOUND CARE: CLEANSE NS LEFT HEEL,PHOTOS TAKEN BY SOHAIL ZUNIGA.APPLIED VENELEX OINTMENT TO WOUND BED,SURE PREP ON ASHLY WOUND AREA AND COVERED WITH OPTIFOAM GENTLE.
--- NOTE | 2017-06-12 16:05 | NUR ---
HEMODIALYSIS: HEMODIALYSIS STOPPED PER DIALYSIS NURSE , REQUESTED TO STOPPED HD BECAUSE PATIENT CAN NOT TOLERATE IT. HD GBJ=146SS.
--- NOTE | 2017-06-12 17:30 | NUR ---
BLOOD SUGAR: BLOOD KZVMO=293TT/DL,NOVOLOG 4 UNITS PER SLIDING SCALE GIVEN SUBCUTANEOUS AT LEFT UPPER ARM.
[2017-06-12] MEDS: EPOETIN ALFA 10,000 UNITS/ML VIAL SUBCUT SCH (17:34)
--- NOTE | 2017-06-12 17:44 | NUR ---
MEAL: ORDERING BOX OPERATOR ASSISTED PATIENT DURING DINNER. PATIENT HAVING TURKEY SANDWICH DURING ROUNDS.
--- NOTE | 2017-06-12 18:31 | NUR ---
end of shift: patient with intermittent confusion. tried to talk to him in a calm way ,not to get out of bed,for safety reasons,patient stated okay. came and brought food for the patient.call light with in reach. bed at lowest position and locked.bed alarm on.continue to monitor.
--- NOTE | 2017-06-12 19:55 | NUR ---
Initial Notes Patient alert, confused, stating he wants to go to a friends house- re oriented. Patient denies pain at this time. No SOB noted. IV site patent, flushes well. Goal of pain management, GI stability and safety this shift. Call light within reach. Will continue to monitor.
--- NOTE | 2017-06-12 20:48 | NUR ---
PAGED I PAGED DR. RUTH @ [phone] I SPOKE WITH TRISH LAU
[2017-06-12] MEDS: TACROLIMUS ANHYDROUS 0.5 MG CAPSULE (PROGRAF) PO SCH (20:56)
[2017-06-12] MEDS: BALSAM PERU/CASTOR OIL 60 GM OINT...G. TP SCH (20:56)
--- NOTE | 2017-06-12 22:00 | NUR ---
Notes Patient resting in bed. No s/s of pain noted. Blood sugar was checked, no insulin coverage needed. Bed alarm on. Call light within reach. Will continue to monitor.
[2017-06-13] VITALS (7 sets, daily range): BP systolic 121–182
--- NOTE | 2017-06-13 00:11 | NUR ---
Notes Patient sleeping at this time. No SOB noted. Afebrile. IV site patent, flushes well. Patient repositioned in bed. Call light within reach. Will continue to monitor.
--- NOTE | 2017-06-13 02:20 | NUR ---
Notes Patient resting in bed. No s/s of pain noted. No SOB noted. Call light within reach. Will continue to monitor.
[2017-06-13] MEDS: INSULIN ASPART 100 UNITS/ML, 10 ML VIAL (NovoLOG) SUBCUT SCH ×4 (05:58→22:03)
[2017-06-13] MEDS: TACROLIMUS ANHYDROUS 1 MG CAPSULE (PROGRAF) PO SCH (05:59)
--- NOTE | 2017-06-13 06:27 | NUR ---
Closing Notes Patient denies pain at this time. No SOB noted. IV site patent, flushes well. Goal of pain management, GI stability and safety met. Call light within reach. Will continue to monitor.
[2017-06-13 07:23] LABS: EOSINOPHILS # (AUTO) 0.1 K/uL (0.0-0.4); EOSINOPHILS % (AUTO) 1.8 % (0.0-4.0); HEMOGLOBIN 9.1 g/dL (14.0-18.0); LYMPHOCYTES # (AUTO) 0.4 K/uL (1.0-5.5); MEAN CORPUSCULAR HEMOGLOBIN 28 pg (27-31); MEAN CORPUSCULAR HGB CONC 33 % (32-36); MEAN CORPUSCULAR VOLUME 86 fL (79.0-98.0); MONOCYTES # (AUTO) 0.3 K/uL (0.0-1.0); NEUTROPHILS # (AUTO) 3.7 K/uL (1.8-7.7); NEUTROPHILS % (AUTO) 84.2 % (40.0-70.0); PLATELET COUNT (AUTO) 112 K/uL (130-430); RED BLOOD CELL COUNT(AUTO) 3.24 MIL/uL (4.2-6.2); RED CELL DISTRIBUTION WIDTH 17.5 % (9.0-15.0); WHITE BLOOD COUNT (AUTO) 4.5 K/uL (4.8-10.8)
[2017-06-13 07:47] LABS: CALCIUM 10.2 mg/dL (8.4-11.0); CREATININE 5.32 mg/dL (0.55-1.30); POTASSIUM 3.2 mmol/L (3.5-5.1)
--- NOTE | 2017-06-13 08:00 | NUR ---
INITIAL NOTE RECEIVED REPORT FROM AM NURSE, SCOTT. PT IS AWAKE, ALERT, CONFUSED, NO S/S OF ACUTE DISTRESS OR PAIN AT THIS TIME, BP NOTED TO BE ELEVATED WILL FOLLOW UP WITH MEDICATION, IV TO LFA INTACT, SALINE LOCKED, SIDE RAILS UP X3, BED ALARM ON, SAFETY MEASURES IN PLACE, CALL LIGHT WITHIN REACH, WILL MONITOR PT CLOSELY
[2017-06-13] MEDS: CHOLECALCIFEROL (VITAMIN D3) 2,000 UNIT TABLET PO SCH ×2 (08:53→21:45)
[2017-06-13] MEDS: MEGESTROL ACETATE 40 MG TABLET PO SCH (08:53)
[2017-06-13] MEDS: VITAMIN B COMPLEX 1 CAP/TAB PO SCH (08:53)
[2017-06-13] MEDS: PREDNISONE 20 MG TABLET PO SCH (08:53)
[2017-06-13] MEDS: COENZYME Q10 PO SCH (08:54)
[2017-06-13] MEDS: CARVEDILOL 25 MG TABLET (COREG) PO SCH ×2 (08:55→21:46)
[2017-06-13] MEDS: cloNIDine HCL 0.1 MG TABLET PO PRN ×2 (08:55→23:33)
--- NOTE | 2017-06-13 09:30 | NUR ---
PT UP WITH PHYSICAL THERAPY, PER PHYSICAL THERAPY PT ABLE TO STAND, SIDE STEP A FEW TIMES, PT IS MORE CONFUSED TODAY, PT RETURNED TO BED, AT BEDSIDE, SAFETY MEASURES IN PLACE, CALL LIGHT WITHIN REACH, WILL CONTINUE TO MONITOR
[2017-06-13] MEDS ORDERED: POTASSIUM CHLORIDE 20 MEQ TAB.PRT.SR PO ONE (10:00)
[2017-06-13] MEDS: BALSAM PERU/CASTOR OIL 60 GM OINT...G. TP SCH (10:21)
--- NOTE | 2017-06-13 10:56 | NUR ---
DISCHARGE PLANNING Called Lilli [facility] left voice message requesting return call back. Will follow up. Addendum: 06/13/17 at 1151 by Nona Mueller DP Spoke with Lilli at [facility] who was made aware DC order for today. Lilli stated facility still pending insurance auth. Once auth has been received will given bed assignment RN to report [phone]. Contracted ambulance [phone]. Placed transportation packet in nurse station. Pending insurance auth for bed assignment. Addendum: 06/13/17 at 1352 by Nona Mueller DP Spoke with Lilli at [facility] still pending insurance auth. Lilli stated will continue to follow up and keep DCP informed. Once auth has been received [facility] will give bed assignment.
--- NOTE | 2017-06-13 11:15 | NUR ---
BLOOD SUGAR 272, COVERED PER SLIDING SCALE, PT TOLERATED WELL, PT AWAKE, ALERT, COOPERATIVE AT THIS TIME, DENIES ANY NEEDS, AWAITING FOLLOW UP FROM CASE MANAGEMENT FOR ORDERS REGARDING DISCHARGE, WILL FOLLOW UP AND CONTINUE TO MONITOR PT CLOSELY
--- NOTE | 2017-06-13 12:27 | NUR ---
KODY PT ASSISTED TO SITTING POSITION, ASSISTED TO EAT, HAD SOME CHICKEN AND QUINOA, AND ALL HIS PEACHES, TOLERATED WELL, CALL LIGHT WITHIN REACH, SAFETY MEASURES IN PLACE, WILL CONTINUE TO MONITOR PT CLOSELY
--- NOTE | 2017-06-13 12:47 | NUR ---
Nutrition F/U Admitting Diagnosis Elevated troponin Reviewed Pertinent Medical/Surgical Hx Medical Record Patient Medical History Comment: Elevated troponin, rule out [place], Acute on Chronic Metabolic Encephalopathy, Thrombocytopenia, Anemia, ESRD on HD, Sytemic Myobacterium avium complex infection, Severe Protein Malnutrition, Non-healing ulcer of R Heel per MD notes. Subjective Information Pt seen resting in bed w/ lunch tray atop bedside table. Pt requested additional water, however, pt has been on a 1000 ml fluid restriction/day. Pt acknowledged. Pt reported that his appetite has been increasing, and tolerated breakfast well. RD encouraged pt to try to continue improving PO intakes to better meet optimal nutritional needs. Per MD orders, plans for D/C to SNF. Pt is not yet meeting optimal nutritional needs. Pt is not appropriate for nutrition education. Current Diet Order/Nutrition Support Renal standard, fluid restriction 1000 ml/day, 2 gm Na x1 day Patient/Significant Other Able To Verbalize Education Provided Not Indicated Pertinent Medications VIT B complex, megace, prednisone, VIT D-3, insulin aspart Pertinent Labs BG 187 H, POC BG 166 H, BUN 36 H, CRE 5.32 H, Alb 1.8L, H/H 9.1 L/28 L, WBC 4.5 L Height (Feet) 5 feet Height (Inches) 11.00 inches Weight (Pounds) 129 pounds (admission) Weight (Calculated Kilograms) 58.750046 kilograms Patient Weight 58.513 kg Body Mass Index 17.99 kg/m2 %IBW 75 Armstrong/Adjusted Body Weight 172 lb, 78 kg. Recent Weight Change Yes - 2-3 lb wt loss in 3 months Weight Status Underweight Usual Diet At Home Renal CCHO per EMR Skin Integrity Comment: Mark scale: 16; per nursing notes: R heel:wound Current % PO 40% average x5 meals; poor Estimated Energy Expenditure (kcals/day) 8454-2810 kcal/day (30-35 kcal/kg IBW for wt gain promotion) Estimated Protein Required (g/day) 93-101 gm/day (1.2-1.3 mg/kg IBW for ESRD on HD) Estimated Fluid Required (l/day) Per MD (ESRD) Problem/Etiology/Signs/Symptoms Inadequate nutritional intake related to physiologic demands as evidenced by poor appetite and 17% average PO intake. * ongoing Underweight related to poor nutritional intake as evidenced by BMI 18 and muscle/fat wasting in upper and lower extremities. * ongoing Expected Outcomes/Goals Monitor pt appetite and intake w/ goal of pt meeting at least 50% of estimated nutritional needs, labs trending WNL, normal GI function, skin integrity/wt maintenance. *ongoing Dietitian Recommendations * Recommend continuing renal standard, fluid restriction 1000 ml/day, 2 gm Na per MD * Recommend encourage increase PO intakes Follow Up Moderate Risk: F/U in 3-5 days
--- NOTE | 2017-06-13 12:53 | NUR ---
Dietitian Recommendations * Recommend continuing renal standard, fluid restriction 1000 ml/day, 2 gm Na per MD * Recommend encourage increase PO intakes LP, RD Please refer to Nutrition F/U for details.
--- NOTE | 2017-06-13 14:20 | NUR ---
ROUNDS PT HAD BM, PT CLEANSED AND LINEN CHANGED, PT REPOSITIONED TO OPPOSITE SIDE WITH PILLOW SUPPORT TO BILATERAL LOWER EXTREMITIES, AT BEDSIDE, CALL LIGHT AND PHONE WITHIN REACH, BED IN LOW POSITION AND LOCKED, WILL CONTINUE TO MONITOR PT CLOSELY, AWAITING DISCHARGE PENDING BED ASSIGNMENT
--- NOTE | 2017-06-13 14:45 | NUR ---
PHYSICAL THERAPY CO-SIGN The Physical Therapy Progress Notes documented by Milk Collector have been reviewed. Reviewed/Co-Signed by: Elidia Chaudhry, PT Documentation Done by: Azam Sotelo PTA I concur with the documentation of this CLIENT EXPERIENCE MANAGER. Patient making some slow and steady progress with PT and will benefit from more rehab services. Plan: continue PT as per plan of care if he remains in this hospital. Addendum: 06/13/17 at 1532 by Elidia Chaudhry PT Amended: Links added.
--- NOTE | 2017-06-13 16:30 | NUR ---
BLOOD SUGAR 369, COVERED PER SLIDING SCALE, PT IS AGITATED AND RESTLESS, DENIES ANY NEEDS AT THIS TIME, STATES HE WOULD JUST LIKE ME TO LEAVE, SAFETY MEASURES IN PLACE, CALL LIGHT WITHIN REACH, BED IN LOW POSITION AND LOCKED, BED ALARM ON, NO CALL RECEIVED FOR INSURANCE AUTHORIZATION AT THIS TIME, OR BED PLACEMENT, WILL FOLLOW UP
--- NOTE | 2017-06-13 18:30 | NUR ---
CLOSING NOTE PT LAYING IN BED, RESTING, EVEN RISE AND FALL OF CHEST, NOTED, EASY TO AROUSE, NO S/S OF ACUTE DISTRESS OR PAIN, ALL NEEDS ATTENDED TO THROUGHOUT SHIFT, SAFETY MEASURES MAINTAINED, CALL LIGHT WITHIN REACH, NO CALL RECEIVED FOR INSURANCE AUTHORIZATION OR ROOM ASSIGNMENT, WILL GIVE REPORT TO FOLLOWING SHIFT
--- NOTE | 2017-06-13 19:30 | NUR ---
NOTES RECEIVED THE PT FROM THE DAY NURSE.PT A/A/OX1.DENIES PAIN AND DISCOMFORT AT THIS TIME.MONITOR IN PLACE AND SHOWS.SR.IV INTACT TO LT FOREARM ,NO REDNESS OR SWELLING NOTED. REFUSED SCD.PORT A CATH INTACT TO RT UPPER CHEST.DRESSING TO RT HEEL IS DRY AND INTACT.PT WAS INCONTINENT OF STOOL AND URINE ,PT CLEANED AND REPOSITIONED WITH PILLOW SUPPORT.BED ALARM IS ON.WILL CONTINUE TO MONITOR.
--- NOTE | 2017-06-13 21:30 | NUR ---
NOTES ACCUCHECK WAS 269,INSULIN GIVEN PER SLIDING SCALE.
[2017-06-13] MEDS: TACROLIMUS ANHYDROUS 0.5 MG CAPSULE (PROGRAF) PO SCH (21:48)
--- NOTE | 2017-06-13 23:36 | NUR ---
NOTES BP IS HIGH 191/90 CATAPRES 0.1 MG GIVEN PO.WILL CONTINUE TO MONITOR.PT DENIES PAIN.
[2017-06-14 00:17] VITALS: BP_SYST 191
--- NOTE | 2017-06-14 00:43 | NUR ---
NOTES BP RECHECKED AND IS 152/84.
--- NOTE | 2017-06-14 01:35 | NUR ---
NOTES PT SLEEPING,CALL LIGHT WITHIN REACH.CONTINUE TO MONITOR.
--- NOTE | 2017-06-14 03:46 | NUR ---
notes pt remains asleep.bed alarm is on .call light within reach.continue to monitor.
[2017-06-14 04:10] VITALS: BP_SYST 161
--- NOTE | 2017-06-14 05:30 | NUR ---
NOTES PT SLEEPING,NO DISTRESS NOTED.CONTINUE TO MONITOR.
[2017-06-14] MEDS: TACROLIMUS ANHYDROUS 1 MG CAPSULE (PROGRAF) PO SCH (05:37)
[2017-06-14] MEDS: INSULIN ASPART 100 UNITS/ML, 10 ML VIAL (NovoLOG) SUBCUT SCH ×3 (05:42→16:52)
--- NOTE | 2017-06-14 06:14 | NUR ---
CLOSING NOTES PT AWAKEN FOR ACCUCHECK THAT WAS 202,INSULIN WAS GIVEN PER S/S.
[2017-06-14 06:56] LABS: BASOPHILS % (AUTO) 0.1 % (0.0-2.0); EOSINOPHILS # (AUTO) 0.1 K/uL (0.0-0.4); EOSINOPHILS % (AUTO) 2.6 % (0.0-4.0); HEMATOCRIT 22.9 % (36-54); HEMOGLOBIN 7.5 g/dL (14.0-18.0); LYMPHOCYTES # (AUTO) 0.6 K/uL (1.0-5.5); LYMPHOCYTES % (AUTO) 13.2 % (20.5-51.5); MEAN CORPUSCULAR HEMOGLOBIN 28 pg (27-31); MEAN CORPUSCULAR HGB CONC 33 % (32-36); MEAN CORPUSCULAR VOLUME 86 fL (79.0-98.0); MONOCYTES # (AUTO) 0.4 K/uL (0.0-1.0); MONOCYTES % (AUTO) 8.6 % (1.7-9.3); NEUTROPHILS # (AUTO) 3.1 K/uL (1.8-7.7); NEUTROPHILS % (AUTO) 75.5 % (40.0-70.0); PLATELET COUNT (AUTO) 109 K/uL (130-430); RED BLOOD CELL COUNT(AUTO) 2.67 MIL/uL (4.2-6.2); RED CELL DISTRIBUTION WIDTH 17.5 % (9.0-15.0); WHITE BLOOD COUNT (AUTO) 4.2 K/uL (4.8-10.8)
[2017-06-14 07:45] VITALS: BP_SYST 185
--- NOTE | 2017-06-14 07:45 | NUR ---
INITIAL ROUNDS Received pt AAOx2, very forgetful at times, no s/s resp distress, no c/o pain or discomfort. Plan of care reviewed with pt-pt very forgetful and unable to verbalize understanding-will reinforce all teachings. Noted perma-cath to right upper chest wall with dressing clean, dry and intact. Noted dressing to to right heel. Pt refused SCD-pt educated on reason for SCd pt stated "no, don't want them!". Noted pt with dry and flaky fingers. Pt on air mattress-will reposition pt Q 2hrs/PRN with pillow support and heels off-loaded for skin care and comfort. Side rails up x3, bed alarm on, room close to nursing station for safety. Call light within reach.
--- NOTE | 2017-06-14 08:20 | NUR ---
Tomi Resendiz (truck driver supervisor ) informed regarding lab results for today , no blood transfusion , with hemodialysis order for today.
[2017-06-14] MEDS: CARVEDILOL 25 MG TABLET (COREG) PO SCH (09:00)
[2017-06-14] MEDS: CHOLECALCIFEROL (VITAMIN D3) 2,000 UNIT TABLET PO SCH (09:00)
[2017-06-14] MEDS: COENZYME Q10 PO SCH (09:00)
[2017-06-14] MEDS: VITAMIN B COMPLEX 1 CAP/TAB PO SCH (09:00)
[2017-06-14] MEDS: HYDROcodone/ACETAMIN 5-325 MG TAB (NORCO/ VICODIN) PO SCH (09:00)
[2017-06-14] MEDS: PREDNISONE 20 MG TABLET PO SCH (09:00)
[2017-06-14] MEDS: MEGESTROL ACETATE 40 MG TABLET PO SCH (09:00)
[2017-06-14] MEDS ORDERED: amLODIPine BESYLATE 5 MG TABLET PO SCH (09:00)
[2017-06-14] MEDS: LORazepam 1 MG TABLET PO SCH (10:11)
[2017-06-14] MEDS: ACETAMINOPHEN 325 MG TABLET PO PRN ×2 (10:16→16:48)
--- NOTE | 2017-06-14 10:20 | NUR ---
DIALYSIS/PAIN Pt now starting on dialysis-given Ativan as ordered. Pt also c/o "pain everywhere", pt given Tylenol. Pt's does not want the [place]-stated pt gets too /confused & hostile when he takes it. Pt repositioned for comfort and skin care. Needs met. Pt's at bedside. Call light within reach.
--- NOTE | 2017-06-14 10:30 | NUR ---
DC PLANNING: Updated pt. and spouse at bedside of unable to transfer pt.to snf dt pending authorization from insurance. The pt. will have HD today.
[2017-06-14 12:05] VITALS: BP_SYST 117
--- NOTE | 2017-06-14 12:24 | NUR ---
DISCHARGE PLANNING Called emelyn Reeder at [facility] left voice message requesting return call back with status update on insurance auth for bed assignment for patient discharge. DCP will continue to follow up. Addendum: 06/14/17 at 1415 by Nona Mueller DP spoke with Lilli at [facility] who stated still pending insurance auth. Several message have been left with no return call back. Called insurance [facility] [phone] left voice message requesting return call back regarding ref#[id number]. Addendum: 06/14/17 at 1451 by Nona Mueller DP Spoke with Lilli insurance auth received patient assigned to room 315B at [facility] RN to report [phone] bed available anytime. Called contracted ambulance [facility] [phone] spoke with Lashae placed BLS transport on will call. Addendum: 06/14/17 at 1626 by Nona Mueller DP RADHA Mariee made aware. Called [facility] ambulance spoke with Marry unable to arrange transport today. Called [facility] [phone] spoke with Patrick arranged BLS transport poultry picker between 7-7:30pm.
--- NOTE | 2017-06-14 13:56 | NUR ---
PHYSICAL THERAPY CO-SIGN The Physical Therapy Progress Notes documented by Creative Writer have been reviewed. Reviewed/Co-Signed by: Tia Snow PT Documentation Done by:Yaron BASS PTA I CONCUR WITH THE DOCUMNETATION COMPLETED BY THE ABOVE DETAIL SERGEANT Addendum: 06/14/17 at 1357 by Tia Snow PT Amended: Links added.
--- NOTE | 2017-06-14 14:03 | NUR ---
ROUNDS/HD COMPLETED Pt lying in bed with no c/o pain or discomfort, remains forgetful at times. HD nurse now completing HD, 2L out, vital signs stable. Pt's at bedside. Call light within reach.
--- NOTE | 2017-06-14 15:56 | NUR ---
ROUNDS Pt resting quietly in bed visiting with his , no s/s resp distress, pt c/o mild pain "everywhere"-will give Tylenol as ordered. Spoke with Nona MORLEY Mechanical Engineering Teacher regarding transfer to [facility]-awaiting okay to discharge from Dr. Crain PERSONAL ATTENDANT. All precautions remain in place.
[2017-06-14] MEDS: BALSAM PERU/CASTOR OIL 60 GM OINT...G. TP SCH (16:33)
--- NOTE | 2017-06-14 16:35 | NUR ---
WOUND RE-EVALUATION: Patient received in a Hinckley Bed with an IsoFlex STERLING mattress with low air-loss therapy, awake, alert (kept pulling lower extremity away throughout treatment). Patient is unable to turn in bed independently. Mark Score is a 12. Intrinsic factors that delay wound healing: Diabetes Mellitus, severe Protein Malnutrition, Chronic Anemia, Chronic Encephalopathy. Extrinsic factors that delay wound healing: Decreased mobility. Wound Assessment: 1) Right Medial Posterior Heel: Acute on chronic pressure ulcer of prior unknown stage, present on admission. Wound bed is 100% pink tissue. No odor, no drainage. Skin growth observed. Gifty-wound pink. Measures 1.5 cm x 3.5 cm. Recommend continue: Cleanse wound with normal saline. Put moisture barrier cream onto periwound. Apply Venelex ointment onto wound bed. Cover with foam dressing. Wrap with Joanna wrap and secure with tape. 2) Left Medial Posterior Heel: Velma and brown discoloration, present on admission. No odor, no drainage. Gifty-wound intact. Tissue is soft. Measures 3.5 cm x 1.5 cm. Recommend continue: Elevate, offload and float bilateral heels with pillows lengthwise at all times. Also recommend continue: Reposition patient side to side only every 2 hours with pillow support, and off-load pressure areas with pillows for pressure re-distribution. Offload, elevate and float bilateral heels with Heelift Boots (Cut boots to allow heels to float freely within boots) or pillows. Perform skin care and monitor skin integrity Q shift. Use moisture barrier cream on buttocks and other moisture susceptible areas QID and as needed for soiling. Maintain patient on a low air-loss mattress.
--- NOTE | 2017-06-14 16:40 | NUR ---
WOUND CARE/PHOTO TAKEN Right Medial Heel: Wound bed is 100% pink tissue. No odor, no drainage. Skin growth observed, rosales-wound pink. Measures 1.5 cm x 3.5 cm. Wound cleansed wound with normal saline, moisture barrier cream applied to periwound periwound. Venelex ointment applied to wound bed. Covered with foam dressing and secured in place with Joanna wrap and secured with tape. Pt repositioned with pillow support and heels off-loaded for skin care and comfort.
[2017-06-14] MEDS: EPOETIN ALFA 10,000 UNITS/ML VIAL SUBCUT SCH (17:14)
--- NOTE | 2017-06-14 17:45 | NUR ---
REPORT CALLED Report given to Danna GARCIA at [facility].
[2017-06-14 18:00] VITALS: BP_SYST 155
[2017-06-14 18:37] VITALS: BP_SYST 155
--- NOTE | 2017-06-14 19:15 | NUR ---
CLOSING NOTE Pt resting quietly in bed with no s/s resp distress, no c/o pain or discomfort. Pt's at bedside. Endorsed to Khanh TOLEDO regarding pt's transfer tonight. Needs met, call light within reach.
--- NOTE | 2017-06-14 19:36 | NUR ---
notes RECEIVED THE PT FROM THE DAY NURSE.PT ALERT WITH NO COMPLAINTS AMBULANCE IS HERE .IV REMOVED IS AT THE BEDSIDE.PT TRANSFERED TO [facility].WITH PACKET AND PERSONAL BELONGINGS.
== END 2017-06-14 19:50 | DRG 682 ==
LOC: SED 15:13 → STU 17:29
PROVIDERS: ADMIT Internal Medicine; ATTEND Internal Medicine
PROC: 5A1D60Z (ICD-10-PCS; principal; 2017-06-09)
DX: I12.0 Hypertensive chronic kidney disease with stage 5 chronic kidney disease or end stage renal disease (principal); G93.41 Metabolic encephalopathy; E43 Unspecified severe protein-calorie malnutrition; D61.818 Other pancytopenia; T86.12 Kidney transplant failure; A31.0 Pulmonary mycobacterial infection; N18.6 End stage renal disease; Z68.1 Body mass index [BMI] 19.9 or less, adult; E87.1 Hypo-osmolality and hyponatremia; R62.7 Adult failure to thrive; F03.90 Unspecified dementia, unspecified severity, without behavioral disturbance, psychotic disturbance, mood disturbance, and anxiety; E11.621 Type 2 diabetes mellitus with foot ulcer; L89.610 Pressure ulcer of right heel, unstageable; E11.22 Type 2 diabetes mellitus with diabetic chronic kidney disease; Z99.2 Dependence on renal dialysis; D63.1 Anemia in chronic kidney disease; Y83.8 Other surgical procedures as the cause of abnormal reaction of the patient, or of later complication, without mention of misadventure at the time of the procedure; Z79.52 Long term (current) use of systemic steroids; Z79.899 Other long term (current) drug therapy
CPT/HCPCS: 36415; 71010; 80048; 80053; 81000-TC; 82550-TC; 82962; 83540-TC; 83550-TC; 83880; 84484; 85007; 85025; 85027; 85610-TC; 85730-TC; 86803; 86886; 86900; 86901; 87081; 90935; 90937; 93005; 93306; 97110-GP; 97530-GP; 99285; J0885; J1815; J7030; J7060; J7507; J7512